=== PATIENT | female | born 1985 | race Caucasian/White ===

== ENCOUNTER 2016-06-21 18:02 | Inpatient (IN) | payer OTHER ==
[2016-06-21] MEDS ORDERED: ONDANSETRON 4 MG/2 ML VIAL IVP STA (20:09)
[2016-06-21] MEDS ORDERED: SODIUM CHLORIDE 0.9% 1,000 ML IV ONE ×2 (20:09→21:02)
[2016-06-21] MEDS ORDERED: ONDANSETRON 4 MG/2 ML VIAL ONE (20:33)
[2016-06-21] MEDS ORDERED: CIPROFLOXACIN 400 MG/200 ML 200 ML IV ONE ×2 (21:01→21:04)
[2016-06-21] MEDS ORDERED: metroNIDAZOLE 500 MG/100 ML 100 ML IV ONE (21:01)
[2016-06-21] MEDS ORDERED: ACETAMINOPHEN 1,000 MG/100 ML 100 ML IV STA (21:01)
[2016-06-21] MEDS ORDERED: HYDROmorphone 1 MG/ML SYRINGE IVP STA (21:01)
[2016-06-21] MEDS ORDERED: ACETAMINOPHEN 1,000 MG/100 ML 100 ML IV ONE (21:04)
[2016-06-21] MEDS ORDERED: HYDROmorphone 1 MG/ML SYRINGE ONE (21:04)
[2016-06-21] MEDS ORDERED: SODIUM CHLORIDE FLUSH 0.9% 10 ML SYRINGE IVP PRN (21:32)
[2016-06-21] MEDS ORDERED: HYDROcod/ACETAM 10 MG/325 MG TABLET PO PRN (21:32)
[2016-06-21] MEDS ORDERED: ZOLPIDEM 5 MG TABLET PO PRN (21:32)
[2016-06-21] MEDS ORDERED: ACETAMINOPHEN 325 MG TABLET PO PRN (21:32)
[2016-06-21] MEDS ORDERED: IOPAMIDOL-300 100 ML VIAL IVP ONE (22:15)
[2016-06-21] MEDS: SODIUM CHLORIDE 0.9% 1,000 ML IV SCH (23:00)
[2016-06-21] MEDS: SODIUM CHLORIDE FLUSH 0.9% 10 ML SYRINGE IVP SCH (23:01)
[2016-06-21] MEDS: sulfaSALAzine 500 MG TABLET PO SCH (23:01)
[2016-06-21] MEDS: methylPREDNISolone SUCCINATE 125 MG/2 ML VIAL IVP SCH (23:51)
[2016-06-21] MEDS: ONDANSETRON 4 MG/2 ML VIAL IVP PRN (23:51)
[2016-06-21] MEDS: HYDROmorphone 1 MG/ML SYRINGE IVP PRN (23:52)
[2016-06-22] MEDS: HYDROcod/ACETAM 5/325 MG TABLET PO PRN ×6 (00:11→22:48)
[2016-06-22] MEDS: HYDROmorphone 1 MG/ML SYRINGE IVP PRN ×8 (02:02→22:47)
[2016-06-22] MEDS: metroNIDAZOLE 500 MG/100 ML 100 ML IV SCH ×4 (03:52→22:36)
[2016-06-22] MEDS: PROCHLORPERAZINE 10 MG/2 ML VIAL IVP PRN ×4 (03:58→23:06)
[2016-06-22] MEDS: SODIUM CHLORIDE 0.9% 1,000 ML IV SCH ×2 (06:15→15:53)
[2016-06-22] MEDS: sulfaSALAzine 500 MG TABLET PO SCH ×3 (06:16→22:36)
[2016-06-22] MEDS: methylPREDNISolone SUCCINATE 125 MG/2 ML VIAL IVP SCH ×2 (06:16→14:38)
[2016-06-22] MEDS: PANTOPRAZOLE 40 MG VIAL IVP SCH (06:16)
[2016-06-22] MEDS: SODIUM CHLORIDE FLUSH 0.9% 10 ML SYRINGE IVP SCH ×3 (06:17→21:32)
[2016-06-22] MEDS: ONDANSETRON 4 MG/2 ML VIAL IVP PRN (08:28)
[2016-06-22] MEDS: CIPROFLOXACIN 400 MG/200 ML 200 ML IV SCH ×2 (08:33→21:31)
[2016-06-22] MEDS: POLYETHYLENE GLYCOL 3350 17 GM PACKET PO SCH (09:07)
[2016-06-22] MEDS: HYDROCORTISONE SUCCINATE 100 MG/2 ML VIAL IVP SCH (22:36)
[2016-06-23] MEDS: HYDROmorphone 1 MG/ML SYRINGE IVP PRN (01:22)
[2016-06-23] MEDS: HYDROcod/ACETAM 5/325 MG TABLET PO PRN ×2 (01:23→17:00)
[2016-06-23] MEDS: metroNIDAZOLE 500 MG/100 ML 100 ML IV SCH (04:40)
[2016-06-23] MEDS: sulfaSALAzine 500 MG TABLET PO SCH ×3 (06:09→21:01)
[2016-06-23] MEDS: PANTOPRAZOLE 40 MG VIAL IVP SCH (06:09)
[2016-06-23] MEDS: HYDROCORTISONE SUCCINATE 100 MG/2 ML VIAL IVP SCH ×3 (06:09→21:02)
[2016-06-23] MEDS: SODIUM CHLORIDE FLUSH 0.9% 10 ML SYRINGE IVP SCH ×3 (06:10→21:02)
[2016-06-23] MEDS: ONDANSETRON 4 MG/2 ML VIAL IVP PRN (06:14)
[2016-06-23] MEDS: POLYETHYLENE GLYCOL 3350 17 GM PACKET PO SCH (08:39)
[2016-06-23] MEDS: CIPROFLOXACIN 400 MG/200 ML 200 ML IV SCH (10:46)
[2016-06-23] MEDS ORDERED: HYDROmorphone 2 MG TABLET PO PRN (13:51)
[2016-06-23] MEDS: ONDANSETRON ODT 4 MG TABLET TL PRN ×2 (14:21→21:01)
[2016-06-23] MEDS: predniSONE 20 MG TABLET PO SCH (15:08)
[2016-06-23] MEDS: metroNIDAZOLE 250 MG TABLET PO SCH ×2 (17:03→23:45)
[2016-06-23] MEDS: CIPROFLOXACIN 250 MG TABLET PO SCH (21:01)
[2016-06-24] MEDS: HYDROcod/ACETAM 5/325 MG TABLET PO PRN ×3 (01:47→09:52)
[2016-06-24] MEDS: ONDANSETRON ODT 4 MG TABLET TL PRN (05:34)
[2016-06-24] MEDS: SODIUM CHLORIDE FLUSH 0.9% 10 ML SYRINGE IVP SCH (06:09)
[2016-06-24] MEDS: sulfaSALAzine 500 MG TABLET PO SCH (06:13)
[2016-06-24] MEDS: metroNIDAZOLE 250 MG TABLET PO SCH (06:14)
[2016-06-24] MEDS ORDERED: PANTOPRAZOLE 40 MG TABLET PO SCH (07:00)
[2016-06-24] MEDS: CIPROFLOXACIN 250 MG TABLET PO SCH (08:32)
[2016-06-24] MEDS: predniSONE 20 MG TABLET PO SCH (08:32)
[2016-06-24] MEDS: POLYETHYLENE GLYCOL 3350 17 GM PACKET PO SCH (08:33)
== END 2016-06-24 10:06 | disposition home or self-care (01) | DRG 387 ==
DX: K50.10 Crohn's disease of large intestine without complications (principal); Z91.040 Latex allergy status; Z80.41 Family history of malignant neoplasm of ovary

== ENCOUNTER 2016-09-01 17:08 | Emergency (ER) | payer OTHER ==
[2016-09-01] MEDS ORDERED: predniSONE 20 MG TABLET PO STA (20:22)
[2016-09-01] MEDS ORDERED: LIDOCAINE 2%-EPI 1:100000 20 ML MDV ONE (20:22)
[2016-09-01] MEDS ORDERED: predniSONE 20 MG TABLET ONE (20:23)
== END 2016-09-01 20:44 | disposition home or self-care (01) ==
DX: L27.1 Localized skin eruption due to drugs and medicaments taken internally (principal); L72.3 Sebaceous cyst; L53.9 Erythematous condition, unspecified; K50.90 Crohn's disease, unspecified, without complications
CPT/HCPCS: 10160; 11400; 99283; J7512

== ENCOUNTER 2016-10-24 11:31 | Emergency (ER) | payer OTHER ==
--- NOTE | 2016-10-24 11:47 | ED Physician Documentation ---
PD HPI SKIN - Stated complaint Stated Complaint: LUMP RT SIDE FACE - Chief complaint Chief Complaint: Wound - History obtained from History obtained from: Patient - History of Present Illness Timing - onset: How many days ago (has had lump right side of face for couple of days, without drainage. Also has had ongoing mild stomach pains and some soft stool. Had not noted blood but is dark from iron supplement. She checked her blood count this morning on home machine and it read Hgb 5.5 so here for evaluation. Prior had been 8.2 or so.) Timing - duration: Days (2) Timing - details: Gradual onset Location: Face (right side) Quality / character: Painful, Discolored (red), Swelling. No: Draining Similar symptoms before: Diagnosis (staph abscesses) Review of Systems Constitutional: denies: Fever, Chills GI: reports: Diarrhea, Bloody / black stool (dark from iron, has not changed noticably.). denies: Vomiting, Constipation, Hematemesis : denies: Dysuria, Frequency Neurologic: denies: Near syncope, Headache PD PAST MEDICAL HISTORY - Past Medical History Cardiovascular: None Respiratory: None Neuro: None Endocrine/Autoimmune: None GI: Cholelithiasis, Ulcerative colitis, Crohn's disease : None HEENT: None Psych: None Musculoskeletal: None Derm: None - Past Surgical History Past Surgical History: No - Present Medications Home Medications: Ambulatory Orders Medication Instructions Recorded Confirmed Mesalamine [Canasa] 1 gm ID QPM 06/21/16 06/22/16 sulfaSALAzine [Azulfidine] 1,000 mg PO BIDWM 06/21/16 06/22/16 Hyoscyamine Sulfate [Levsin-Sl] 0.125 mg SL .Q4H PRN 06/22/16 06/22/16 Ciprofloxacin [Cipro] 250 mg PO BID #8 tablet 06/24/16 HYDROcod/ACETAM 5/325 [[place] 5/325] 1 tab PO Q4HR PRN #60 tablet 06/24/16 Ondansetron Odt [Zofran] 4 mg TL Q6H PRN #30 tablet 06/24/16 Prednisone 10 mg PO UD #108 tablet 06/24/16 metroNIDAZOLE [Flagyl] 500 mg PO Q6HR #16 tablet 06/24/16 predniSONE [Deltasone] 20 mg PO [id number] #21 tab 04/20/17 Cyanocobalamin (Vitamin B-12) 500 mcg SL DAILY #30 tab.subl 10/24/16 [Vitamin B-12 (500 mcg sublingual)] Doxycycline Hyclate 100 mg PO BID #14 tablet 10/24/16 Ferrous Sulfate 310 mg PO DAILY #200 ml 10/24/16 - Allergies Allergies/Adverse Reactions: Allergies Allergy/AdvReac Type Severity Reaction Status Date / Time latex Allergy Intermediate Itching Verified 10/24/16 12:05 Sulfa (Sulfonamide Allergy Unknown Verified 10/24/16 12:05 Antibiotics) - Social History Does the pt smoke?: No Smoking Status: Never smoker Does the pt drink ETOH?: No Does the pt have substance abuse?: No - Immunizations Immunizations are current?: Yes - POLST Patient has POLST: No PD ED PE NORMAL - Vitals Vital signs reviewed: Yes - General General: Alert and oriented X 3, No acute distress, Well developed/nourished - HEENT HEENT: Ears normal, Pharynx benign, Other (right side of face preauricular with 1 cm rounded tender, red lesion without drainage. No surrounding redness. ) - Neck Neck: Supple, no meningeal sign, No adenopathy - Cardiac Cardiac: RRR, No murmur - Respiratory Respiratory: Clear bilaterally - Abdomen Abdomen: Normal bowel sounds, Soft, Non tender, Non distended, No organomegaly - Rectal Rectal: Deferred - Back Back: No CVA TTP - Derm Derm: Normal color, Warm and dry - Extremities Extremities: Normal ROM s pain, No edema, No calf tenderness / cord - Neuro Neuro: Alert and oriented X 3, No motor deficit, Normal speech Results - Vitals Vitals: Oxygen O2 Source Room air - Labs Labs: Laboratory Tests 10/24/16 10/24/16 10/24/16 12:24 12:24 12:24 WBC 6.4 RBC 3.76 L Hgb 8.5 L Hct 27.1 L MCV 72.1 L MCH 22.5 L MCHC 31.2 L RDW 18.5 H Plt Count 405 MPV 6.8 L Reticulocyte % (Auto) 2.87 H Neut # 3.0 Lymph # 2.6 Slope # 0.6 Eos # 0.1 Baso # 0.0 Absolute Nucleated RBC 0.00 Nucleated RBCs 0.0 ESR Absolute Retic 0.108 Sodium 137 Potassium 3.6 Chloride 102 Carbon Dioxide 27 Anion Gap 8.0 BUN 11 Creatinine 0.5 Estimated GFR (MDRD) 146 Glucose 93 Calcium 9.2 Iron 8 L TIBC 322 % Saturation 2 L Transferrin 230 Total Bilirubin 0.3 AST 17 ALT 14 Alkaline Phosphatase 49 Total Protein 6.6 L Albumin 3.2 Globulin 3.4 Albumin/Globulin Ratio 0.9 L Lipase 19 L Vitamin B12 800 Folate 33.00 Blood Type Antibody Screen 10/24/16 10/24/16 12:24 12:24 WBC RBC Hgb Hct MCV MCH MCHC RDW Plt Count MPV Reticulocyte % (Auto) Neut # Lymph # Slope # Eos # Baso # Absolute Nucleated RBC Nucleated RBCs ESR 53 H Absolute Retic Sodium Potassium Chloride Carbon Dioxide Anion Gap BUN Creatinine Estimated GFR (MDRD) Glucose Calcium Iron TIBC % Saturation Transferrin Total Bilirubin AST ALT Alkaline Phosphatase Total Protein Albumin Globulin Albumin/Globulin Ratio Lipase Vitamin B12 Folate Blood Type A NEGATIVE Antibody Screen NEGATIVE Procedures - Abscess I&D (location) right side of face Preparation: Lidocaine 1% Incision: Incised with scalpel, Purulent drainage (just 2 drops), Irrigated Other: Pt tolerated well, Dressing applied (bandaid) PD MEDICAL DECISION MAKING - ED course Complexity details: reviewed results (blood count here is adequate. Still iron deficiet despite pill supplements. Can change to liquid orally to see if better. If not PMD would need to set up iron infusions. Her home Hgb test was inaccurate, which is good. Facial small abscess was lanced with drops of pus out. Will see how it does without abx at this point, pt preference. ), considered differential, d/w patient Departure - Departure Disposition: 01 Home, Self Care Clinical Impression: Facial abscess Crohn disease Qualifiers: Gastrointestinal tract location: unspecified location Digestive disease complication type: without complication Qualified Code(s): K50.90 - Crohn's disease, unspecified, without complications Anemia Qualifiers: Anemia type: iron deficiency Iron deficiency anemia type: chronic blood loss Qualified Code(s): D50.0 - Iron deficiency anemia secondary to blood loss ( chronic) Condition: Stable Record reviewed to determine appropriate education?: Yes Instructions: ED Abscess IandD, Disease Crohn Dc Follow-Up: [facility] [Provider Group] Prescriptions: Doxycycline Hyclate 100 mg PO BID #14 tablet Ferrous Sulfate 310 mg PO DAILY #200 ml Cyanocobalamin (Vitamin B-12) [Vitamin B-12 (500 mcg sublingual)] 500 mcg SL DAILY #30 tab.subl Comments: Change oral Iron tablet to liquid version to see if absorbs better. Other meds as usual. Warm compresses to the face abscess a few times daily. Recheck if not gone away over a few days; start Doxycycline oral antibiotic if it worsens. Discharge Date/Time: 10/24/16 14:16
[2016-10-24] MEDS ORDERED: SODIUM CHLORIDE 0.9% 1,000 ML IV ONE (12:18)
[2016-10-24 12:46] LABS: BASOPHILS % (AUTO) 0.7 %; EOSINOPHILS # (AUTO) 0.1 10^3/uL (0.0-0.7); EOSINOPHILS % (AUTO) 2.2 %; HCT - HEMATOCRIT 27.1 % (37.0-47.0); HGB - HEMOGLOBIN 8.5 g/dL (12.0-16.0); IMMATURE RETIC FRACTION 0.46; LYMPHOCYTES # (AUTO) 2.6 10^3/uL (1.5-3.5); LYMPHOCYTES % (AUTO) 40.3 %; MEAN CORPUSCULAR HEMOGLOBIN 22.5 pg (27.0-31.0); MEAN CORPUSCULAR HGB CONC 31.2 g/dL (32.0-36.0); MEAN CORPUSCULAR VOLUME 72.1 fL (81.0-99.0); MEAN PLATELET VOLUME 6.8 fL (7.9-10.8); MONOCYTES # (AUTO) 0.6 10^3/uL (0.0-1.0); MONOCYTES % (AUTO) 9.9 %; NEUTROPHILS % (AUTO) 46.9 %; RED BLOOD COUNT 3.76 10^6/uL (4.20-5.40); RED CELL DISTRIBUTION WIDTH 18.5 % (12.0-15.0); UNCORRECTED WHITE BLOOD COUNT 6.4 x10^3/uL; WHITE BLOOD COUNT 6.4 x10^3/uL (4.8-10.8)
[2016-10-24 13:22] LABS: ALBUMIN/GLOBULIN RATIO 0.9 (1.0-2.2); BILIRUBIN,TOTAL 0.3 mg/dL (0.2-1.0); CALCIUM 9.2 mg/dL (8.5-10.3); CREATININE 0.5 mg/dL (0.4-1.0); POTASSIUM 3.6 mmol/L (3.5-5.0); TOTAL PROTEIN 6.6 g/dL (6.7-8.2)
[2016-10-24 14:10] VITALS: BP 100/61
== END 2016-10-24 14:16 | disposition home or self-care (01) ==
LOC: ED 11:31
DX: L02.01 Cutaneous abscess of face (principal); K50.90 Crohn's disease, unspecified, without complications; D50.0 Iron deficiency anemia secondary to blood loss (chronic)
CPT/HCPCS: 10060; 36415; 80053; 82607; 82746; 82747; 83540; 83690; 84466; 85025; 85044; 85651; 86850; 86900; 86901; 99283; 99284

== ENCOUNTER 2016-11-02 07:06 | Outpatient (CLI) | payer OTHER ==
[2016-11-02] MEDS ORDERED: GADOBUTROL 7.5 MMOL/7.5 ML VIAL IVP ONE (09:06)
--- NOTE | 2016-11-02 13:06 | MRI Report ---
EXAM: MR ABDOMEN WITH AND WITHOUT CONTRAST MR PELVIS WITH AND WITHOUT CONTRAST EXAM DATE: 11/02/2016 09:08 AM. CLINICAL HISTORY: Indeterminate colitis. COMPARISON: 06/21/2016. 11/25/2013. TECHNIQUE: Multiplanar breath-hold T1, T2, and DWI sequences obtained through the abdomen and pelvis on an MR scanner. Images obtained before and after administration of 7 mL Gadav[address] intravenous contra st. FINDINGS: Abdomen: Lung Bases: Lung bases are clear. Included portions of the heart are unremarkable. Liver: Homogeneous signal intensity. No solid hepatic lesions. No intrahepatic ductal dilatation. 4 mm cyst in the dome of the liver. Gallbladder: The gallbladder is partially distended. There are intraluminal calculi. No gallbladder w all thickening or pericholecystic fluid. Pancreas: Pancreas enhances homogeneously. No pancreatic ductal dilatation. No peripancreatic edema. Spleen: The spleen appears normal. Kidneys and Adrenals: The kidneys appear normal with no mass or hydronephrosis. There are no cysts in the kidneys. The adrenals appear normal. Bowel: Adequate distention of the small bowel. Normal small jejunal and ileal fold pattern. The duode num and duodenal sweep are unremarkable. The terminal ileum appears unremarkable. No evidence for int ra-abdominal fluid collection. No evidence for fistula. No enlarged mesenteric lymph nodes are identi fied. No mass effect. Moderate volume of stool in the colon. No evidence of diverticulitis. Descendin g colon and distal transverse colon are mildly distended. There appears to be mucosal enhancement inv olving the distal transverse and descending colon extending to the proximal into the sigmoid colon. T he remainder of the sigmoid colon and rectum are filled with moderate volume of stool without clear e vidence for enhancement or thickening. Portions of the descending colon are not significantly distend ed. No other areas of abnormal wall enhancement are seen in the remainder of the small bowel or colon . The appendix is not well-visualized. No pericecal or right lower quadrant inflammatory changes are identified. Retroperitoneum: Abdominal aorta and IVC are normal in caliber nonenlarged retroperitoneal lymph node s. Pelvis: Bladder: Urinary bladder is adequately distended and unremarkable. Reproductive Organs: The uterus is unremarkable. Bilateral subcentimeter ovarian follicles are presen t, the largest in the right ovary measuring 8 mm. Small volume of pelvic free fluid. No pelvic adenop athy. No osseous abnormalities are identified. IMPRESSION: 1. Mucosal enhancement of the distal transverse and descending colon to the sigmoid colon with some p ortion of the descending colon not significantly distended. Findings may represent low-grade inflamm atory/infectious colitis and/or impart related to lack of significant distention. Moderate volume of stool is present in the remainder of the colon. No pericolonic fluid collections. 2. No area of abnormal enhancement or thickening of the small bowel, in particular the terminal ileum . Interval resolution of mild thickening of the transverse duodenum noted compared to 06/21/2016. No intra-abdominal or pelvic fluid collections. No evidence for fistula. 3. No enlarged abdominal or pelvic lymph nodes. 4. Cholelithiasis. No biliary ductal dilatation. [facility] Referring Provider Line: [phone] SITE ID: [id number]
== END 2016-11-02 07:07 | disposition home or self-care (01) ==
LOC: DI 07:06
DX: K52.9 Noninfective gastroenteritis and colitis, unspecified (principal)
CPT/HCPCS: 72197; 74183; A9585

== ENCOUNTER 2016-11-28 17:07 | Emergency (ER) | payer OTHER ==
[2016-11-28 17:19] VITALS: BP 110/74
[2016-11-28] MEDS ORDERED: PROPARACAINE 0.5% OPHTH DROPS 15 ML ONE (19:21)
[2016-11-28] MEDS ORDERED: TOBRAM/DEXAMETH OPHTH DROPS 2.5 ML RIGHTEYE STA (19:37)
--- NOTE | 2016-11-28 19:39 | ED Physician Documentation ---
PD HPI OPHTHO - Stated complaint Stated Complaint: R EYE IRRITATION - Chief complaint Chief Complaint: Heent - History obtained from History obtained from: Patient - History of Present Illness Timing - onset: Other (Accidentally used contact cleaning solution in her right eye instead of rinsing solution about 13 days ago and has persistent pain. She has not used her contacts since then. Vision is mildly blurry.) Review of Systems Constitutional: denies: Fever, Chills Eyes: reports: Discharge, Irritation. denies: Loss of vision, Decreased vision Ears: denies: Loss of hearing, Ear pain PD PAST MEDICAL HISTORY - Past Medical History Past Medical History: Yes Cardiovascular: None Respiratory: None Neuro: None Endocrine/Autoimmune: None GI: Cholelithiasis, Ulcerative colitis : None HEENT: None Psych: None Musculoskeletal: None Derm: None - Past Surgical History Past Surgical History: No - Present Medications Home Medications: Ambulatory Orders Medication Instructions Recorded Confirmed Cyanocobalamin (Vitamin B-12) 500 mcg SL DAILY #30 tab.subl 10/24/16 11/28/16 [Vitamin B-12 (500 mcg sublingual)] Ascorbic Acid [Vitamin C with [place] 0 mg DAILY 11/28/16 11/28/16 Hips] Biotin 0 mg DAILY 11/28/16 11/28/16 Cholecalciferol (Vitamin D3) 9,000 units DAILY 11/28/16 11/28/16 [Vitamin D3] Ferrous Sulfate 10 ml PO DAILY 11/28/16 11/28/16 Folic Acid 0 mg DAILY 11/28/16 11/28/16 Lactob/S.thermophl/Bifido [Vsl#3] 2 tab DAILY 11/28/16 11/28/16 Multivitamin [Multivitamins] 1 tab DAILY 11/28/16 11/28/16 Psyllium Husk [Fiber] 4 tab DAILY 11/28/16 11/28/16 Zinc 0 mg DAILY 11/28/16 11/28/16 - Allergies Allergies/Adverse Reactions: Allergies Allergy/AdvReac Type Severity Reaction Status Date / Time latex Allergy Intermediate Itching Verified 11/28/16 17:19 Sulfa (Sulfonamide Allergy Unknown Verified 11/28/16 17:19 Antibiotics) - Social History Does the pt smoke?: No Smoking Status: Never smoker Does the pt drink ETOH?: No Does the pt have substance abuse?: No - Immunizations Immunizations are current?: Yes - POLST Patient has POLST: No PD ED PE NORMAL - Vitals Vital signs reviewed: Yes - General General: Alert and oriented X 3, No acute distress - HEENT HEENT: PERRL, EOMI, Other (Right eye has focal medial perilimbal inflammation with Chemosis no fluorescein uptake) - Neuro Neuro: Alert and oriented X 3, Normal speech - Psych Psych: Normal mood, Normal affect Results - Vitals Vitals: Vital Signs - 24 hr 11/28/16 17:16 Temperature 36.6 C Heart Rate 100 Respiratory 18 Rate Blood Pressure 110/74 O2 Saturation 100 Oxygen O2 Source Room air PD MEDICAL DECISION MAKING - ED course ED course: Because of 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 Departure - Departure Disposition: 01 Home, Self Care Clinical Impression: Episcleritis of right eye Condition: Good Record reviewed to determine appropriate education?: Yes Comments: 1 eye drop twice a day for 1 week, then stop. [place] No contacts until they clear you.
[2016-11-28] MEDS ORDERED: TOBRAM/DEXAMETH OPHTH DROPS 2.5 ML ONE (20:05)
== END 2016-11-28 20:10 | disposition home or self-care (01) ==
LOC: ED 17:07
DX: H15.101 Unspecified episcleritis, right eye (principal)
CPT/HCPCS: 99283; A9270; J3490

== ENCOUNTER 2018-01-08 02:46 | Emergency (ER) | payer OTHER ==
[2018-01-08] MEDS ORDERED: SODIUM CHLORIDE 0.9% 1,000 ML IV ONE (02:51)
[2018-01-08] MEDS ORDERED: fentaNYL 100 MCG/2 ML VIAL IVP STA ×2 (03:00→05:00)
[2018-01-08] MEDS ORDERED: METOCLOPRAMIDE 10 MG/2 ML VIAL IVP STA (03:00)
--- NOTE | 2018-01-08 03:01 | ED Physician Documentation ---
History of Present Illness - Stated complaint Stated Complaint: ULCERATIVE COLITIS FLARE - Chief complaint Chief Complaint: Abd Pain - Additonal information Additional information: 32-year-old female presents the emergency department with increasing generalized abdominal pain with increasing episodes of diarrhea and blood in her stools. The patient has a history of ulcerative colitis and her symptoms started 2 weeks ago but in the past 3 days her symptoms have significantly progressed. The patient reports increased pain, cramping, mucousy bloody stools. This evening the patient had trouble sleeping and presented to the emergency department. No focal area of pain. No relieving factors. Symptoms are described as moderate. No other associated symptoms. Review of Systems Constitutional: reports: Fatigue. denies: Fever, Chills Eyes: denies: Discharge Ears: denies: Ear pain Nose: denies: Congestion Throat: denies: Sore throat Cardiac: denies: Chest pain / pressure Respiratory: denies: Dyspnea GI: reports: Abdominal Pain, Other (Bloody mucousy stools) : denies: Dysuria Skin: denies: Rash Musculoskeletal: denies: Neck pain Neurologic: denies: Generalized weakness Immunocompromised: denies: Chemotherapy PD PAST MEDICAL HISTORY - Past Medical History Cardiovascular: None Respiratory: None Endocrine/Autoimmune: None GI: Cholelithiasis, Ulcerative colitis : None HEENT: None Psych: None Musculoskeletal: None Derm: None - Past Surgical History Past Surgical History: No - Present Medications Home Medications: Ambulatory Orders Medication Instructions Recorded Confirmed Cyanocobalamin (Vitamin B-12) 500 mcg SL DAILY #30 tab.subl 10/24/16 11/28/16 [Vitamin B-12 (500 mcg sublingual)] Ascorbic Acid [Vitamin C with [place]aina 0 mg DAILY 11/28/16 11/28/16 Hips] Biotin 0 mg DAILY 11/28/16 11/28/16 Cholecalciferol (Vitamin D3) 9,000 units DAILY 11/28/16 11/28/16 [Vitamin D3] Ferrous Sulfate 10 ml PO DAILY 11/28/16 11/28/16 Folic Acid 0 mg DAILY 11/28/16 11/28/16 Lactob/S.thermophl/Bifido [Vsl#3] 2 tab DAILY 11/28/16 11/28/16 Multivitamin [Multivitamins] 1 tab DAILY 11/28/16 11/28/16 Psyllium Husk [Fiber] 4 tab DAILY 11/28/16 11/28/16 Zinc 0 mg DAILY 11/28/16 11/28/16 - Allergies Allergies/Adverse Reactions: Allergies Allergy/AdvReac Type Severity Reaction Status Date / Time latex Allergy Intermediate Itching Verified 01/08/18 02:53 Sulfa (Sulfonamide Allergy Unknown Verified 01/08/18 02:53 Antibiotics) - Social History Does the pt smoke?: No Smoking Status: Never smoker Does the pt drink ETOH?: No Does the pt have substance abuse?: No - Immunizations Immunizations are current?: Yes - POLST Patient has POLST: No PD ED PE NORMAL - General General: Alert and oriented X 3, No acute distress - HEENT HEENT: Atraumatic, PERRL, EOMI, Ears normal - Neck Neck: Supple, no meningeal sign - Cardiac Cardiac: RRR, Strong equal pulses - Respiratory Respiratory: No respiratory distress - Abdomen Abdomen: Soft. No: Non tender (Generalized lower abdominal tenderness, no rebound or peritoneal signs), Non distended - Back Back: No CVA TTP - Derm Derm: Normal color, No rash - Extremities Extremities: No deformity - Neuro Neuro: Alert and oriented X 3 Results - Vitals Vitals: Vital Signs - 24 hr 01/08/18 01/08/18 02:50 04:54 Temperature 37.5 C 36.8 C Heart Rate 80 74 Respiratory 18 15 Rate Blood Pressure 118/76 100/67 O2 Saturation 99 98 Oxygen O2 Source Room air - Labs Labs: Laboratory Tests 01/08/18 01/08/18 01/08/18 03:20 03:20 03:20 WBC 9.4 RBC 4.50 Hgb 13.7 Hct 39.2 MCV 87.0 MCH 30.5 MCHC 35.1 RDW 12.4 Plt Count 269 MPV 7.9 Neut # (Auto) 7.0 H Lymph # (Auto) 1.6 Simpson # (Auto) 0.6 Eos # (Auto) 0.2 Baso # (Auto) 0.0 Absolute Nucleated RBC 0.00 Nucleated RBC % 0.0 Sodium 136 Potassium 3.7 Chloride 101 Carbon Dioxide 26 Anion Gap 9.0 BUN 11 Creatinine 0.7 Estimated GFR (MDRD) 98 Glucose 103 H Calcium 9.4 Total Bilirubin 0.4 AST 22 ALT 18 Alkaline Phosphatase 61 Total Protein 7.4 Albumin 3.8 Globulin 3.6 Albumin/Globulin Ratio 1.1 Lipase 38 Serum HCG, Qual NEGATIVE Urine Color Urine Clarity Urine pH Ur Specific [place] Urine Protein Urine Glucose (UA) Urine Ketones Urine Occult Blood Urine Nitrite Urine Bilirubin Urine Urobilinogen Ur Leukocyte Esterase Urine RBC Urine WBC Ur Squamous Epith Cells Urine Bacteria Ur Microscopic Review Urine Culture Comments 01/08/18 03:50 WBC RBC Hgb Hct MCV MCH MCHC RDW Plt Count MPV Neut # (Auto) Lymph # (Auto) Simpson # (Auto) Eos # (Auto) Baso # (Auto) Absolute Nucleated RBC Nucleated RBC % Sodium Potassium Chloride Carbon Dioxide Anion Gap BUN Creatinine Estimated GFR (MDRD) Glucose Calcium Total Bilirubin AST ALT Alkaline Phosphatase Total Protein Albumin Globulin Albumin/Globulin Ratio Lipase Serum HCG, Qual Urine Color YELLOW Urine Clarity CLEAR Urine pH 6.0 Ur Specific [place] <=1.005 Urine Protein NEGATIVE Urine Glucose (UA) NEGATIVE Urine Ketones TRACE Urine Occult Blood TRACE-INTA Urine Nitrite NEGATIVE Urine Bilirubin NEGATIVE Urine Urobilinogen 0.2 (NORMAL) Ur Leukocyte Esterase TRACE H Urine RBC None Seen Urine WBC 4-5 Ur Squamous Epith Cells MOD Squamous H Urine Bacteria None Seen Ur Microscopic Review INDICATED Urine Culture Comments NOT INDICATED - Rads (name of study) CT abd/pelvis Radiology: Final report received (IMPRESSION: Wall thickening in the descending colon, compatible with colitis. No evidence of bowel obstruction or perforation. ) PD MEDICAL DECISION MAKING - ED course ED course: On reevaluation the patient is resting comfortably and she appears to be much improved. The patient appears well-hydrated, nontoxic and her workup shows colitis. This appears uncomplicated and currently the patient appears appropriate for discharge home and ongoing outpatient management. I discussed the findings and plan with the patient. She understands and agrees to the plan. I discussed warning signs and recommended returning to the emergency department immediately for worsening or any concerns - Sepsis Event Vital Signs: Vital Signs - 24 hr 01/08/18 01/08/18 02:50 04:54 Temperature 37.5 C 36.8 C Heart Rate 80 74 Respiratory 18 15 Rate Blood Pressure 118/76 100/67 O2 Saturation 99 98 Oxygen O2 Source Room air Departure - Departure Disposition: 01 Home, Self Care Clinical Impression: Acute abdominal pain Ulcerative colitis Qualifiers: Ulcerative colitis location: unspecified ulcerative colitis location Digestive disease complication type: with rectal bleeding Qualified Code(s): K51.911 - Ulcerative colitis, unspecified with rectal bleeding Condition: Good Instructions: Colitis Ulcerative Dc, Abdominal Pain, ED Diet [place] Follow-Up: Don Jones DO [Primary Care Provider] - Within 3 Days Comments: Please follow-up with your manager market this week for Reevaluation. Please return to the emergency department immediately for worsening symptoms or any concerns
[2018-01-08 03:45] LABS: ALBUMIN 3.8 g/dL (3.2-5.5); ALBUMIN/GLOBULIN RATIO 1.1 (1.0-2.2); BILIRUBIN,TOTAL 0.4 mg/dL (0.2-1.0); CALCIUM 9.4 mg/dL (8.5-10.3); CREATININE 0.7 mg/dL (0.4-1.0); TOTAL PROTEIN 7.4 g/dL (6.7-8.2)
[2018-01-08 03:48] LABS: BASOPHILS % (AUTO) 0.3 %; EOSINOPHILS # (AUTO) 0.2 10^3/uL (0.0-0.7); EOSINOPHILS % (AUTO) 2.1 %; HGB - HEMOGLOBIN 13.7 g/dL (12.0-16.0); LYMPHOCYTES # (AUTO) 1.6 10^3/uL (1.5-3.5); LYMPHOCYTES % (AUTO) 16.7 %; MEAN CORPUSCULAR HEMOGLOBIN 30.5 pg (27.0-31.0); MEAN CORPUSCULAR HGB CONC 35.1 g/dL (32.0-36.0); MEAN PLATELET VOLUME 7.9 fL (7.9-10.8); MONOCYTES # (AUTO) 0.6 10^3/uL (0.0-1.0); MONOCYTES % (AUTO) 6.7 %; NEUTROPHILS % (AUTO) 74.2 %; PLT - PLATELET COUNT 269 10^3/uL (130-450); RED CELL DISTRIBUTION WIDTH 12.4 % (12.0-15.0); WHITE BLOOD COUNT 9.4 x10^3/uL (4.8-10.8)
[2018-01-08 04:11] LABS: BILIRUBIN,URINE NEGATIVE (NEGATIVE); GLUCOSE, URINE (UA) NEGATIVE (NEGATIVE); KETONES,URINE (UA) TRACE mg/dL (NEGATIVE); LEUKOCYTE ESTERASE, URINE TRACE (NEGATIVE); NITRITE,URINE NEGATIVE (NEGATIVE); OCCULT BLOOD,URINE TRACE-INTA (NEGATIVE); PROTEIN,URINE NEGATIVE (NEGATIVE); UROBILINOGEN,URINE 0.2 (NORMAL) E.U./dL (NORMAL)
[2018-01-08 04:15] LABS: BACTERIA,URINE None Seen /HPF (None Seen); CLARITY,URINE CLEAR (CLEAR); RBC,URINE None Seen /HPF (0-5); SQUAMOUS EPITHELIAL CELL,UR MOD Squamous (<= Few)
[2018-01-08 04:15] LABS: HCG,QUALITATIVE BLOOD NEGATIVE
[2018-01-08] MEDS ORDERED: IOPAMIDOL-300 100 ML VIAL ONE (04:18)
[2018-01-08] MEDS ORDERED: IOPAMIDOL-300 100 ML VIAL IVP ONE (04:49)
[2018-01-08] MEDS ORDERED: PROMETHAZINE INJ 25 MG in SODIUM CHLORIDE 0.9% 50 ML IV STA (05:00)
--- NOTE | 2018-01-08 05:05 | CT Report ---
Reason: Increasing abdominal pain, h/o UC Procedure Date: 01/08/2018 Accession Number: [id number] / [id number] Procedure: CT - Abdomen/Pelvis W/ CPT Code: FULL RESULT: EXAM: CT ABDOMEN AND PELVIS EXAM DATE: 01/08/2018 04:52 AM. CLINICAL HISTORY: Increasing abdominal pain, history of ulcerative colitis COMPARISONS: ABDOMEN/PELVIS W/ 06/21/2016. TECHNIQUE: Routine helical CT imaging was performed through the abdomen and pelvis. IV contrast: ISOVUE 300 100mL. Enteric contrast: No. Reconstructions: Coronal and sagittal. In accordance with CT protocol optimization, one or more of the following dose reduction techniques were utilized for this exam: automated exposure control, adjustment of mA and/or KV based on patient size, or use of iterative reconstructive technique. FINDINGS: Lung Bases: Unremarkable. Liver: Normal. No masses. Gallbladder/Bile Ducts: Unremarkable. Spleen: Normal. Pancreas: Normal. Adrenal Glands: Normal. Kidneys: Normal. No masses or hydronephrosis. Peritoneal Cavity/Bowel: There is wall thickening of the descending colon. No small bowel dilatation, free gas, or free fluid. No abdominal adenopathy. The appendix is well visualized and normal. Pelvic Organs: IUD is noted in the uterus. No pelvic adenopathy or free fluid. Vasculature: No aneurysms or other significant abnormality. Bones: No significant abnormality. Other: None. IMPRESSION: Wall thickening in the descending colon, compatible with colitis. No evidence of bowel obstruction or perforation. [facility]
[2018-01-08] MEDS: diphenhydrAMINE INJ 50 MG/ML VIAL IVP STA ×2 (05:06→05:16)
[2018-01-08] MEDS ORDERED: DEXAMETHASONE 10 MG/ML VIAL IV STA (05:36)
[2018-01-08 06:48] VITALS: BP 101/60
== END 2018-01-08 06:20 | disposition home or self-care (01) ==
LOC: ED 02:46
DX: K51.911 Ulcerative colitis, unspecified with rectal bleeding (principal)
CPT/HCPCS: 36415; 74177; 80053; 81001; 83690; 84703; 85025; 96365; 96375; 96376; 99283; 99284; J1200; J2765; J7040; Q9967; 81003; 87086

== ENCOUNTER 2018-01-23 21:25 | Inpatient (IN) | payer OTHER ==
[2018-01-23] MEDS ORDERED: SODIUM CHLORIDE 0.9% 1,000 ML IV ONE (21:54)
[2018-01-23] MEDS ORDERED: ONDANSETRON 4 MG/2 ML VIAL IVP STA (22:10)
[2018-01-23] MEDS ORDERED: ACETAMINOPHEN 1,000 MG/100 ML 100 ML IV ONE (22:10)
[2018-01-23] MEDS ORDERED: methylPREDNISolone SUCCINATE 125 MG/2 ML VIAL IVP STA (22:19)
[2018-01-23 22:28] LABS: BASOPHILS # (AUTO) 0.1 10^3/uL (0.0-0.1); BASOPHILS % (AUTO) 0.5 %; EOSINOPHILS % (AUTO) 0.3 %; HGB - HEMOGLOBIN 12.6 g/dL (12.0-16.0); LYMPHOCYTES # (AUTO) 2.4 10^3/uL (1.5-3.5); LYMPHOCYTES % (AUTO) 21.1 %; MEAN CORPUSCULAR HGB CONC 34.3 g/dL (32.0-36.0); MEAN CORPUSCULAR VOLUME 87.5 fL (81.0-99.0); MEAN PLATELET VOLUME 6.7 fL (7.9-10.8); MONOCYTES # (AUTO) 1.2 10^3/uL (0.0-1.0); MONOCYTES % (AUTO) 10.1 %; NEUTROPHILS # (AUTO) 7.8 10^3/uL (1.5-6.6); PLT - PLATELET COUNT 377 10^3/uL (130-450); RED BLOOD COUNT 4.18 10^6/uL (4.20-5.40); RED CELL DISTRIBUTION WIDTH 12.4 % (12.0-15.0); WHITE BLOOD COUNT 11.5 x10^3/uL (4.8-10.8)
[2018-01-23] MEDS ORDERED: MORPHINE 2 MG/ML CARPUJECT IVP STA (22:43)
[2018-01-23 22:44] LABS: ALBUMIN 3.6 g/dL (3.2-5.5); BILIRUBIN,TOTAL 0.4 mg/dL (0.2-1.0); CALCIUM 9.1 mg/dL (8.5-10.3); CREATININE 0.8 mg/dL (0.4-1.0); TOTAL PROTEIN 7.1 g/dL (6.7-8.2)
[2018-01-23] MEDS ORDERED: CIPROFLOXACIN 400 MG/200 ML 200 ML IV ONE (23:56)
[2018-01-23] MEDS ORDERED: metroNIDAZOLE 500 MG/100 ML 500 MG/100 ML BAG IV ONE (23:56)
--- NOTE | 2018-01-23 23:59 | ED Physician Documentation ---
PD HPI ABD PAIN - Stated complaint Stated Complaint: RECTAL BLEEDING/VOMITING - Chief complaint Chief Complaint: Abd Pain - History obtained from History obtained from: Patient - History of Present Illness Timing - onset: How many weeks ago (1) Timing - details: Gradual onset, Still present Quality: Cramping, Aching Location: All over / everywhere Worsened by: Eating Associated symptoms: Fever, Nausea, Vomiting, Diarrhea Similar symptoms before: Work up / diagnostics, Treatment Recently seen: Emergency Dept - Additional information Additional information: Patient is a 32 year old female with a history of crohns who is presenting to the emergency department for fevers, chills and worsening blood in her stools. Patient came in about [address] at that time showed some enteritis. patient had been on some oral steroids but her symptoms persist.ed. Patient has had multiple episodes of bloody stools. Review of Systems Constitutional: reports: Fever, Chills Eyes: reports: Reviewed and negative Ears: reports: Reviewed and negative Nose: reports: Reviewed and negative Cardiac: denies: Chest pain / pressure Respiratory: denies: Dyspnea, Cough GI: reports: Abdominal Pain, Nausea, Diarrhea, Bloody / black stool : denies: Dysuria, Frequency, Hesitancy Musculoskeletal: denies: Neck pain, Back pain Neurologic: denies: Focal weakness Immunocompromised: denies: Immunocompromised PD PAST MEDICAL HISTORY - Past Medical History Past Medical History: Yes Cardiovascular: None Respiratory: None Endocrine/Autoimmune: None GI: Cholelithiasis, Ulcerative colitis : None HEENT: None Psych: None Musculoskeletal: None Derm: None - Past Surgical History Past Surgical History: No - Present Medications Home Medications: Ambulatory Orders Medication Instructions Recorded Confirmed Cyanocobalamin (Vitamin B-12) 500 mcg SL DAILY #30 tab.subl 10/24/16 11/28/16 [Vitamin B-12 (500 mcg sublingual)] Ascorbic Acid [Vitamin C with Alaina 0 mg DAILY 11/28/16 11/28/16 Hips] Biotin 0 mg DAILY 11/28/16 11/28/16 Cholecalciferol (Vitamin D3) 9,000 units DAILY 11/28/16 11/28/16 [Vitamin D3] Ferrous Sulfate 10 ml PO DAILY 11/28/16 11/28/16 Folic Acid 0 mg DAILY 11/28/16 11/28/16 Lactob/S.thermophl/Bifido [Vsl#3] 2 tab DAILY 11/28/16 11/28/16 Multivitamin [Multivitamins] 1 tab DAILY 11/28/16 11/28/16 Psyllium Husk [Fiber] 4 tab DAILY 11/28/16 11/28/16 Zinc 0 mg DAILY 11/28/16 11/28/16 HYDROcod/ACETAM 5/325 [Leroy 5/325] 1 each PO Q6H PRN #15 tablet 01/08/18 Ondansetron Odt [Zofran] 4 mg TL Q6H PRN #10 tablet 01/08/18 - Allergies Allergies/Adverse Reactions: Allergies Allergy/AdvReac Type Severity Reaction Status Date / Time latex Allergy Intermediate Itching Verified 01/08/18 02:53 Sulfa (Sulfonamide Allergy Unknown Verified 01/08/18 02:53 Antibiotics) - Social History Does the pt smoke?: No Smoking Status: Never smoker Does the pt drink ETOH?: No Does the pt have substance abuse?: No - Immunizations Immunizations are current?: Yes - POLST Patient has POLST: No PD ED PE NORMAL - Vitals Vital signs reviewed: Yes - General General: Alert and oriented X 3 - Neck Neck: Supple, no meningeal sign - Respiratory Respiratory: No respiratory distress - Derm Derm: Normal color, Warm and dry - Extremities Extremities: No deformity - Neuro Neuro: Alert and oriented X 3 Eye Opening: Spontaneous Motor: Obeys Commands Verbal: Confused GCS Score: 14 PD ED PE EXPANDED - General General: Alert, Other (moderate distress) - HEENT HEENT: Dry mucous membranes - Cardiac Cardiac: Tachy - Abdomen Abdomen: Tender to palpation, Generalized/diffuse. No: Rebound, Guarding Results - Vitals Vitals: Vital Signs - 24 hr 01/23/18 01/23/18 01/23/18 21:30 22:55 22:57 Temperature 38.9 C H 39.2 C H 39.2 C H Heart Rate 111 H 95 Respiratory 18 16 Rate Blood Pressure 102/65 113/62 O2 Saturation 100 100 01/23/18 01/23/18 01/24/18 23:20 23:59 00:19 Temperature 38.6 C H Heart Rate 99 98 Respiratory 16 17 Rate Blood Pressure 106/60 104/65 O2 Saturation 99 97 Oxygen O2 Source Room air - Labs Labs: Laboratory Tests 01/23/18 01/23/18 01/23/18 22:20 22:20 22:20 WBC 11.5 H RBC 4.18 L Hgb 12.6 Hct 36.6 L MCV 87.5 MCH 30.0 MCHC 34.3 RDW 12.4 Plt Count 377 MPV 6.7 L Neut # (Auto) 7.8 H Lymph # (Auto) 2.4 Tyrrell # (Auto) 1.2 H Eos # (Auto) 0.0 Baso # (Auto) 0.1 Absolute Nucleated RBC 0.01 Nucleated RBC % 0.1 Sodium 138 Potassium 3.3 L Chloride 99 L Carbon Dioxide 27 Anion Gap 12.0 BUN 13 Creatinine 0.8 Estimated GFR (MDRD) 84 L Glucose 106 H Lactic Acid 1.6 Calcium 9.1 Total Bilirubin 0.4 AST 22 ALT 24 Alkaline Phosphatase 60 Total Protein 7.1 Albumin 3.6 Globulin 3.5 Albumin/Globulin Ratio 1.0 Lipase 43 PD MEDICAL DECISION MAKING - ED course Complexity details: reviewed old records, reviewed results, re-evaluated patient, considered differential, d/w patient, d/w sap ppm consultant ED course: Patient was seen and examined at bedside. IV access was gained and labs were drawn. patient was started on a fluid bolus, zofran solumedrol and IV acetaminophen. Patient's symptoms did improve. patient did have a bowel movement with significant blood. Patient's previous notes were reviewed and patient recently had CT that showed colitis. Patient was started on cipro and flagly. Case was discussed with the hospitaist and patient was was admitted for further evaluation and care. - Sepsis Event Vital Signs: Vital Signs - 24 hr 01/23/18 01/23/18 01/23/18 21:30 22:55 22:57 Temperature 38.9 C H 39.2 C H 39.2 C H Heart Rate 111 H 95 Respiratory 18 16 Rate Blood Pressure 102/65 113/62 O2 Saturation 100 100 01/23/18 01/23/18 01/24/18 23:20 23:59 00:19 Temperature 38.6 C H Heart Rate 99 98 Respiratory 16 17 Rate Blood Pressure 106/60 104/65 O2 Saturation 99 97 Oxygen O2 Source Room air Departure - Departure Disposition: [facility] DC/Xfer Clinical Impression: GI bleed, Crohn disease
--- NOTE | 2018-01-24 01:11 | HISTORY & PHYSICAL EXAMINATION ---
Chief Complaint - Chief Complaint Chief Complaint: left-sided abdominal pain and bloody stools History of Present Illness - History of Present Illness HPI Comment/Other: Patient is a 32 y/o female with history of crohn's disease who presented to the ED with complain of left sided abdominal pain and multiple bloody stools. He symptoms have been going on for a month but came in today because of the persistence and frequency of her symptoms. She was last admitted to the hospital in June 2017 for similar symptoms. She is currently on lialda and prednisone 30mg po. She is being worked up by her gastro-enterologist (Dr Arian Jose), in anticipation of starting Humira. She had flex sig done on 01/19/18. She reports nausea, vomiting, increased body pain and a fever. She denies chest pain or CHARANJIT. Her last CT of abdomen/pelvis was on 01/08/18 and showed colitis only. History - Past Medical History Cardiovascular: reports: None Respiratory: reports: None Endocrine/Autoimmune: reports: None GI: reports: Cholelithiasis, Crohn's disease : reports: None HEENT: reports: None Psych: reports: None Musculoskeletal: reports: None Derm: reports: None MRSA Hx?: No - Family & Social History Living arrangement: At home Living Situation: With spouse/s.o. - Substance History Use: Uses substance without health or social issues: NONE - POLST Patient has POLST: No POLST Status: Full Code Meds/Allgy - Home Medications Home Medications: Ambulatory Orders Medication Instructions Recorded Confirmed Cyanocobalamin (Vitamin B-12) 500 mcg SL DAILY #30 tab.subl 10/24/16 11/28/16 [Vitamin B-12 (500 mcg sublingual)] Ascorbic Acid [Vitamin C with Alaina 0 mg DAILY 11/28/16 11/28/16 Hips] Biotin 0 mg DAILY 11/28/16 11/28/16 Cholecalciferol (Vitamin D3) 9,000 units DAILY 11/28/16 11/28/16 [Vitamin D3] Ferrous Sulfate 10 ml PO DAILY 11/28/16 11/28/16 Folic Acid 0 mg DAILY 11/28/16 11/28/16 Lactob/S.thermophl/Bifido [Vsl#3] 2 tab DAILY 11/28/16 11/28/16 Multivitamin [Multivitamins] 1 tab DAILY 11/28/16 11/28/16 Psyllium Husk [Fiber] 4 tab DAILY 11/28/16 11/28/16 Zinc 0 mg DAILY 11/28/16 11/28/16 HYDROcod/ACETAM 5/325 [[place]berry 5/325] 1 each PO Q6H PRN #15 tablet 01/08/18 Ondansetron Odt [Zofran] 4 mg TL Q6H PRN #10 tablet 01/08/18 - Allergies Allergies/Adverse Reactions: Allergies Allergy/AdvReac Type Severity Reaction Status Date / Time latex Allergy Intermediate Itching Verified 01/08/18 02:53 Sulfa (Sulfonamide Allergy Unknown Verified 01/08/18 02:53 Antibiotics) Review of Systems - Constitutional Constitutional: reports: Fatigue - Eyes Eyes: denies: Pain, Irritation, Vision loss - Ears, Nose & Throat Ears, Nose & Throat: denies: Tinnitus, Vertigo, Nosebleeds, Sore throat - Cardiovascular Cariovascular: denies: Irregular heart rate, Palpitations, Chest pain - Respiratory Respiratory: denies: Cough, Sputum production, Wheezing, Hemoptysis - Gastrointestinal Gastrointestinal: reports: Abdominal pain, Diarrhea, Bloody stools, Nausea, Vomiting. denies: Abdominal distention - Genitourinary Genitourinary: denies: Dysuria, Frequency, Urgency, Hematuria - Musculoskeletal Musculoskeletal: denies: Muscle aches, Stiffness, Joint pain, Joint swelling - Integumentary Integumentary: denies: Rash, Pruritis, Dryness - Neurological Neurological: denies: General weakness, Focal weakness, Headache, Dizziness, Numbness - Psychiatric Psychiatric: denies: Depression, Anxiety - Hematologic/Lymphatic Hematologic/Lymphatic: denies: Anemia, Bruising, Petechiae, Blood clots, Lymphadenopathy Exam - Vital Signs Vital Signs: Vital Signs x48h Temp Pulse Resp BP Pulse Ox 01/24/18 00:19 98 17 104/65 97 01/23/18 23:59 38.6 C H 01/23/18 23:20 99 16 106/60 99 01/23/18 22:57 39.2 C H 01/23/18 22:55 39.2 C H 95 16 113/62 100 01/23/18 21:30 38.9 C H 111 H 18 102/65 100 - Physical Exam General Appearance: positive: Moderate distress Eyes Bilateral: positive: Normal inspection, PERRL, EOMI ENT: positive: ENT inspection nml, Pharynx nml Neck: positive: Nml inspection, Thyroid nml, No JVD Respiratory: positive: Chest non-tender, No respiratory distress, Breath sounds nml Cardiovascular: positive: Regular rate & rhythm, No murmur Abdomen: positive: No organomegaly, Nml bowel sounds, No distention, Tenderness Rectal: positive: Bloody stool Back: positive: Nml inspection Skin: positive: Color nml, No rash, Warm, Dry Extremities: positive: Non-tender, Full ROM, Nml appearance, No pedal edema Neurologic/Psychiatric: positive: Oriented x3, CN's nml (2-12), Motor nml, Sensation nml Conclusion/Plan - Problem List (1) Crohn disease Conclusion/Plan: Bowel rest except for meds and sips of water Patient given solumedrol in the ED Hydrocortisone 100mg IV tid ordered per GI recs from previous admission Cipro 400mg IV bid Flagyl 500mg IV tid IV hydration with normal saline at 100ml/hr Pain management with morphine Qualifiers: Gastrointestinal tract location: large intestine Digestive disease complication type: with rectal bleeding Qualified Code(s): K50.111 - Crohn's disease of large intestine with rectal bleeding - Lab Results Fish Bones: 01/23/18 22:20 01/23/18 22:20 Core Measures - Anticipated LOS I expect patient to be DC'd or transferred within 96 hours.: Yes - DVT/VTE - Prophylaxis VTE/DVT Device ordered at admit?: Yes VTE/DVT Prophylaxis med ordered at admit?: No Not Ordered - Medical Reason: Contraindicated
[2018-01-24] MEDS: MORPHINE 2 MG/ML CARPUJECT IVP PRN ×5 (02:16→16:58)
[2018-01-24] MEDS: SODIUM CHLORIDE FLUSH 0.9% 10 ML SYRINGE IVP SCH ×3 (02:16→16:03)
[2018-01-24] MEDS: SODIUM CHLORIDE 0.9% 1,000 ML IV SCH ×2 (02:30→13:34)
[2018-01-24 05:16] LABS: CALCIUM 8.3 mg/dL (8.5-10.3); CREATININE 0.5 mg/dL (0.4-1.0)
[2018-01-24 05:26] LABS: BASOPHILS % (AUTO) 0.1 %; HGB - HEMOGLOBIN 10.2 g/dL (12.0-16.0); LYMPHOCYTES # (AUTO) 1.5 10^3/uL (1.5-3.5); LYMPHOCYTES % (AUTO) 16.5 %; MEAN CORPUSCULAR HEMOGLOBIN 30.7 pg (27.0-31.0); MEAN CORPUSCULAR HGB CONC 34.7 g/dL (32.0-36.0); MEAN CORPUSCULAR VOLUME 88.4 fL (81.0-99.0); MONOCYTES # (AUTO) 0.2 10^3/uL (0.0-1.0); MONOCYTES % (AUTO) 2.2 %; NEUTROPHILS # (AUTO) 7.2 10^3/uL (1.5-6.6); NEUTROPHILS % (AUTO) 81.2 %; PLT - PLATELET COUNT 297 10^3/uL (130-450); RED BLOOD COUNT 3.33 10^6/uL (4.20-5.40); RED CELL DISTRIBUTION WIDTH 12.3 % (12.0-15.0); WHITE BLOOD COUNT 8.8 x10^3/uL (4.8-10.8)
[2018-01-24] MEDS: SODIUM CHLORIDE FLUSH 0.9% 10 ML SYRINGE IVP PRN (06:30)
[2018-01-24] MEDS: PANTOPRAZOLE 40 MG VIAL IVP SCH (06:30)
[2018-01-24 07:07] LABS: BILIRUBIN,URINE NEGATIVE (NEGATIVE); GLUCOSE, URINE (UA) NEGATIVE (NEGATIVE); KETONES,URINE (UA) NEGATIVE (NEGATIVE); LEUKOCYTE ESTERASE, URINE NEGATIVE (NEGATIVE); NITRITE,URINE NEGATIVE (NEGATIVE); OCCULT BLOOD,URINE NEGATIVE (NEGATIVE); PROTEIN,URINE NEGATIVE (NEGATIVE); UROBILINOGEN,URINE 0.2 (NORMAL) E.U./dL (NORMAL)
[2018-01-24 07:09] LABS: CLARITY,URINE CLEAR (CLEAR)
[2018-01-24] MEDS: POLYETHYLENE GLYCOL 3350 17 GM PACKET PO SCH (08:11)
[2018-01-24] MEDS: HYDROCORTISONE SUCCINATE 100 MG/2 ML VIAL IVP SCH ×2 (08:11→13:32)
[2018-01-24] MEDS: CIPROFLOXACIN 400 MG/200 ML 200 ML IV SCH ×2 (08:17→19:15)
[2018-01-24] MEDS: metroNIDAZOLE 500 MG/100 ML 500 MG/100 ML BAG IV SCH ×2 (09:18→16:03)
[2018-01-24] MEDS: LACTOB/S.THERMOPHL/BIFIDO CAPSULE PO SCH (16:03)
[2018-01-24] MEDS: OMEGA-3 ACID ETHYL ESTERS 1 GM CAPSULE PO SCH (16:03)
[2018-01-24] MEDS: FOLIC ACID 1 MG TABLET PO SCH (16:03)
[2018-01-24] MEDS: HYDROmorphone 2 MG/ML VIAL IVP PRN (17:26)
--- NOTE | 2018-01-24 19:34 | PROVIDER PROGRESS NOTE ---
Assessment/Plan - Problem List (1) Exacerbation of Crohn's disease Qualifiers: Digestive disease complication type: with rectal bleeding Qualified Code(s): K50.911 - Crohn's disease, unspecified, with rectal bleeding Assessment/Plan: Pt knows her recurrent presentation and she thinks she is slightly better. She spoke to her new Image Assembler, who advised that we recheck a Hepatitis panel. Continue current plan for Crohn's treatment with iv antibiotics, pain meds, bowel rest. (2) Abdominal pain Qualifiers: Abdominal location: lower abdomen, unspecified Qualified Code(s): R10.30 - Lower abdominal pain, unspecified Assessment/Plan: Will add Hyosciamine (which he mother a nurse suggested) and I will try it. (3) Anemia Qualifiers: Qualified Code(s): D50.0 - Iron deficiency anemia secondary to blood loss (chronic) Assessment/Plan: This is presumably from her bloody diarrhea. Follow CBC daily. - Current Meds Current Meds: Current Medications Generic Name Dose Route Start Last Admin Trade Name Anu PRN Reason Stop Dose Admin Folic Acid 1 mg 01/24/18 15:36 01/24/18 16:03 PO 1 mg DAILY SUSANNE Administration Hydrocortisone Sodium Succinate 100 mg 01/24/18 09:00 01/24/18 13:32 Solu-Cortef IVP 100 mg TID SUSANNE Administration Hydromorphone HCl 2 mg 01/24/18 17:07 01/24/18 17:26 Dilaudid (Vial) IVP 2 mg Q2H PRN Administration PAIN Ciprofloxacin 200 mls @ 200 mls/hr 01/24/18 08:00 01/24/18 19:15 Cipro 400 Mg/200 Ml IV 200 mls/hr Q12H SUSANNE Administration Sodium Chloride 1,000 mls @ 100 mls/hr 01/24/18 01:00 01/24/18 13:34 Normal Saline 0.9% IV 100 mls/hr .Q10H SUSANNE Administration Metronidazole 500 mg in 100 mls @ 100 mls/hr 01/24/18 09:00 01/24/18 18:17 Flagyl 500 Mg/100 Ml IV Infused Q8H SUSANNE Infusion Lactobacil/Bifidobact/Streptococcus 1 cap 01/24/18 17:00 01/24/18 16:03 Vsl#3 PO 1 cap BIDWM SUSANNE Administration [id number] Ethyl Esters 1 gm 01/24/18 17:00 01/24/18 16:03 Lovaza PO 1 gm DAILY SUSANNE Administration Pantoprazole Sodium 40 mg 01/24/18 07:00 01/24/18 06:30 Protonix IVP 40 mg QDAC SUSANNE Administration Polyethylene Glycol 17 gm 01/24/18 09:00 01/24/18 08:11 Miralax PO 17 gm DAILY SUSANNE Administration Sodium Chloride 10 ml 01/24/18 00:36 01/24/18 06:30 Normal Saline Flush 0.9% IVP 10 ml PRN PRN Administration NEEDED PER PROVIDER ORDERS Sodium Chloride 10 ml 01/24/18 01:00 01/24/18 16:03 Normal Saline Flush 0.9% IVP Not Given 0100,0900,1700 SUSANNE - Lab Result Fish Bone Diagrams: 01/25/18 04:35 01/25/18 04:35 - Additional Planning My Orders: My Active Orders 01/24/18 13:03 HEPATITIS B CORE AB TOTAL [REFLAB] Routine HEPATITIS B SURFACE AB QN IMM [REFLAB] Routine HEPATITIS B SURFACE AG W CONF [REFLAB] Routine HEPATITIS BE ANTIBODY [REFLAB] Routine HEPATITIS BE ANTIGEN [REFLAB] Routine HEPATITIS C AB RFLX RNA QN [REFLAB] Routine HEPATITIS C RNA QUANT RT PCR [REFLAB] Routine HEPATITIS C VIRAL RNA GENOTYPE [REFLAB] Routine 01/24/18 15:36 Folic Acid 1 mg PO DAILY 01/24/18 17:00 Lactob/S.thermophl/Bifido [Vsl#3] 1 cap PO BIDWM [place]-3 Acid Ethyl Esters [Lovaza] 1 gm PO DAILY 01/24/18 17:07 HYDROmorphone (VIAL) [Dilaudid (Vial)] 2 mg IVP Q2H PRN 01/24/18 Dinner Clear Liquid Diet [DIET] 01/25/18 07:00 Hyoscyamine [Levsin] 0.125 mg SL AC Subjective - Subjective Patient Reports: Feeling Better, Other (Still having loose stools and minimal abdominal pain now,) Objective Vital Signs: Vital Signs - 24 hr 01/23/18 01/23/18 01/23/18 21:30 22:55 22:57 Temperature 38.9 C H 39.2 C H 39.2 C H Heart Rate 111 H 95 Heart Rate [ Brachial] Respiratory 18 16 Rate Blood Pressure 102/65 113/62 Blood Pressure [Right Brachial artery] O2 Saturation 100 100 01/23/18 01/23/18 01/24/18 23:20 23:59 00:19 Temperature 38.6 C H Heart Rate 99 98 Heart Rate [ Brachial] Respiratory 16 17 Rate Blood Pressure 106/60 104/65 Blood Pressure [Right Brachial artery] O2 Saturation 99 97 01/24/18 01/24/18 01/24/18 01:10 01:44 02:00 Temperature 37 C 37.1 C Heart Rate 88 69 Heart Rate [ 62 Brachial] Respiratory 16 16 18 Rate Blood Pressure 99/59 L 103/60 Blood Pressure 101/53 L [Right Brachial artery] O2 Saturation 97 97 99 01/24/18 01/24/18 01/24/18 07:46 10:41 16:00 Temperature 36.6 C 36.6 C 36.9 C Heart Rate 55 L Heart Rate [ 54 L 62 Brachial] Respiratory 19 18 14 Rate Blood Pressure Blood Pressure 91/47 L 95/59 L [Right Brachial artery] O2 Saturation 90 L 99 98 Oxygen O2 Source Room air I&O (Last 24 Hrs): Intake and Output Totals x24h 01/22/18 01/23/18 01/24/18 23:59 23:59 23:59 Intake Total 1100 1700 Output Total 550 Balance 1100 1150 General: Alert, Oriented x3 HEENT: Mucous membr. moist/pink Neck: Supple, No JVD Neuro: Non Focal Cardiovascular: No murmurs Respiratory: No respiratory distress, Breath sounds nml Abdomen: Soft, No tenderness Extremities: No edema - Results Results: Laboratory Results WBC 8.8 x10^3/uL (4.8-10.8) 01/24/18 04:50 RBC 3.33 10^6/uL (4.20-5.40) L 01/24/18 04:50 Hgb 10.2 g/dL (12.0-16.0) L 01/24/18 04:50 Hct 29.5 % (37.0-47.0) L 01/24/18 04:50 MCV 88.4 fL (81.0-99.0) 01/24/18 04:50 MCH 30.7 pg (27.0-31.0) 01/24/18 04:50 MCHC 34.7 g/dL (32.0-36.0) 01/24/18 04:50 RDW 12.3 % (12.0-15.0) 01/24/18 04:50 Plt Count 297 10^3/uL (130-450) 01/24/18 04:50 MPV 7.0 fL (7.9-10.8) L 01/24/18 04:50 Neut # (Auto) 7.2 10^3/uL (1.5-6.6) H 01/24/18 04:50 Lymph # (Auto) 1.5 10^3/uL (1.5-3.5) 01/24/18 04:50 Hendry # (Auto) 0.2 10^3/uL (0.0-1.0) 01/24/18 04:50 Eos # (Auto) 0.0 10^3/uL (0.0-0.7) 01/24/18 04:50 Baso # (Auto) 0.0 10^3/uL (0.0-0.1) 01/24/18 04:50 Absolute Nucleated RBC 0.00 x10^3/uL 01/24/18 04:50 Nucleated RBC % 0.0 /100WBC 01/24/18 04:50 Sodium 138 mmol/L (135-145) 01/24/18 04:50 Potassium 4.1 mmol/L (3.5-5.0) 01/24/18 04:50 Chloride 105 mmol/L (101-111) 01/24/18 04:50 Carbon Dioxide 25 mmol/L (21-32) 01/24/18 04:50 Anion Gap 8.0 (6-13) 01/24/18 04:50 BUN 10 mg/dL (6-20) 01/24/18 04:50 Creatinine 0.5 mg/dL (0.4-1.0) 01/24/18 04:50 Estimated GFR (MDRD) 145 (>89) 01/24/18 04:50 Glucose 157 mg/dL (70-100) H 01/24/18 04:50 Lactic Acid 1.6 mmol/L (0.5-2.2) 01/23/18 22:20 Calcium 8.3 mg/dL (8.5-10.3) L 01/24/18 04:50 Total Bilirubin 0.4 mg/dL (0.2-1.0) 01/23/18 22:20 AST 22 IU/L (10-42) 01/23/18 22:20 ALT 24 IU/L (10-60) 01/23/18 22:20 Alkaline Phosphatase 60 IU/L (42-121) 01/23/18 22:20 Total Protein 7.1 g/dL (6.7-8.2) 01/23/18 22:20 Albumin 3.6 g/dL (3.2-5.5) 01/23/18 22:20 Globulin 3.5 g/dL (2.1-4.2) 01/23/18 22:20 Albumin/Globulin Ratio 1.0 (1.0-2.2) 01/23/18 22:20 Lipase 43 U/L (22-51) 01/23/18 22:20 Urine Color YELLOW 01/24/18 06:45 Urine Clarity CLEAR (CLEAR) 01/24/18 06:45 Urine pH 7.0 PH (5.0-7.5) 01/24/18 06:45 Ur Specific Serena 1.020 (1.002-1.030) 01/24/18 06:45 Urine Protein NEGATIVE mg/dL (NEGATIVE) 01/24/18 06:45 Urine Glucose (UA) NEGATIVE mg/dL (NEGATIVE) 01/24/18 06:45 Urine Ketones NEGATIVE mg/dL (NEGATIVE) 01/24/18 06:45 Urine Occult Blood NEGATIVE (NEGATIVE) 01/24/18 06:45 Urine Nitrite NEGATIVE (NEGATIVE) 01/24/18 06:45 Urine Bilirubin NEGATIVE (NEGATIVE) 01/24/18 06:45 Urine Urobilinogen 0.2 (NORMAL) E.U./dL (NORMAL) 01/24/18 06:45 Ur Leukocyte Esterase NEGATIVE (NEGATIVE) 01/24/18 06:45 Ur Microscopic Review NOT INDICATED 01/24/18 06:45 Urine Culture Comments NOT INDICATED 01/24/18 06:45 - Procedures Procedures: Procedures CLOSED ENDOSCOPIC BIOPSY OF LARGE INTESTINE (11/26/13) ABX Reporting Has patient been on IV antibiotics over the past 48 hours?: Yes
[2018-01-25] MEDS: HYDROmorphone 2 MG/ML VIAL IVP PRN ×5 (00:22→18:31)
[2018-01-25] MEDS: SODIUM CHLORIDE FLUSH 0.9% 10 ML SYRINGE IVP SCH ×3 (00:23→14:28)
[2018-01-25] MEDS: SODIUM CHLORIDE FLUSH 0.9% 10 ML SYRINGE IVP PRN ×5 (00:23→21:47)
[2018-01-25] MEDS: ONDANSETRON 4 MG/2 ML VIAL IVP PRN (00:40)
[2018-01-25] MEDS: HYDROCORTISONE SUCCINATE 100 MG/2 ML VIAL IVP SCH ×4 (00:41→21:47)
[2018-01-25] MEDS: SODIUM CHLORIDE 0.9% 1,000 ML IV SCH ×2 (02:09→07:24)
[2018-01-25] MEDS: metroNIDAZOLE 500 MG/100 ML 500 MG/100 ML BAG IV SCH ×3 (03:42→16:17)
[2018-01-25 05:11] LABS: EOSINOPHILS % (AUTO) 0.1 %; HGB - HEMOGLOBIN 9.8 g/dL (12.0-16.0); LYMPHOCYTES % (AUTO) 14.9 %; MEAN CORPUSCULAR HEMOGLOBIN 30.8 pg (27.0-31.0); MEAN CORPUSCULAR HGB CONC 35.2 g/dL (32.0-36.0); MEAN CORPUSCULAR VOLUME 87.5 fL (81.0-99.0); MONOCYTES # (AUTO) 0.6 10^3/uL (0.0-1.0); MONOCYTES % (AUTO) 8.3 %; NEUTROPHILS # (AUTO) 5.3 10^3/uL (1.5-6.6); NEUTROPHILS % (AUTO) 76.7 %; PLT - PLATELET COUNT 291 10^3/uL (130-450); RED BLOOD COUNT 3.19 10^6/uL (4.20-5.40); RED CELL DISTRIBUTION WIDTH 12.2 % (12.0-15.0)
[2018-01-25 05:19] LABS: CALCIUM 8.1 mg/dL (8.5-10.3); CREATININE 0.6 mg/dL (0.4-1.0)
[2018-01-25] MEDS: PANTOPRAZOLE 40 MG VIAL IVP SCH (07:13)
[2018-01-25] MEDS: HYOSCYAMINE SL 0.125 MG TABLET SL SCH ×3 (07:15→16:17)
[2018-01-25] MEDS: CIPROFLOXACIN 400 MG/200 ML 200 ML IV SCH ×2 (07:45→20:16)
[2018-01-25] MEDS: FOLIC ACID 1 MG TABLET PO SCH (07:45)
[2018-01-25] MEDS: LACTOB/S.THERMOPHL/BIFIDO CAPSULE PO SCH ×2 (07:45→16:17)
[2018-01-25] MEDS: OMEGA-3 ACID ETHYL ESTERS 1 GM CAPSULE PO SCH (09:30)
[2018-01-25] MEDS: POLYETHYLENE GLYCOL 3350 17 GM PACKET PO SCH (09:30)
[2018-01-25] MEDS ORDERED: SODIUM CHLORIDE 0.9% 1,000 ML IV SCH (15:50)
--- NOTE | 2018-01-25 15:56 | PROVIDER PROGRESS NOTE ---
Assessment/Plan - Problem List (1) Exacerbation of Crohn's disease Qualifiers: Digestive disease complication type: with rectal bleeding Qualified Code(s): K50.911 - Crohn's disease, unspecified, with rectal bleeding Assessment/Plan: Diarrhea has turned into slightly formed with liquid stool, no blood. Pt tolerated parts of her solid food diet. Pharmacy has obtained reconciled home med list and she was on Bentyl (which wasnt working), Prednisone and Liada. Will restart Prednisone and Liada (or our substitute compound). Hyosciamine has improved the crampy pain. Will decrease iv fluids to assess if she can sustain fluid needs. Will continue food to assess if she can take in nutritional needs. Possible DCh tomorrow. (2) Abdominal pain Qualifiers: Abdominal location: lower abdomen, unspecified Qualified Code(s): R10.30 - Lower abdominal pain, unspecified Assessment/Plan: Pain resolved with 1 day of bowel rest and new Hyosciamine. Continue present plan. (3) Anemia Qualifiers: Qualified Code(s): D50.0 - Iron deficiency anemia secondary to blood loss (chronic) Assessment/Plan: Will assess B12, Folate, Iron studies and replace. Follow CBC. - Current Meds Current Meds: Current Medications Generic Name Dose Route Start Last Admin Trade Name Freq PRN Reason Stop Dose Admin Folic Acid 1 mg 01/24/18 15:36 01/25/18 07:45 PO 1 mg DAILY SUSANNE Administration Hydrocortisone Sodium Succinate 100 mg 01/24/18 09:00 01/25/18 13:35 Solu-Cortef IVP 100 mg TID SUSANNE Administration Hydromorphone HCl 2 mg 01/24/18 17:07 01/25/18 14:28 Dilaudid (Vial) IVP 2 mg Q2H PRN Administration PAIN Hyoscyamine 0.125 mg 01/25/18 07:00 01/25/18 10:32 Levsin SL 0.125 mg AC SUSANNE Administration Ciprofloxacin 200 mls @ 200 mls/hr 01/24/18 08:00 01/25/18 09:00 Cipro 400 Mg/200 Ml IV Infused Q12H SUSANNE Infusion Metronidazole 500 mg in 100 mls @ 100 mls/hr 01/24/18 09:00 01/25/18 10:30 Flagyl 500 Mg/100 Ml IV Infused Q8H SUSANNE Infusion Lactobacil/Bifidobact/Streptococcus 1 cap 01/24/18 17:00 01/25/18 07:45 Vsl#3 PO 1 cap BIDWM SUSANNE Administration [id number] Ethyl Esters 1 gm 01/24/18 17:00 01/25/18 09:30 Lovaza PO 1 gm DAILY SUSANNE Administration Ondansetron HCl 4 mg 01/24/18 00:36 01/25/18 00:40 Zofran Inj IVP 4 mg Q6HR PRN Administration Nausea / Vomiting Pantoprazole Sodium 40 mg 01/24/18 07:00 01/25/18 07:13 Protonix IVP 40 mg QDAC SUSANNE Administration Polyethylene Glycol 17 gm 01/24/18 09:00 01/25/18 09:30 Miralax PO 17 gm DAILY SUSANNE Administration Sodium Chloride 10 ml 01/24/18 00:36 01/25/18 04:10 Normal Saline Flush 0.9% IVP 10 ml PRN PRN Administration NEEDED PER PROVIDER ORDERS Sodium Chloride 10 ml 01/24/18 01:00 01/25/18 14:28 Normal Saline Flush 0.9% IVP 10 ml 0100,0900,1700 SUSANNE Administration - Lab Result Fish Bone Diagrams: 01/25/18 04:35 01/25/18 04:35 - Additional Planning My Orders: My Active Orders 01/24/18 15:36 Folic Acid 1 mg PO DAILY 01/24/18 17:00 Lactob/S.thermophl/Bifido [Vsl#3] 1 cap PO BIDWM [place]-3 Acid Ethyl Esters [Lovaza] 1 gm PO DAILY 01/24/18 17:07 HYDROmorphone (VIAL) [Dilaudid (Vial)] 2 mg IVP Q2H PRN 01/25/18 07:00 Hyoscyamine [Levsin] 0.125 mg SL AC 01/25/18 15:49 predniSONE [Deltasone] 30 mg PO DAILY 01/25/18 15:50 Sodium Chloride 0.9% [Normal Saline 0.9%] 1,000 ml IV 30 mls/hr 01/25/18 21:00 Mesalamine [Lialda] 2.4 mg PO BID 01/25/18 Dinner Regular Diet [DIET] Subjective - Subjective Patient Reports: Feeling Better Objective Vital Signs: Vital Signs - 24 hr 01/24/18 01/25/18 01/25/18 16:00 00:00 04:52 Temperature 36.9 C 36.9 C 37.0 C Heart Rate [ 62 68 54 L Brachial] Respiratory 14 16 16 Rate Blood Pressure 95/59 L 96/54 L 120/65 [Right Brachial artery] O2 Saturation 98 96 98 01/25/18 08:47 Temperature 36.8 C Heart Rate [ 55 L Brachial] Respiratory 18 Rate Blood Pressure 111/62 [Right Brachial artery] O2 Saturation 100 Oxygen O2 Source Room air I&O (Last 24 Hrs): Intake and Output Totals x24h 01/23/18 01/24/18 01/25/18 23:59 23:59 23:59 Intake Total 1100 2880 2140 Output Total 550 3 Balance 1100 2330 2137 General: Alert, Oriented x3 HEENT: Mucous membr. moist/pink, Other (Appears tired) Neck: Supple, No JVD Neuro: Non Focal Cardiovascular: Normal S1, Normal S2, No murmurs Respiratory: No respiratory distress, Breath sounds nml Abdomen: Soft, No tenderness Extremities: No edema - Results Results: Laboratory Results WBC 7.0 x10^3/uL (4.8-10.8) 01/25/18 04:35 RBC 3.19 10^6/uL (4.20-5.40) L 01/25/18 04:35 Hgb 9.8 g/dL (12.0-16.0) L 01/25/18 04:35 Hct 27.9 % (37.0-47.0) L 01/25/18 04:35 MCV 87.5 fL (81.0-99.0) 01/25/18 04:35 MCH 30.8 pg (27.0-31.0) 01/25/18 04:35 MCHC 35.2 g/dL (32.0-36.0) 01/25/18 04:35 RDW 12.2 % (12.0-15.0) 01/25/18 04:35 Plt Count 291 10^3/uL (130-450) 01/25/18 04:35 MPV 7.0 fL (7.9-10.8) L 01/25/18 04:35 Neut # (Auto) 5.3 10^3/uL (1.5-6.6) 01/25/18 04:35 Lymph # (Auto) 1.0 10^3/uL (1.5-3.5) L 01/25/18 04:35 [place] # (Auto) 0.6 10^3/uL (0.0-1.0) 01/25/18 04:35 Eos # (Auto) 0.0 10^3/uL (0.0-0.7) 01/25/18 04:35 Baso # (Auto) 0.0 10^3/uL (0.0-0.1) 01/25/18 04:35 Absolute Nucleated RBC 0.00 x10^3/uL 01/25/18 04:35 Nucleated RBC % 0.0 /100WBC 01/25/18 04:35 Sodium 137 mmol/L (135-145) 01/25/18 04:35 Potassium 3.7 mmol/L (3.5-5.0) 01/25/18 04:35 Chloride 103 mmol/L (101-111) 01/25/18 04:35 Carbon Dioxide 27 mmol/L (21-32) 01/25/18 04:35 Anion Gap 7.0 (6-13) 01/25/18 04:35 BUN 9 mg/dL (6-20) 01/25/18 04:35 Creatinine 0.6 mg/dL (0.4-1.0) 01/25/18 04:35 Estimated GFR (MDRD) 117 (>89) 01/25/18 04:35 Glucose 135 mg/dL (70-100) H 01/25/18 04:35 Lactic Acid 1.6 mmol/L (0.5-2.2) 01/23/18 22:20 Calcium 8.1 mg/dL (8.5-10.3) L 01/25/18 04:35 Total Bilirubin 0.4 mg/dL (0.2-1.0) 01/23/18 22:20 AST 22 IU/L (10-42) 01/23/18 22:20 ALT 24 IU/L (10-60) 01/23/18 22:20 Alkaline Phosphatase 60 IU/L (42-121) 01/23/18 22:20 Total Protein 7.1 g/dL (6.7-8.2) 01/23/18 22:20 Albumin 3.6 g/dL (3.2-5.5) 01/23/18 22:20 Globulin 3.5 g/dL (2.1-4.2) 01/23/18 22:20 Albumin/Globulin Ratio 1.0 (1.0-2.2) 01/23/18 22:20 Lipase 43 U/L (22-51) 01/23/18 22:20 Urine Color YELLOW 01/24/18 06:45 Urine Clarity CLEAR (CLEAR) 01/24/18 06:45 Urine pH 7.0 PH (5.0-7.5) 01/24/18 06:45 Ur Specific [place] 1.020 (1.002-1.030) 01/24/18 06:45 Urine Protein NEGATIVE mg/dL (NEGATIVE) 01/24/18 06:45 Urine Glucose (UA) NEGATIVE mg/dL (NEGATIVE) 01/24/18 06:45 Urine Ketones NEGATIVE mg/dL (NEGATIVE) 01/24/18 06:45 Urine Occult Blood NEGATIVE (NEGATIVE) 01/24/18 06:45 Urine Nitrite NEGATIVE (NEGATIVE) 01/24/18 06:45 Urine Bilirubin NEGATIVE (NEGATIVE) 01/24/18 06:45 Urine Urobilinogen 0.2 (NORMAL) E.U./dL (NORMAL) 01/24/18 06:45 Ur Leukocyte Esterase NEGATIVE (NEGATIVE) 01/24/18 06:45 Ur Microscopic Review NOT INDICATED 01/24/18 06:45 Urine Culture Comments NOT INDICATED 01/24/18 06:45 - Procedures Procedures: Procedures CLOSED ENDOSCOPIC BIOPSY OF LARGE INTESTINE (11/26/13) ABX Reporting Has patient been on IV antibiotics over the past 48 hours?: Yes
[2018-01-25] MEDS: predniSONE 10 MG TABLET PO SCH (16:17)
[2018-01-26] MEDS: metroNIDAZOLE 500 MG/100 ML 500 MG/100 ML BAG IV SCH (00:40)
[2018-01-26] MEDS: SODIUM CHLORIDE FLUSH 0.9% 10 ML SYRINGE IVP SCH ×2 (00:43→10:06)
[2018-01-26] MEDS: HYDROmorphone 2 MG/ML VIAL IVP PRN ×3 (00:43→10:12)
[2018-01-26 05:20] LABS: HGB - HEMOGLOBIN 9.7 g/dL (12.0-16.0); LYMPHOCYTES # (AUTO) 1.1 10^3/uL (1.5-3.5); LYMPHOCYTES % (AUTO) 13.4 %; MEAN CORPUSCULAR HEMOGLOBIN 30.1 pg (27.0-31.0); MEAN CORPUSCULAR HGB CONC 34.7 g/dL (32.0-36.0); MEAN CORPUSCULAR VOLUME 86.9 fL (81.0-99.0); MEAN PLATELET VOLUME 6.8 fL (7.9-10.8); MONOCYTES # (AUTO) 0.7 10^3/uL (0.0-1.0); MONOCYTES % (AUTO) 8.2 %; NEUTROPHILS # (AUTO) 6.3 10^3/uL (1.5-6.6); NEUTROPHILS % (AUTO) 78.4 %; PLT - PLATELET COUNT 331 10^3/uL (130-450); RED BLOOD COUNT 3.22 10^6/uL (4.20-5.40); RED CELL DISTRIBUTION WIDTH 12.4 % (12.0-15.0)
[2018-01-26 05:24] LABS: CALCIUM 8.1 mg/dL (8.5-10.3); CREATININE 0.7 mg/dL (0.4-1.0)
[2018-01-26] MEDS: SODIUM CHLORIDE FLUSH 0.9% 10 ML SYRINGE IVP PRN ×2 (06:10→10:13)
[2018-01-26] MEDS: ONDANSETRON 4 MG/2 ML VIAL IVP PRN (06:10)
[2018-01-26] MEDS: HYOSCYAMINE SL 0.125 MG TABLET SL SCH ×2 (06:21→11:25)
[2018-01-26] MEDS: HYDROCORTISONE SUCCINATE 100 MG/2 ML VIAL IVP SCH (06:21)
[2018-01-26] MEDS: PANTOPRAZOLE 40 MG VIAL IVP SCH (06:22)
[2018-01-26] MEDS: CIPROFLOXACIN 400 MG/200 ML 200 ML IV SCH (09:53)
[2018-01-26] MEDS: LACTOB/S.THERMOPHL/BIFIDO CAPSULE PO SCH (10:01)
[2018-01-26] MEDS: FOLIC ACID 1 MG TABLET PO SCH (10:01)
[2018-01-26] MEDS: OMEGA-3 ACID ETHYL ESTERS 1 GM CAPSULE PO SCH (10:02)
[2018-01-26] MEDS: predniSONE 10 MG TABLET PO SCH (10:02)
[2018-01-26] MEDS: POLYETHYLENE GLYCOL 3350 17 GM PACKET PO SCH (10:02)
--- NOTE | 2018-01-26 10:50 | Discharge Plan ---
Discharge Plan Disposition: Home, Self Care Condition: Fair Prescriptions: Ciprofloxacin [Cipro] 500 mg PO Q12H #28 tablet Hydrocodone/Acetaminophen [Vicodin 5-300 mg Tablet] 1 each PO Q4H PRN #28 tablet PRN Reason: Severe Pain Hyoscyamine [Levsin] 0.125 mg SL AC #30 tablet Metronidazole [Flagyl] 500 mg PO TID #21 tablet Saccharomyces Boulardii [Florastor] 250 mg PO BID #14 capsule Diet: Regular Activity Restrictions: Activity as Tolerated Shower Restrictions: No Driving Restrictions: No Additional Instructions or Follow Up instructions: Resume all your pre-hospital medications. Stay on a easily-digestible diet til the symptoms of your Crohn's flare-up have resolved. Get further recommendations from your GI specialist. Take the new pain medications ordered as needed. Refills should come from your PCP or GI specialist. Take the 2 antibiotics until they are finished. Also there is a prescription for restoring bowel health with Florastor to take until done. Stay off work until 01/29/18 and then OK to work half days for 1 week. Return to the ER for new or worsening symptoms. No Smoking: If you smoke, Please STOP! Call for help.
[2018-01-26 11:26] VITALS: BP 113/70
[2018-01-26 16:32] LABS: HEPATITIS B SURFACE ANTIGEN NON-REACTIVE (NON-REACTIVE); HEPATITIS C ANTIBODY NON-REACTIVE (NON-REACTIVE)
[2018-01-26 16:56] LABS: HEPATITIS B CORE AB TOTAL NON-REACTIVE (NON-REACTIVE)
[2018-01-27 14:51] LABS: HCV RNA QNT <1.18 NOT DETECTED Log IU/mL (NOT DETECTED); HCV RNA QUANT RT PCR <15 NOT DETECTED IU/mL (NOT DETECTED)
[2018-01-28 14:31] LABS: HEPATITIS BE ANTIGEN NONREACTIVE
[2018-01-30 08:27] LABS: HEPATITIS C VIRAL RNA GENOTYPE NOT DETECTED
--- NOTE | 2018-02-04 17:27 | DISCHARGE SUMMARY ---
Physician: Carmen Angel MD DATE OF ADMISSION: 01/24/2018 DATE OF DISCHARGE: 01/26/2018 HISTORY OF PRESENT ILLNESS: This is a 32-year-old white female with history of Crohn disease, has been on Lialda and oral prednisone and recently underwent a flexible sigmoidoscopy [address] of the abdomen and pelvis approximately 2 weeks ago. These showed colitis. The patient presented with a 1-month history of worsening abdominal pain and chronic bloody diarrhea. She was admitted for management of exacerbation of Crohn's disease. HOSPITAL COURSE AND DISCHARGE DIAGNOSES 1. Exacerbation of Crohn disease. The patient was placed on IV steroids, IV Flagyl, and IV Cipro and had bowel rest, was kept npo and had iv hydration. Eventually, her diet was advanced as tolerated. She was in contact with her Manager Books on her own. The GI doctor requested that a hepatitis screen be sent in order to evaluate her for starting Humira after discharge. The results of the hepatitis screen are still pending. The patient was discharged with several more days of antibiotics and able to tolerate a soft diet. 2. Abdominal pain. Her abdominal pain resolved with management of the Crohn disease and bowel rest. She did not have any repeat imaging or scoping because they had just recently been done. 3. Anemia - iron deficiency secondary to chronic blood loss. The patient's admission hemoglobin was 12.6, this was down to 9.7 at the time of discharge. Further work up and management as an outpatient are advised. LABORATORY AND IMAGING: Reviewed and summarized above. ALLERGIES 1. LATEX. 2. SULFA. MEDICATIONS AT TIME OF DISCHARGE 1. Lialda 2.5 mg p.o. b.i.d. 2. Prednisone 30 mg daily. 3. Cipro 500 mg b.i.d. for 6 more days. 4. Vicodin p.r.n. pain. 5. Hyoscyamine 0.125 mg before meals. 6. Flagyl 500 mg t.i.d. for 7 more days. 7. Florastor 250 b.i.d. for 7 more days. CONDITION AT DISCHARGE: Stable. PHYSICAL EXAMINATION VITAL SIGNS: Blood pressure 113/70, pulse of 62, sinus rhythm, afebrile, room air saturation 98%. HEENT: Unremarkable. NECK: Without JVD or carotid bruits. CHEST: Clear. HEART: Sounds normal. ABDOMEN: Soft, nontender. No guarding or rebound. No masses. Normal bowel sounds. EXTREMITIES: No edema. NEUROLOGIC: Intact. FOLLOWUP: With her PCP and clinical research administrator in the next 1-2 weeks. Further management of Crohn disease by her Manager Books with Jitendra as planned, according to the patient. CODE STATUS: FULL CODE. Time required to complete this entire discharge, dictation, chart review, prescription orders: 30 minutes. cc: MANINDER [facility] TD: 02/04/2018 13:39 MTDD
== END 2018-01-26 11:30 | disposition home or self-care (01) | DRG 387 ==
LOC: ED 21:25 → MS3 01-24 00:36
PROVIDERS: ADMIT Internal Medicine; ATTEND Internal Medicine
DX: K50.111 Crohn's disease of large intestine with rectal bleeding (principal); D50.0 Iron deficiency anemia secondary to blood loss (chronic); Z79.1 Long term (current) use of non-steroidal anti-inflammatories (NSAID); Z79.52 Long term (current) use of systemic steroids
CPT/HCPCS: 36415; 80048; 80053; 81001; 81003; 83605; 83690; 85025; 86317; 86704; 86707; 86803; 87040; 87086; 87340; 87350; 87522; 87902; 96365; 96375; 99283; 99284

== ENCOUNTER 2018-02-21 16:35 | Emergency (ER) | payer OTHER ==
[2018-02-21] MEDS ORDERED: IOPAMIDOL-300 100 ML VIAL IVP ONE ×2 (16:36→20:00)
[2018-02-21] MEDS ORDERED: ACETAMINOPHEN 325 MG TABLET PO STA (18:01)
--- NOTE | 2018-02-21 18:03 | ED Physician Documentation ---
PD HPI CHEST PAIN - Stated complaint Stated Complaint: CP - Chief complaint Chief Complaint: Cardiac - History obtained from History obtained from: Patient - History of Present Illness Timing - onset: Today (33-year-old woman with history of ulcerative colitis on Humira with recent admission for flare presents with sharp non-radiating left upper chest pain that started around 10 AM today and is worse with motion. She is not short of breath. She does have some chronic pedal edema which is unchanged.) Review of Systems Constitutional: denies: Fever, Chills Cardiac: reports: Chest pain / pressure. denies: Palpitations Respiratory: denies: Dyspnea, Cough GI: reports: Abdominal Pain (chornic), Diarrhea (chronic, bloody) PD PAST MEDICAL HISTORY - Past Medical History Cardiovascular: None Respiratory: None Neuro: None Endocrine/Autoimmune: None GI: Cholelithiasis, Crohn's disease : None HEENT: None Psych: None Musculoskeletal: None Derm: None - Past Surgical History Past Surgical History: No - Present Medications Home Medications: Ambulatory Orders Medication Instructions Recorded Confirmed Adalimumab [Humira] 10 mg SQ 02/21/18 Ferrous Sulfate 5 ml PO BID #300 ml 02/21/18 - Allergies Allergies/Adverse Reactions: Allergies Allergy/AdvReac Type Severity Reaction Status Date / Time latex Allergy Intermediate Itching Verified 01/08/18 02:53 Sulfa (Sulfonamide Allergy Unknown Verified 02/21/18 16:42 Antibiotics) - Social History Does the pt smoke?: No Smoking Status: Never smoker Does the pt drink ETOH?: No Does the pt have substance abuse?: No - Immunizations Immunizations are current?: Yes - POLST Patient has POLST: No POLST Status: Full Code PD ED PE NORMAL - Vitals Vital signs reviewed: Yes - General General: Alert and oriented X 3, No acute distress - Neck Neck: Supple, no meningeal sign, No bony TTP - Cardiac Cardiac: RRR, No murmur, Other (NTTP Chest) - Respiratory Respiratory: No respiratory distress, Clear bilaterally - Abdomen Abdomen: Non tender - Extremities Extremities: No edema, No calf tenderness / cord - Neuro Neuro: Alert and oriented X 3, Normal speech Results - Vitals Vitals: Vital Signs - 24 hr 02/21/18 02/21/18 16:40 17:46 Temperature 37.2 C Heart Rate 92 81 Respiratory 20 16 Rate Blood Pressure 110/80 110/77 O2 Saturation 100 100 Oxygen O2 Source Room air - EKG (time done) 1644 Rate: Rate (enter#) (90) Rhythm: NSR [place]: Normal Intervals: Normal OR QRS: Normal Ischemia: Normal ST segments Computer interpretation: Agree with computer - Rads (name of study) CT Angio chestr Radiology: EMP read contemporaneously (Incidental cholelithiasis, no PE) PD MEDICAL DECISION MAKING - ED course ED course: 33-year-old woman with chest pain today, fairly atypical but concerning as she had a recent hospitalization And chronic disease which increase her risks for PE. This was worked up and there is no evidence of this. - Sepsis Event Vital Signs: Vital Signs - 24 hr 02/21/18 02/21/18 16:40 17:46 Temperature 37.2 C Heart Rate 92 81 Respiratory 20 16 Rate Blood Pressure 110/80 110/77 O2 Saturation 100 100 Oxygen O2 Source Room air Departure - Departure Disposition: 01 Home, Self Care Clinical Impression: Chest pain Qualifiers: Chest pain type: chest pain on breathing Qualified Code(s): R07.1 - Chest pain on breathing Anemia Qualifiers: Anemia type: iron deficiency Iron deficiency anemia type: chronic blood loss Qu alified Code(s): D50.0 - Iron deficiency anemia secondary to blood loss (chronic) Condition: Good Record reviewed to determine appropriate education?: Yes Instructions: ED Chest Pain Atypical Unkn Cause Prescriptions: Ferrous Sulfate 5 ml PO BID #300 ml Comments: Call your doctor to arrange a follow-up appointment, make the next available appointment. In the interim, return anytime if worse or if new symptoms develop.
[2018-02-21] MEDS ORDERED: IOPAMIDOL-300 100 ML VIAL ONE (18:09)
[2018-02-21 18:42] LABS: BASOPHILS % (AUTO) 0.4 %; EOSINOPHILS # (AUTO) 0.2 10^3/uL (0.0-0.7); EOSINOPHILS % (AUTO) 2.3 %; HGB - HEMOGLOBIN 8.4 g/dL (12.0-16.0); LYMPHOCYTES # (AUTO) 3.1 10^3/uL (1.5-3.5); LYMPHOCYTES % (AUTO) 39.6 %; MEAN CORPUSCULAR HEMOGLOBIN 27.4 pg (27.0-31.0); MEAN CORPUSCULAR HGB CONC 33.8 g/dL (32.0-36.0); MEAN CORPUSCULAR VOLUME 81.1 fL (81.0-99.0); MEAN PLATELET VOLUME 6.4 fL (7.9-10.8); MONOCYTES # (AUTO) 0.6 10^3/uL (0.0-1.0); MONOCYTES % (AUTO) 8.1 %; NEUTROPHILS # (AUTO) 3.9 10^3/uL (1.5-6.6); NEUTROPHILS % (AUTO) 49.6 %; PLT - PLATELET COUNT 435 10^3/uL (130-450); RED BLOOD COUNT 3.07 10^6/uL (4.20-5.40); RED CELL DISTRIBUTION WIDTH 14.4 % (12.0-15.0); WHITE BLOOD COUNT 7.9 x10^3/uL (4.8-10.8)
[2018-02-21 19:14] LABS: ALBUMIN 3.1 g/dL (3.2-5.5); ALBUMIN/GLOBULIN RATIO 0.8 (1.0-2.2); BILIRUBIN,TOTAL 0.4 mg/dL (0.2-1.0); CREATININE 0.7 mg/dL (0.4-1.0); TOTAL PROTEIN 6.9 g/dL (6.7-8.2)
--- NOTE | 2018-02-21 20:15 | CT Report ---
Reason: Chest Pain with recent hospitalization Procedure Date: 02/21/2018 Accession Number: [id number] / [id number] Procedure: CT - Chest Angio (PE) CPT Code: FULL RESULT: EXAM: CT ANGIOGRAM CHEST EXAM DATE: 02/21/2018 08:02 PM. CLINICAL HISTORY: Chest Pain with recent hospitalization. COMPARISON: None. TECHNIQUE: Routine helical imaging was performed through the chest in the pulmonary arterial phase. IV Contrast: 80 mL Isovue-300. Reconstructions: Coronal 3-D MIP reconstructions.Sagittal and coronal. In accordance with CT protocol optimization, one or more of the following dose reduction techniques were utilized for this exam: automated exposure control, adjustment of mA and/or KV based on patient size, or use of iterative reconstructive technique. FINDINGS: Pulmonary Arteries: Diagnostic quality: Adequate through the segmental arteries. No evidence for acute or chronic pulmonary emboli. RV/LV is within normal limits. There is no interventricular septal bowing. There is no reflux of contrast material in the IVC. Lungs/Pleura: No consolidation, nodules, or edema. No effusions or pneumothorax. Mediastinum: Normal. No cardiac enlargement or adenopathy. Thoracic Aorta: Unremarkable. Upper Abdomen: There were 2 small stones within the gallbladder. The visualized upper abdomen is otherwise unremarkable. Other: None. IMPRESSION: 1. No pulmonary embolism or acute airspace disease. 2. Cholelithiasis. RADIA
[2018-02-21 20:45] VITALS: BP 110/79
== END 2018-02-21 20:45 | disposition home or self-care (01) ==
LOC: ED 16:35
DX: R07.1 Chest pain on breathing (principal); D50.0 Iron deficiency anemia secondary to blood loss (chronic)
CPT/HCPCS: 36415; 71275; 80053; 83690; 84484; 85025; 85379; 93005; 99283; 99284; A9270; Q9967

== ENCOUNTER 2018-03-05 05:19 | Inpatient (IN) | payer OTHER ==
--- NOTE | 2018-03-05 05:40 | ED Physician Documentation ---
PD HPI GI BLEED - Stated complaint Stated Complaint: ANAL BLEED - History obtained from History obtained from: Patient - History of Present Illness Timing - onset: Enter time (01:45), Today Timing - details: Abrupt onset Pain level now: 8 Associated symptoms: BRBPR, Abdominal pain, Fever. No: Vomiting, Coffee ground emesis, Hematemesis Improved by: Other (nothing) Worsened by: Palpation Similar symptoms before: Diagnosis (crohn's disease) Recently seen: Emergency Dept (earlier this month, T+R from this ED for CP) - Additional information Additional information: "I'm a Crohn's and colitis patient", "in the middle of a flare-up". Patient's chief concern is sudden worsening of BRBPR since 1:45 AM this morning. She says she's had mild BRBPR for 2 months but this morning at 1:45 am, there was a sudden, significant increase in the amount of bleeding, associated with lightheadedness. She has pain across lower abdomen, although this is also waxing and waning for nearly 2 months. Review of Systems Constitutional: reports: Fever (101 yesterday (although she says she has been running fevers around 101 for several weeks)), Chills, Sweats Eyes: reports: Reviewed and negative Ears: reports: Reviewed and negative Nose: reports: Reviewed and negative Throat: reports: Reviewed and negative Cardiac: reports: Reviewed and negative Respiratory: reports: Reviewed and negative GI: reports: Abdominal Pain, Bloody / black stool. denies: Vomiting, Constipation, Diarrhea : denies: Dysuria, Frequency Skin: reports: Reviewed and negative Musculoskeletal: reports: Reviewed and negative Neurologic: reports: Reviewed and negative PD PAST MEDICAL HISTORY - Past Medical History Past Medical History: Yes Cardiovascular: None Respiratory: None Neuro: None Endocrine/Autoimmune: None GI: Cholelithiasis, Crohn's disease : None HEENT: None Psych: None Musculoskeletal: None Derm: None - Past Surgical History Past Surgical History: No - Present Medications Home Medications: Ambulatory Orders Medication Instructions Recorded Confirmed Adalimumab [Humira] 40 mg SQ Q14D 03/05/18 03/05/18 Mesalamine [Lialda] 1.2 gm PO QID 03/05/18 03/05/18 - Allergies Allergies/Adverse Reactions: Allergies Allergy/AdvReac Type Severity Reaction Status Date / Time latex Allergy Intermediate Itching Verified 03/05/18 05:26 Sulfa (Sulfonamide Allergy Unknown Verified 03/05/18 05:26 Antibiotics) - Social History Does the pt smoke?: No Smoking Status: Never smoker Does the pt drink ETOH?: No Does the pt have substance abuse?: No - Immunizations Immunizations are current?: Yes - POLST Patient has POLST: No POLST Status: Full Code PD ED PE NORMAL - Vitals Vital signs reviewed: Yes - General General: Alert and oriented X 3, Well developed/nourished, Other (appears uncomfortable) - HEENT HEENT: Moist mucous membranes - Neck Neck: Supple, no meningeal sign - Cardiac Cardiac: No murmur - Respiratory Respiratory: No respiratory distress, Clear bilaterally - Abdomen Abdomen: Soft, Non distended, Other (mild TTP across lower abdomen and periumbilicus without rebound) - Back Back: No CVA TTP - Derm Derm: Normal color, Warm and dry PD ED PE EXPANDED - Cardiac Cardiac: Tachy, Regular Rhythm - Rectal Rectal: Heme Occult Pos - QC +, Clerical Support Specialist present. No: Mass, Hemorrhoid, Fissure Results - Vitals Vitals: Vital Signs - 24 hr 03/05/18 03/05/18 03/05/18 05:22 06:34 07:33 Temperature 36.9 C Heart Rate 118 H 93 70 Respiratory 18 20 18 Rate Blood Pressure 99/72 97/65 95/63 O2 Saturation 100 100 99 03/05/18 03/05/18 03/05/18 07:35 08:00 08:05 Temperature 37.2 C 37.2 C Heart Rate 88 75 Respiratory 16 15 Rate Blood Pressure 109/72 105/72 O2 Saturation Oxygen O2 Source Room air - Labs Labs: Laboratory Tests 03/05/18 03/05/18 03/05/18 05:35 05:35 05:35 WBC 8.4 RBC 3.00 L Hgb 8.1 L Hct 23.1 L MCV 77.0 L MCH 27.0 MCHC 35.0 RDW 16.1 H Plt Count 519 H MPV 6.2 L Neut # (Auto) 4.8 Lymph # (Auto) 2.3 [place] # (Auto) 1.0 Eos # (Auto) 0.2 Baso # (Auto) 0.0 Absolute Nucleated RBC 0.01 Nucleated RBC % 0.1 ESR 92 H Sodium 136 Potassium 3.8 Chloride 99 L Carbon Dioxide 28 Anion Gap 9.0 BUN 6 Creatinine 0.8 Estimated GFR (MDRD) 84 L Glucose 125 H Calcium 8.6 Phosphorus Magnesium Total Bilirubin < 0.2 L AST 18 ALT 12 Alkaline Phosphatase 61 Total Protein 6.4 L Albumin 2.4 L Globulin 4.0 Albumin/Globulin Ratio 0.6 L Lipase 21 L Blood Type Antibody Screen Crossmatch IS Only 03/05/18 03/05/18 03/05/18 05:35 05:35 05:35 WBC RBC Hgb Hct MCV MCH MCHC RDW Plt Count MPV Neut # (Auto) Lymph # (Auto) [place] # (Auto) Eos # (Auto) Baso # (Auto) Absolute Nucleated RBC Nucleated RBC % ESR Sodium Potassium Chloride Carbon Dioxide Anion Gap BUN Creatinine Estimated GFR (MDRD) Glucose Calcium Phosphorus 3.0 Magnesium 2.2 Total Bilirubin AST ALT Alkaline Phosphatase Total Protein Albumin Globulin Albumin/Globulin Ratio Lipase Blood Type A NEGATIVE Cancelled Antibody Screen NEGATIVE Cancelled Crossmatch IS Only See Detail - Rads (name of study) CT A/P Radiology: Prelim report reviewed, See rad report PD MEDICAL DECISION MAKING - ED course Complexity details: reviewed old records, reviewed results, re-evaluated patient, considered differential, d/w patient Departure - Departure Disposition: 66 [facility] DC/Xfer Clinical Impression: Exacerbation of Crohn's disease Condition: Stable Discharge Date/Time: 03/05/18 09:42
[2018-03-05 05:49] LABS: BASOPHILS % (AUTO) 0.5 %; EOSINOPHILS # (AUTO) 0.2 10^3/uL (0.0-0.7); EOSINOPHILS % (AUTO) 2.3 %; HGB - HEMOGLOBIN 8.1 g/dL (12.0-16.0); LYMPHOCYTES # (AUTO) 2.3 10^3/uL (1.5-3.5); MEAN PLATELET VOLUME 6.2 fL (7.9-10.8); MONOCYTES % (AUTO) 11.5 %; NEUTROPHILS # (AUTO) 4.8 10^3/uL (1.5-6.6); NEUTROPHILS % (AUTO) 57.7 %; PLT - PLATELET COUNT 519 10^3/uL (130-450); RED CELL DISTRIBUTION WIDTH 16.1 % (12.0-15.0); WHITE BLOOD COUNT 8.4 x10^3/uL (4.8-10.8)
[2018-03-05] MEDS ORDERED: ACETAMINOPHEN 1,000 MG/100 ML 100 ML IV STA (05:50)
[2018-03-05 05:57] LABS: ALBUMIN 2.4 g/dL (3.2-5.5); ALBUMIN/GLOBULIN RATIO 0.6 (1.0-2.2); ALKALINE PHOSPHATASE 61 IU/L (42-121); ALT ALANINE AMINOTRANSFERASE 12 IU/L (10-60); AST ASPARTATE AMINOTRANSFERASE 18 IU/L (10-42); BILIRUBIN,TOTAL < 0.2 mg/dL (0.2-1.0); BUN - BLOOD UREA NITROGEN 6 mg/dL (6-20); CALCIUM 8.6 mg/dL (8.5-10.3); CARBON DIOXIDE - CO2 28 mmol/L (21-32); CHLORIDE 99 mmol/L (101-111); CREATININE 0.8 mg/dL (0.4-1.0); GFR - MDRD 84 (>89); GLUCOSE 125 mg/dL (70-100); LIPASE 21 U/L (22-51); SODIUM 136 mmol/L (135-145); TOTAL PROTEIN 6.4 g/dL (6.7-8.2)
[2018-03-05] MEDS ORDERED: IOPAMIDOL-300 100 ML VIAL ONE (06:11)
[2018-03-05] MEDS ORDERED: ONDANSETRON 4 MG/2 ML VIAL IVP STA (06:47)
[2018-03-05] MEDS ORDERED: IOPAMIDOL-300 100 ML VIAL IVP ONE (07:00)
--- NOTE | 2018-03-05 07:34 | CT Report ---
Reason: abd. pain, rectal bleeding Procedure Date: 03/05/2018 Accession Number: [id number] / [id number] Procedure: CT - Abdomen/Pelvis W/ CPT Code: FULL RESULT: EXAM: CT ABDOMEN AND PELVIS EXAM DATE: 03/05/2018 07:04 AM. CLINICAL HISTORY: Abd. pain, rectal bleeding. COMPARISONS: 01/08/2018. TECHNIQUE: Routine helical CT imaging was performed through the abdomen and pelvis. IV contrast: ISOVUE 300 100mL. Enteric contrast: No. Reconstructions: Coronal and sagittal. In accordance with CT protocol optimization, one or more of the following dose reduction techniques were utilized for this exam: automated exposure control, adjustment of mA and/or KV based on patient size, or use of iterative reconstructive technique. FINDINGS: Lung Bases: Unremarkable. Liver: Small cysts Gallbladder/Bile Ducts: Cholelithiasis Spleen: Normal. Pancreas: Normal. Adrenal Glands: Normal. Kidneys: Both kidneys are mildly heterogeneous bilateral upper poles and in the right lower pole. Peritoneal Cavity/Bowel: Wall thickening in the transverse colon, descending colon and sigmoid colon with pericolonic prominent vessels. Small less than 1 cm retroperitoneal lymph nodes. Trace free fluid in the pelvis. Right lower quadrant calcification appears to be with in small bowel Pelvic Organs: IUD in uterus The bladder and visualized pelvic organs are within normal limits. Vasculature: No aneurysms or other significant abnormality. Bones: No significant abnormality. Other: None. IMPRESSION: 1. Wall thickening in the transverse, descending and sigmoid colon. This could be infectious, inflammatory, inflammatory bowel disease. 2. Cholelithiasis. 3. Kidneys are mildly heterogeneous especially upper poles without definite mass. Is there any evidence for infection? 2. Cholelithiasis. RADIA
[2018-03-05] MEDS ORDERED: methylPREDNISolone SUCCINATE 125 MG/2 ML VIAL IVP STA (07:58)
[2018-03-05] MEDS ORDERED: metroNIDAZOLE 500 MG/100 ML 500 MG/100 ML BAG IV ONE (07:58)
[2018-03-05] MEDS ORDERED: CIPROFLOXACIN 400 MG/200 ML 200 ML IV STA (07:58)
[2018-03-05] MEDS ORDERED: PROCHLORPERAZINE 10 MG/2 ML VIAL IVP PRN (08:47)
[2018-03-05] MEDS ORDERED: TEMAZEPAM 15 MG CAPSULE PO PRN (08:47)
[2018-03-05] MEDS ORDERED: CIPROFLOXACIN 400 MG/200 ML 200 ML IV SCH ×2 (09:00→20:00)
[2018-03-05] MEDS: HYDROmorphone 1 MG/ML CARPUJECT IVP PRN ×3 (09:01→19:59)
[2018-03-05 09:24] LABS: MAGNESIUM 2.2 mg/dL (1.7-2.8)
[2018-03-05] MEDS ORDERED: SODIUM CHLORIDE FLUSH 0.9% 10 ML SYRINGE ONE (09:52)
[2018-03-05] MEDS ORDERED: diphenhydrAMINE INJ 50 MG/ML VIAL IVP PRN (10:56)
[2018-03-05] MEDS: POLYETHYLENE GLYCOL 3350 17 GM PACKET PO SCH (11:05)
[2018-03-05] MEDS: SODIUM CHLORIDE FLUSH 0.9% 10 ML SYRINGE IVP SCH ×2 (11:05→16:18)
[2018-03-05] MEDS: D5NS W/20 MEQ KCL 1,000 ML IV SCH (11:05)
[2018-03-05] MEDS: FAMOTIDINE 20 MG/50 ML 50 ML IV SCH ×2 (13:22→22:19)
[2018-03-05] MEDS ORDERED: ACETAMINOPHEN 1,000 MG/100 ML 100 ML IV PRN (14:00)
[2018-03-05] MEDS: methylPREDNISolone SUCCINATE 125 MG/2 ML VIAL IVP SCH ×2 (14:25→22:20)
[2018-03-05] MEDS ORDERED: SODIUM CHLORIDE 0.9% 1,000 ML IV ONE (14:38)
[2018-03-05 16:43] LABS: BILIRUBIN,URINE NEGATIVE (NEGATIVE); GLUCOSE, URINE (UA) NEGATIVE (NEGATIVE); KETONES,URINE (UA) NEGATIVE (NEGATIVE); LEUKOCYTE ESTERASE, URINE NEGATIVE (NEGATIVE); NITRITE,URINE NEGATIVE (NEGATIVE); OCCULT BLOOD,URINE NEGATIVE (NEGATIVE); PH,URINE 7.5 PH (5.0-7.5); PROTEIN,URINE NEGATIVE (NEGATIVE); UROBILINOGEN,URINE 0.2 (NORMAL) E.U./dL (NORMAL)
[2018-03-05 16:47] LABS: CLARITY,URINE CLEAR (CLEAR); HCG UR QUAL NEGATIVE
[2018-03-05] MEDS: metroNIDAZOLE 500 MG/100 ML 500 MG/100 ML BAG IV SCH (17:15)
[2018-03-05] MEDS: LACTOB/S.THERMOPHL/BIFIDO CAPSULE PO SCH (17:15)
[2018-03-05] MEDS: SODIUM CHLORIDE FLUSH 0.9% 10 ML SYRINGE IVP PRN ×2 (19:59→22:20)
[2018-03-05] MEDS ORDERED: diphenhydrAMINE INJ 50 MG/ML VIAL IVP STA (20:30)
[2018-03-05] MEDS ORDERED: FERROUS SULFATE 300 MG/5 ML UDC PO SCH (21:00)
[2018-03-05] MEDS: cefTRIAXone 2 GM in SODIUM CHLORIDE 0.9% MINIBAG 100 ML IV SCH (21:04)
[2018-03-06] MEDS: metroNIDAZOLE 500 MG/100 ML 500 MG/100 ML BAG IV SCH ×2 (01:09→08:24)
[2018-03-06] MEDS: SODIUM CHLORIDE FLUSH 0.9% 10 ML SYRINGE IVP SCH ×4 (01:11→16:51)
[2018-03-06] MEDS: D5NS W/20 MEQ KCL 1,000 ML IV SCH ×2 (02:34→16:51)
[2018-03-06] MEDS: HYDROmorphone 1 MG/ML CARPUJECT IVP PRN ×3 (02:43→19:22)
[2018-03-06 05:48] LABS: BASOPHILS % (AUTO) 0.2 %; HGB - HEMOGLOBIN 8.7 g/dL (12.0-16.0); LYMPHOCYTES # (AUTO) 1.3 10^3/uL (1.5-3.5); LYMPHOCYTES % (AUTO) 9.9 %; MEAN CORPUSCULAR HEMOGLOBIN 26.5 pg (27.0-31.0); MEAN CORPUSCULAR HGB CONC 33.5 g/dL (32.0-36.0); MEAN PLATELET VOLUME 6.4 fL (7.9-10.8); MONOCYTES # (AUTO) 0.4 10^3/uL (0.0-1.0); MONOCYTES % (AUTO) 3.3 %; NEUTROPHILS % (AUTO) 86.6 %; PLT - PLATELET COUNT 506 10^3/uL (130-450); RED CELL DISTRIBUTION WIDTH 16.1 % (12.0-15.0); WHITE BLOOD COUNT 12.7 x10^3/uL (4.8-10.8)
[2018-03-06 05:58] LABS: CALCIUM 8.3 mg/dL (8.5-10.3); CREATININE 0.5 mg/dL (0.4-1.0); MAGNESIUM 2.1 mg/dL (1.7-2.8); PHOSPHORUS 2.6 mg/dL (2.5-4.6)
[2018-03-06] MEDS: SODIUM CHLORIDE FLUSH 0.9% 10 ML SYRINGE IVP PRN (05:58)
[2018-03-06] MEDS: methylPREDNISolone SUCCINATE 125 MG/2 ML VIAL IVP SCH ×2 (06:06→13:44)
[2018-03-06] MEDS: LACTOB/S.THERMOPHL/BIFIDO CAPSULE PO SCH ×2 (08:22→16:51)
[2018-03-06] MEDS: POLYETHYLENE GLYCOL 3350 17 GM PACKET PO SCH (08:25)
--- NOTE | 2018-03-06 09:16 | HISTORY & PHYSICAL EXAMINATION ---
DATE OF SERVICE: 03/05/2018 Physician: Carmen Angel MD HISTORY OF PRESENT ILLNESS: This is a 33-year-old white female with recently diagnosed Crohn's disease this year. She has had chronic abdominal symptoms since she was diagnosed which includes blood in her stool frequently, cramping abdominal pain. She was admitted here for Crohn's flare-up in January. There were lab tests done for hepatitis. Following that admission, she was started on Humira and is followed by a kiln door repairer at [facility]. She also has iron deficiency anemia and was started on pill form and liquid form of iron, but states she does not tolerate these and has gotten IV iron in the past. The patient presents with a large bright red blood bowel movement per rectum and became lightheaded. She came to the emergency room and was found to have anemia, elevated sed rate and findings consistent with a Crohn's flare-up and being admitted for this. She denies any nausea or vomiting. She has been on a bland diet, but takes in solid foods despite the intermittent bloody and mucousy diarrhea. The patient requests that we contact her Site Planner and that she also be transferred either under his care or to a hospital with Gastroenterologists for a higher level of care. ALLERGIES 1. LATEX. 2. SULFA. MEDICATIONS: Humira and possibly liquid iron, but she states she does not take this. PAST MEDICAL HISTORY: Crohn's disease. FAMILY HISTORY: No inherited diseases. SOCIAL HISTORY: She is a nonsmoker, drinks rare alcohol, uses no illicit drugs. 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 REVIEW OF SYSTEMS: A comprehensive review of systems was performed and the pertinent positives are in the HPI, the rest are negative. PHYSICAL EXAMINATION GENERAL: This is a white female who appears fatigued. VITAL SIGNS: Blood pressure 99/72, pulse 118 in sinus tachycardia, afebrile, room air saturation 100%. HEENT: Reveals dry oral mucosa, sunken eyes. NECK: Without JVD. LUNGS: Clear. HEART: Normal heart sounds. ABDOMEN: Nontender. Hyperactive bowel sounds. No organomegaly. No guarding or rebound. EXTREMITIES: No clubbing, cyanosis, or edema. NEUROLOGIC: Intact. LABORATORY DATA: Sodium 136, potassium 3.8, BUN 6, creatinine 0.8, magnesium 2.2, bilirubin not detectable. Normal liver tests. Albumin 2.4, lipase normal. White blood count 8.4, hemoglobin 8.1 with an MCV of 77, RDW of 16, and platelet count of 519. Urinalysis could not be obtained, even after an iv saline fluid bolus was given. IMAGING: She had an abdomen and pelvis CT that showed evidence of colitis of the transverse, descending, and sigmoid colon, gallstones are seen. There is trace of free fluid in the pelvis. She has a very small retroperitoneal lymph node and right lower quadrant calcifications in the small bowel. Her kidneys are mildly heterogenous especially the upper poles bilaterally and infection should be considered according to the radiology reading. IMPRESSION/DIAGNOSES 1. Crohn's disease with flare up. 2. Colitis. 3. Gastrointestinal blood loss anemia. 4. Lightheadedness. 5. Pyelonephritis. PLAN: Admit the patient to telemetry. Begin crystalloid fluid replacement and finish a blood transfusion which was started in the emergency room for alma symptomatic anemia. Begin the patient on IV Cipro and Flagyl for the colitis as well as IV steroids: 125 mg IV t.i.d. of Solu-Medrol. Change her diet to a full liquid diet for bowel rest, advance as tolerated. Follow her I's and O's and daily weights, daily BMP and q.12 h. CBC. Reach out to her Site Planner to discuss her management and possible transfer under his care. Obtain a urinalysis and urine culture. The Cipro would be effective for usual urinary tract infection bacteria. DEEP VENOUS THROMBOSIS PROPHYLAXIS: SCDs. CODE STATUS: FULL CODE. ATTESTATION: The patient is expected to be discharged or transferred to another facility within 96 hours: Yes. TD: 03/06/2018 09:02 ROLANDO
[2018-03-06] MEDS: FAMOTIDINE 20 MG/50 ML 50 ML IV SCH ×2 (09:41→21:14)
[2018-03-06] MEDS: cefTRIAXone 2 GM in SODIUM CHLORIDE 0.9% MINIBAG 100 ML IV SCH (11:01)
[2018-03-06] MEDS: VANCOMYCIN 125 MG CAPSULE PO SCH ×3 (16:51→21:14)
--- NOTE | 2018-03-06 18:07 | PROVIDER PROGRESS NOTE ---
Subjective - Prog Note Date Prog Note Date: 03/06/18 Prog Note Time: 18:06 - Subjective Pt reports feeling: Improved (Patient with small amounts of dark maroon colored stools, less voluminous then before) Current Medications - Current Medications Current Medications: Active Medications Diphenhydramine HCl (Benadryl Inj) 25 mg IVP Q6H PRN PRN Reason: Allergy Symptoms Last Admin: 03/05/18 11:05 Dose: 25 mg Hydromorphone HCl (Dilaudid Inj Carp) 1 mg IVP Q2HR PRN PRN Reason: Pain 8 to 10 Last Admin: 03/06/18 14:54 Dose: 1 mg Potassium Chloride/Dextrose/Sod Cl () 1,000 mls @ 80 mls/hr IV .[id number] [facility] Last Admin: 03/06/18 16:51 Dose: 80 mls/hr Famotidine (Pepcid 20 Mg/50 Ml) 50 mls @ 100 mls/hr IV BID [facility] Last Infusion: 03/06/18 11:04 Dose: Infused Acetaminophen (Ofirmev) 100 mls @ 400 mls/hr IV Q6HR PRN PRN Reason: PAIN Ceftriaxone Sodium 2 gm/ (Sodium Chloride) 100 mls @ 200 mls/hr IV DAILY [facility] Last Infusion: 03/06/18 11:37 Dose: Infused Lactobacil/Bifidobact/Streptococcus (Vsl#3) 1 cap PO BIDWM [facility] Last Admin: 03/06/18 16:51 Dose: 1 cap Polyethylene Glycol (Miralax) 17 gm PO DAILY [facility] Last Admin: 03/06/18 08:25 Dose: Not Given Prochlorperazine Edisylate (Compazine Inj) 10 mg IVP Q6HR PRN PRN Reason: Nausea / Vomiting Sodium Chloride (Normal Saline Flush 0.9%) 10 ml IVP PRN PRN PRN Reason: NEEDED PER PROVIDER ORDERS Last Admin: 03/06/18 05:58 Dose: 10 ml Sodium Chloride (Normal Saline Flush 0.9%) 10 ml IVP 0100,0900,1700 [facility] Last Admin: 03/06/18 16:51 Dose: Not Given Temazepam (Restoril) 15 mg PO QPM PRN PRN Reason: Insomnia Vancomycin HCl (Vancocin) 125 mg PO QID [facility] Last Admin: 03/06/18 16:51 Dose: 125 mg Adalimumab [Humira] 40 mg SQ Q14D 03/05/18 Mesalamine [Lialda] 1.2 gm PO QID 03/05/18 Objective - Vital Signs/Intake & Output Vital Signs: Vital Signs x48h Temp Pulse Pulse Resp BP Pulse Ox 03/06/18 16:51 37.1 C 74 12 98/59 L 98 03/06/18 11:15 36.8 C 64 14 100 Intake & Output: Intake & Output 03/03/18 03/04/18 03/05/18 03/06/18 23:59 23:59 23:59 23:59 Intake Total 3748 2682 Output Total 80 Balance 3743 2602 - Objective General Appearance: positive: No acute distress Eyes Bilateral: positive: Normal inspection Neck: positive: Nml inspection Respiratory: positive: Chest non-tender, No respiratory distress, Breath sounds nml Cardiovascular: positive: Regular rate & rhythm, No murmur, No gallop Peripheral Pulses: 2+ Dorsalis pedis (R), 2+ Dorsalis pedis (L) Abdomen: positive: Non-tender, No organomegaly, Nml bowel sounds, No distention, Tenderness (mild LUQ/Epigastric) Skin: positive: Warm, Pallor. negative: Skin rash Extremities: positive: Non-tender, Nml appearance. negative: No pedal edema - Lab Results Fish Bones: 03/06/18 05:35 03/06/18 05:35 Other Labs: Lab Results x24hrs 03/06/18 03/06/18 Range/Units 05:35 05:35 WBC 12.7 H (4.8-10.8) x10^3/uL RBC 3.30 L (4.20-5.40) 10^6/uL Hgb 8.7 L (12.0-16.0) g/dL Hct 26.1 L (37.0-47.0) % MCV 79.0 L (81.0-99.0) fL MCH 26.5 L (27.0-31.0) pg MCHC 33.5 (32.0-36.0) g/dL RDW 16.1 H (12.0-15.0) % Plt Count 506 H (130-450) 10^3/uL MPV 6.4 L (7.9-10.8) fL Neut # (Auto) 11.0 H (1.5-6.6) 10^3/uL Lymph # (Auto) 1.3 L (1.5-3.5) 10^3/uL Cooper # (Auto) 0.4 (0.0-1.0) 10^3/uL Eos # (Auto) 0.0 (0.0-0.7) 10^3/uL Baso # (Auto) 0.0 (0.0-0.1) 10^3/uL Absolute Nucleated RBC 0.01 x10^3/uL Nucleated RBC % 0.0 /100WBC Sodium 133 L (135-145) mmol/L Potassium 4.2 (3.5-5.0) mmol/L Chloride 104 (101-111) mmol/L Carbon Dioxide 24 (21-32) mmol/L Anion Gap 5.0 L (6-13) BUN 8 (6-20) mg/dL Creatinine 0.5 (0.4-1.0) mg/dL Estimated GFR (MDRD) 144 (>89) Glucose 228 H (70-100) mg/dL Calcium 8.3 L (8.5-10.3) mg/dL Phosphorus 2.6 (2.5-4.6) mg/dL Magnesium 2.1 (1.7-2.8) mg/dL - Diagnostic Imaging Diagnostic Imaging Results: positive: Final report reviewed ABX Reporting Has patient been on IV antibiotics over the past 48 hours?: Yes Assessment/Plan - Problem List (1) C. difficile colitis Impression: Patient with high risk factors for opportunistic infections, as she has been through induction tx with Humira, then maintenance dose tx q 2 weeks with last dose on 02/28/[address] Morse who I spoke with on phone. C. diff positive in stools, first occurrence will place on PO vanco 125 mg po QID x 14 days. D/c IV solumedrol as this would likely spread infection, has evidence of abd pain and colitis seen on CT showing diffuse transverse, descending and sigmoid involvement. One would query as this primary cause of her hematochezia with symptoms prompting her hospitalization. (2) Acute blood loss anemia Impression: s/p 1 unit of PRBC, would monitor H/H status. CBC in am. No need to transfer to [facility] as she would perhaps need another transfusion under restrictive transfusion protocol for a non-cardiac patient <7g/dl. Has hx iron def anemia on her previous labs, would anticipate the same as she has lost considerable amount of iron on this admission. IV iron for 3 days and then switched over to PO. (3) Immunosuppressed status Impression: Hx humira induction and maint tx per Dr. Morse who is her primary GI treating physician. Currently not leukopenic in fact leukocytotic sec to steroids, D/c steroids for now. (4) Leukocytosis Impression: secondary to steroids. D/c IV solumedrol Qualifiers: Leukocytosis type: leukemoid reaction Qualified Code(s): D72.823 - Leukemoid reaction (5) Cholelithiases Impression: No evidence of GB thickening or edema. Would follow as outpatient. Qualifiers: Cholelithiasis location: gallbladder Cholecystitis presence: without cholecystitis Biliary obstruction: without biliary obstruction Qualified Code(s): K80.20 - Calculus of gallbladder without cholecystitis without obstruction (6) Exacerbation of Crohn's disease Impression: Still unclear if this is Crohns or UC. IBD per history. Will hold mesalamine, Humira and IV steroids per GI dr Morse who I spoke to over the phone and agreed with paln to treat current c. diff infection with PO vanco for at least 14 days, patient may receive a colonoscopy after 14 day course or resolution of c diff colitis that may be entirely infectious on CT with transverse, descending and sigmoid involvement. Dr Morse is available for further assistance at [phone]. Qualifiers: Digestive disease complication type: with rectal bleeding Qualified Code(s): K50.911 - Crohn's disease, unspecified, with rectal bleeding
[2018-03-07] MEDS: SODIUM CHLORIDE FLUSH 0.9% 10 ML SYRINGE IVP SCH ×2 (01:05→08:26)
[2018-03-07] MEDS: HYDROmorphone 1 MG/ML CARPUJECT IVP PRN ×2 (01:34→08:26)
[2018-03-07] MEDS: D5NS W/20 MEQ KCL 1,000 ML IV SCH (04:55)
[2018-03-07 05:21] LABS: BASOPHILS % (AUTO) 0.2 %; HGB - HEMOGLOBIN 8.7 g/dL (12.0-16.0); LYMPHOCYTES % (AUTO) 12.8 %; MEAN CORPUSCULAR HEMOGLOBIN 25.5 pg (27.0-31.0); MEAN CORPUSCULAR HGB CONC 32.1 g/dL (32.0-36.0); MEAN CORPUSCULAR VOLUME 79.7 fL (81.0-99.0); MEAN PLATELET VOLUME 6.2 fL (7.9-10.8); MONOCYTES % (AUTO) 8.8 %; NEUTROPHILS % (AUTO) 78.2 %; PLT - PLATELET COUNT 571 10^3/uL (130-450); RED BLOOD COUNT 3.42 10^6/uL (4.20-5.40); RED CELL DISTRIBUTION WIDTH 16.5 % (12.0-15.0); WHITE BLOOD COUNT 14.8 x10^3/uL (4.8-10.8)
[2018-03-07 05:26] LABS: ABNORMAL LYMPHS % (MANUAL) 0 %
[2018-03-07 05:40] LABS: CALCIUM 8.4 mg/dL (8.5-10.3); CREATININE 0.6 mg/dL (0.4-1.0); PHOSPHORUS 2.8 mg/dL (2.5-4.6)
[2018-03-07 06:13] LABS: BAND NEUTROPHILS % (MANUAL) 18 %; LYMPHOCYTES # (MANUAL) 2.1 10^3/uL (1.5-3.5); LYMPHOCYTES % (MANUAL) 14 %; MONOCYTES # (MANUAL) 1.2 10^3/uL (0.0-1.0); NEUTROPHILS # (MANUAL) 11.5 10^3/uL (1.5-6.6); NEUTROPHILS % (MANUAL) 60 %; RBC MORPHOLOGY (MULTIPLE) NORMAL APPEARANCE (NORMAL)
[2018-03-07 06:14] LABS: DIFFERENTIAL COMMENT MANUAL DIFFERENTIAL; PLATELET ESTIMATE, MANUAL INCREASED (>450,000) (NORMAL)
[2018-03-07 08:18] VITALS: BP 104/68
[2018-03-07] MEDS ORDERED: oxyCODONE 10 MG/0.5 ML SYRINGE PO PRN (08:36)
[2018-03-07] MEDS ORDERED: IRON SUCROSE 200 MG in SODIUM CHLORIDE 0.9% 100ML 100 ML IV ONE (09:00)
[2018-03-07] MEDS ORDERED: FERROUS SULFATE 300 MG/5 ML UDC PO SCH (09:00)
[2018-03-07] MEDS ORDERED: IRON SUCROSE 100 MG in SODIUM CHLORIDE 0.9% 100ML 100 ML IV SCH (09:00)
[2018-03-07] MEDS: VANCOMYCIN 125 MG CAPSULE PO SCH (09:36)
[2018-03-07] MEDS: LACTOB/S.THERMOPHL/BIFIDO CAPSULE PO SCH (09:37)
[2018-03-07] MEDS: POLYETHYLENE GLYCOL 3350 17 GM PACKET PO SCH (09:38)
--- NOTE | 2018-03-07 11:29 | Discharge Plan ---
Discharge Plan Disposition: Home, Self Care Condition: Stable Prescriptions: Bifidobacterium Infantis [Align] 10.5 mg PO DAILY #30 tab.chew Famotidine [Pepcid AC] 20 mg PO BID 10 Days #40 tablet Ferrous Sulfate 220 mg PO TID #450 ml Oxycodone HCl 20 mg PO Q4H PRN #60 ml PRN Reason: Pain Vancomycin [Vancocin] 125 mg PO QID 14 Days #56 capsule Diet: Regular Activity Restrictions: No Restrictions Weight Bearing: Full Weight Additional Instructions or Follow Up instructions: Patient to f/u with Primary No Smoking: If you smoke, Please STOP! Call for help. Follow-up with: Don Jones DO [Primary Care Provider] -
--- NOTE | 2018-03-07 11:38 | DISCHARGE SUMMARY ---
Discharge Summary Admit Date: 03/05/18 Discharge Date: 03/07/18 Discharging Provider: Dr. Chaney Primary Care Provider: Dr. Jones Code Status: Attempt Resuscitation Condition at Discharge: Stable Discharge Disposition: 01 Home, Self Care - DIAGNOSES Admission Diagnoses: Crohns disease flare with acute GI blood loss anemia, abdominal pain, severe protein and calorie def malnutrition (POA) Discharge Diagnoses with Status of Each Condition: (1) C. difficile colitis; stable Impression: Patient with high risk factors for opportunistic infections, as she has been through induction tx with Humira, then maintenance dose tx q 2 weeks with last dose on 02/28/[address] Morse who I spoke with on phone. C. diff positive in stools, first occurrence will place on PO vanco 125 mg po QID x 14 days. D/c IV solumedrol as this would likely spread infection, has evidence of abd pain and colitis seen on CT showing diffuse transverse, descending and sigmoid involvement. One would query as this primary cause of her hematochezia with symptoms prompting her hospitalization. (2) Acute blood loss anemia Impression: s/p 1 unit of PRBC, would monitor H/H status. Hgb 8.7 on discharge and very minimal hematochezia. Has hx iron def anemia on her previous labs, would anticipate the same as she has lost considerable amount of iron on this admission. IV iron 200 mg IV x 1, then switch to ferrous elixir. (3) Immunosuppressed status Impression: Will holld off humira and mesalamine for now. Hx humira induction and maint tx per Dr. Morse who is her primary GI treating physician. Currently not leukopenic in fact leukocytotic sec to steroids, D/c steroids for now. (4) Leukocytosis Impression: secondary to steroids. IV solumedrol discontinued, wbc downtrended Qualifiers: Leukocytosis type: leukemoid reaction Qualified Code(s): D72.823 - Leukemoid reaction (5) Cholelithiases Impression: No evidence of GB thickening or edema on CT abd/pelvis. Would follow as outpatient. Qualifiers: Cholelithiasis location: gallbladder Cholecystitis presence: without cholecystitis Biliary obstruction: without biliary obstruction Qualified Code(s): K80.20 - Calculus of gallbladder without cholecystitis without obstruction (6) Exacerbation of Crohn's disease Impression: Still unclear if this is Crohns or UC. IBD per history. Will hold mesalamine, Humira and IV steroids per GI dr Morse who I spoke to over the phone and agreed with paln to treat current c. diff infection with PO vanco for at least 14 days, patient may receive a colonoscopy after 14 day course or resolution of c diff colitis that may be entirely infectious on CT with transverse, descending and sigmoid involvement. Dr Morse is available for further assistance at [phone]. Qualifiers: Digestive disease complication type: with rectal bleeding Qualified Code(s): K50.911 - Crohn's disease, unspecified, with rectal bleeding 7. severe protein and calorie def malnutrition (POA). Patient meets criteria of <50% of nutritional intake. Weight loss of 7% in past month. Would advise on increase calorie in protein supplementation with boost cans TID as outpatient. - HPI History of Present Illness: This is a 33 y/o patinet with confirmed IBD and was being seen as outpatient by Dr. Morse her primary GI doctor for "suspected" Crohn's disease. Patient p/w hematochezia with frequency and increase volume of stools with associated abd cramping, LUQ/LLQ and epigastric pain w/ elevted esr, weakness, chills, and poor po intake. CT abd/pelvis showed diffuse colitis with descending, transverse and sigmoid colon, along with cholelithiasis w/o cholecystitis, hgb found to be low at 8 g/dl. Patient was admitted for acute GIB and suspected crohns flare after h umira induction and receiving last dose of maint humira on 02/28. - CONSULTS | PROCEDURES Consultations: Dr Lito BRUCE at [facility] COURSE Hospital Course: Patient was manged medically with ivf's, pain meds, bowel rest, was placed initially on iv cipro/flagyl, and with hx 10-20 BRBPR, Dr. Morse concerned for c. diff for which was positive and would otherwise explain patients decline in status in terms of her colitis. Patient was started on PO vanco 125 mg po qid to be contained for a total of 14 dasy. Iron def anemia had been documented previously as sever. Protein-calorie def MN seen on admission and was addressed, IV venofer 200 mg x1 dose, hgb was 8 and given 1 unit PRBC, with inc to 9 then back to 8.7 g/dl for 2 days did not require additional units or transfer to [facility]. WBC 14.8 uptrended from 12.7 sec to steroids which were discontinued as well as iv cipro/flagyl. Thrombocytosis seen as inflammatory from c. diff colitis. No fevers documented. Rx to be given on manfred perry and PCP to follow in 1-[address] Mores to perform a colonoscopy post-PO vanco 14 day course tx. - ALLERGIES Allergies/Adverse Reactions: Allergies Allergy/AdvReac Type Severity Reaction Status Date / Time latex Allergy Intermediate Itching Verified 03/05/18 05:26 Sulfa (Sulfonamide Allergy Unknown Verified 03/05/18 05:26 Antibiotics) - MEDICATIONS Home Medications: Ambulatory Orders Medication Instructions Recorded Confirmed Bifidobacterium Infantis [Align] 10.5 mg PO DAILY #30 tab.chew 03/07/18 Ferrous Sulfate 220 mg PO TID #450 ml 03/07/18 Oxycodone HCl 20 mg PO Q4H PRN #60 ml 03/07/18 Vancomycin [Vancocin] 125 mg PO QID 14 Days #56 capsule 03/07/18 - PHYSICAL EXAM AT DISCHARGE General Appearance: positive: No acute distress Neck: positive: Nml inspection, No JVD, Trachea midline Respiratory: positive: Chest non-tender, No respiratory distress, Breath sounds nml Cardiovascular: positive: Regular rate & rhythm, No murmur, No gallop Abdomen: positive: Tenderness (LLQ/LUQ/Epigastric ) Rectal: positive: Bloody stool Back: positive: Nml inspection Skin: positive: Color nml, No rash, Warm, Pallor Extremities: positive: Non-tender, Full ROM, Nml appearance Neurologic/Psychiatric: positive: Oriented x3 - LABS Result Diagrams: 03/07/18 05:09 03/07/18 05:09 - DIAGNOSTIC IMAGING Diagnostic Imaging Results: Final report reviewed - FOLLOW UP Follow Up: PCP follow up in 1-2 weeks. Would need to f/u with Dr. Morse after completion of PO Vanco 125 mg po qid x 14 days, in 2-3 weeks. - TIME SPENT Time Spent in Discharge (Minutes): 35
== END 2018-03-07 14:30 | disposition home or self-care (01) | DRG 371 ==
LOC: ED 05:19 → MS3 08:48
PROVIDERS: ADMIT Internal Medicine; ATTEND Family Medicine
DX: A04.72 Enterocolitis due to Clostridium difficile, not specified as recurrent (principal); E43 Unspecified severe protein-calorie malnutrition; D62 Acute posthemorrhagic anemia; K50.111 Crohn's disease of large intestine with rectal bleeding; D72.823 Leukemoid reaction; T38.0X5A Adverse effect of glucocorticoids and synthetic analogues, initial encounter; Y92.230 Patient room in hospital as the place of occurrence of the external cause; K80.20 Calculus of gallbladder without cholecystitis without obstruction; D50.9 Iron deficiency anemia, unspecified; Z68.21 Body mass index [BMI] 21.0-21.9, adult; Z79.899 Other long term (current) drug therapy
CPT/HCPCS: 36415; 36430; 74177; 80048; 80053; 81001; 81003; 81025; 83690; 83735; 84100; 85014; 85018; 85025; 85651; 86850; 86900; 86901; 86920; 87086; 87493; 96365; 96375; 99283; 99284

== ENCOUNTER 2018-05-02 05:10 | Emergency (ER) | payer OTHER ==
[2018-05-02 05:58] LABS: BASOPHILS % (AUTO) 0.4 %; EOSINOPHILS # (AUTO) 0.2 10^3/uL (0.0-0.7); EOSINOPHILS % (AUTO) 2.9 %; HGB - HEMOGLOBIN 8.3 g/dL (12.0-16.0); LYMPHOCYTES # (AUTO) 1.4 10^3/uL (1.5-3.5); LYMPHOCYTES % (AUTO) 22.8 %; MEAN CORPUSCULAR HEMOGLOBIN 23.3 pg (27.0-31.0); MEAN CORPUSCULAR HGB CONC 31.6 g/dL (32.0-36.0); MEAN CORPUSCULAR VOLUME 73.8 fL (81.0-99.0); MEAN PLATELET VOLUME 6.7 fL (7.9-10.8); MONOCYTES # (AUTO) 0.7 10^3/uL (0.0-1.0); MONOCYTES % (AUTO) 11.5 %; NEUTROPHILS # (AUTO) 3.8 10^3/uL (1.5-6.6); NEUTROPHILS % (AUTO) 62.4 %; PLT - PLATELET COUNT 379 10^3/uL (130-450); RED BLOOD COUNT 3.57 10^6/uL (4.20-5.40); RED CELL DISTRIBUTION WIDTH 18.8 % (12.0-15.0)
[2018-05-02 06:10] LABS: ALBUMIN 2.9 g/dL (3.2-5.5); ALBUMIN/GLOBULIN RATIO 0.9 (1.0-2.2); ALKALINE PHOSPHATASE 57 IU/L (42-121); ALT ALANINE AMINOTRANSFERASE < 10 IU/L (10-60); AST ASPARTATE AMINOTRANSFERASE 12 IU/L (10-42); BILIRUBIN,TOTAL 0.3 mg/dL (0.2-1.0); BUN - BLOOD UREA NITROGEN 9 mg/dL (6-20); CALCIUM 8.6 mg/dL (8.5-10.3); CARBON DIOXIDE - CO2 27 mmol/L (21-32); CHLORIDE 101 mmol/L (101-111); CREATININE 0.7 mg/dL (0.4-1.0); GFR - MDRD 98 (>89); GLUCOSE 112 mg/dL (70-100); LIPASE 23 U/L (22-51); SODIUM 137 mmol/L (135-145); TOTAL PROTEIN 6.1 g/dL (6.7-8.2)
--- NOTE | 2018-05-02 06:12 | XRAY Report ---
Reason: chest pain Procedure Date: 05/02/2018 Accession Number: [id number] / [id number] Procedure: XR - Chest 2 View X-Ray CPT Code: 16882 FULL RESULT: EXAM: CHEST RADIOGRAPHY EXAM DATE: 05/02/2018 06:03 AM. CLINICAL HISTORY: Chest pain COMPARISON: CHEST 1 VIEW 06/21/2016 9:47 PM. TECHNIQUE: 2 views. FINDINGS: Lungs/Pleura: No focal opacities evident. No pleural effusion. No pneumothorax. Normal volumes. Mediastinum: Heart and mediastinal contours are unremarkable. Other: None. IMPRESSION: Stable normal appearance of the chest. RADIA
--- NOTE | 2018-05-02 08:40 | ED Physician Documentation ---
PD HPI CHEST PAIN - Stated complaint Stated Complaint: CHEST PAIN - Chief complaint Chief Complaint: Cardiac - History obtained from History obtained from: Patient - History of Present Illness Timing - onset: How many hours ago (8) Timing - onset during: Sleep Timing - details: Abrupt onset, Now resolved, Intermittant Pain level max: 10 Pain level now: 0 Quality: Pressure, Tightness Location: Other (midsternal) Radiation: Other (no) Improved by: Nothing Worsened by: Inspiration, Movement, Palpation Associated symptoms: Cough (a week ago). No: Shortness of air, Diaphoresis, Nausea, Vomiting, Feeling faint / dizzy, General Weakness, Palpitations Similar symptoms before: Has not had sx before Recently seen: Not recently seen - Additional information Additional information: 33-year-old female with history of ulcerative colitis here with complaint of midsternal chest pressure that started at 11 PM without any associated symptoms. Patient stated it is worse when she breathes, moves patient stated she had a cold a week ago. Patient denies any trauma or travel.While in the ER patient had requested the nurse to check her stool for C. difficile. Patient stated she has been having diarrhea for couple of days and she has history of C. difficile and was treated last February. Review of Systems Ten Systems: 10 systems reviewed and negative Constitutional: denies: Fever, Chills Cardiac: reports: Chest pain / pressure. denies: Palpitations, Pedal edema Respiratory: reports: Cough. denies: Dyspnea, Hemoptysis GI: reports: Diarrhea. denies: Abdominal Pain, Nausea Neurologic: denies: Generalized weakness, Syncope PD PAST MEDICAL HISTORY - Past Medical History Past Medical History: Yes Cardiovascular: None Respiratory: None Neuro: None Endocrine/Autoimmune: None GI: Ulcerative colitis, Crohn's disease : None HEENT: None Psych: None Musculoskeletal: None Derm: None - Past Surgical History Past Surgical History: No - Present Medications Home Medications: Ambulatory Orders Medication Instructions Recorded Confirmed Ferrous Sulfate 220 mg PO TID #450 ml 03/07/18 Adalimumab [Humira] 10 mg SQ 05/02/18 Vancomycin [Vancocin] 250 mg PO QID #224 capsule 05/02/18 - Allergies Allergies/Adverse Reactions: Allergies Allergy/AdvReac Type Severity Reaction Status Date / Time latex Allergy Intermediate Itching Verified 05/02/18 05:53 Sulfa (Sulfonamide Allergy Unknown Verified 05/02/18 05:53 Antibiotics) - Social History Does the pt smoke?: No Smoking Status: Never smoker Does the pt drink ETOH?: No Does the pt have substance abuse?: No - Immunizations Immunizations are current?: Yes - POLST Patient has POLST: No POLST Status: Full Code PD ED PE NORMAL - Vitals Vital signs reviewed: Yes - General General: Alert and oriented X 3, No acute distress, Well developed/nourished - HEENT HEENT: Moist mucous membranes - Neck Neck: Supple, no meningeal sign - Cardiac Cardiac: RRR, No murmur - Respiratory Respiratory: No respiratory distress, Clear bilaterally, Other (Mild tenderness to palpation of midsternal area. Patient complain of discomfort when she sat up in bed.) - Abdomen Abdomen: Normal bowel sounds, Soft, Non tender, Non distended - Derm Derm: Normal color, Warm and dry, No rash - Extremities Extremities: No deformity - Neuro Neuro: Alert and oriented X 3 - Psych Psych: Normal mood, Normal affect Results - Vitals Vitals: Vital Signs - 24 hr 05/02/18 05/02/18 05/02/18 05:10 05:15 06:04 Temperature 36.5 C Heart Rate 87 87 Respiratory 19 14 Rate Blood Pressure 99/67 107/66 Blood Pressure 99/67 [Left] Blood Pressure 101/71 [Right] O2 Saturation 98 100 05/02/18 05/02/18 07:30 08:30 Temperature Heart Rate 86 81 Respiratory 19 20 Rate Blood Pressure 102/69 104/66 Blood Pressure [Left] Blood Pressure [Right] O2 Saturation 99 100 Oxygen O2 Source Room air - EKG (time done) 0529 Rate: Rate (enter#) Rhythm: NSR [place]: Normal Intervals: Normal [place] QRS: Normal Ischemia: Normal ST segments - Labs Labs: Microbiology 05/02/18 07:10 Clostridium difficile (PCR) - Final Stool Laboratory Tests 05/02/18 05/02/18 05/02/18 05:45 05:45 05:45 WBC 6.0 RBC 3.57 L Hgb 8.3 L Hct 26.3 L MCV 73.8 L MCH 23.3 L MCHC 31.6 L RDW 18.8 H Plt Count 379 MPV 6.7 L Neut # (Auto) 3.8 Lymph # (Auto) 1.4 L [place] # (Auto) 0.7 Eos # (Auto) 0.2 Baso # (Auto) 0.0 Absolute Nucleated RBC 0.00 Nucleated RBC % 0.1 D-Dimer Sodium 137 Potassium 3.5 Chloride 101 Carbon Dioxide 27 Anion Gap 9.0 BUN 9 Creatinine 0.7 Estimated GFR (MDRD) 98 Glucose 112 H Calcium 8.6 Total Bilirubin 0.3 AST 12 ALT < 10 L Alkaline Phosphatase 57 Troponin I < 0.04 Total Protein 6.1 L Albumin 2.9 L Globulin 3.2 Albumin/Globulin Ratio 0.9 L Lipase 23 05/02/18 05/02/18 07:54 07:54 WBC RBC Hgb Hct MCV MCH MCHC RDW Plt Count MPV Neut # (Auto) Lymph # (Auto) [place] # (Auto) Eos # (Auto) Baso # (Auto) Absolute Nucleated RBC Nucleated RBC % D-Dimer < 200.0 L Sodium Potassium Chloride Carbon Dioxide Anion Gap BUN Creatinine Estimated GFR (MDRD) Glucose Calcium Total Bilirubin AST ALT Alkaline Phosphatase Troponin I < 0.04 Total Protein Albumin Globulin Albumin/Globulin Ratio Lipase PD MEDICAL DECISION MAKING - ED course Complexity details: reviewed results, re-evaluated patient, considered differential (Costochondritis, pleurisy, ACS, PE, pneumonia, cdiff), d/w patient ED course: 35 patient in no acute distress and nontoxic-appearing. She was informed that her hemoglobin is 8.3. She stated this is her current level related to her ulcerative colitis and she was prescribed iron.Patient was updated on her test results and agreed to a second heart enzyme. Currently waiting for the results of her stool test. 36 patient inform of her negative troponin and d-dimer and positive C. difficile. Patient stated she usually takes Vanco 250 mg tablets 4 times a day for 28 days. She will call her GI doctor and inform her about this. Patient states she is ready to go home and she does not need any work note as her boss is in the bedside. Departure - Departure Disposition: 01 Home, Self Care Clinical Impression: Chest wall pain, C. difficile diarrhea, C. difficile colitis Condition: Stable Instructions: ED Chest Pain Costochondritis, ED Diet Vomiting Diarrhea Prescriptions: Vancomycin [Vancocin] 250 mg PO QID #224 capsule Comments: Follow-up with your primary doctor and your GI doctor this week. Take the vancomycin tablets as prescribed For your C. difficile. If worse return to the emergency room.
[2018-05-02 08:48] VITALS: BP 104/66
== END 2018-05-02 09:44 | disposition home or self-care (01) ==
LOC: ED 05:10
DX: R07.89 Other chest pain (principal); A04.72 Enterocolitis due to Clostridium difficile, not specified as recurrent; K50.90 Crohn's disease, unspecified, without complications
CPT/HCPCS: 36415; 71046; 80053; 83690; 84484; 85025; 85379; 87493; 93005; 99283; 99284

== ENCOUNTER 2018-08-08 07:55 | Emergency (ER) | payer OTHER ==
[2018-08-08 08:15] VITALS: BP 113/70
--- NOTE | 2018-08-08 08:55 | ED Physician Documentation ---
PD HPI ANIMAL BITE - Stated complaint Stated Complaint: DOG BITE ON NOSE - Chief complaint Chief Complaint: Laceration - History obtained from History obtained from: Patient - History of Present Illness Location of injury(ies): Face Details of the event: Dog, Bite, Ill appearing, Immunized, Provoked, Animal can be observed Timing - onset: Today Timing - duration: Minutes Timing - details: Abrupt onset, Still present Improved by: Rest Worsened by: Moving, Palpating Contributing factors: Immunocompromised Similar symptoms before: Has not had sx before Recently seen: Not recently seen - Additional information Additional information: 33-year-old female with history of Crohn's disease was hand feeding her dog this morning when she bent down to pick up man something the dog lunged forward and bit her nose. The patient indicates the dog has been sick recently had surgery yesterday and is about 10 years old. She believes the dog thought she had more food to give her and this is how the injury happened. The patient states she has had problems with antibiotic in the past with Cipro and Flagyl causing C. difficile. 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 : None HEENT: None Psych: None Musculoskeletal: None Derm: None - Past Surgical History Past Surgical History: No - Present Medications Home Medications: Ambulatory Orders Medication Instructions Recorded Confirmed Ferrous Sulfate 220 mg PO TID #450 ml 03/07/18 Adalimumab [Humira] 10 mg SQ 05/02/18 Vancomycin [Vancocin] 250 mg PO QID #224 capsule 05/02/18 Cephalexin [Keflex] 500 mg PO Q6H #28 capsule 08/08/18 - Allergies Allergies/Adverse Reactions: Allergies Allergy/AdvReac Type Severity Reaction Status Date / Time latex Allergy Intermediate Itching Verified 08/08/18 08:15 Sulfa (Sulfonamide Allergy Unknown Verified 08/08/18 08:15 Antibiotics) - Social History Does the pt smoke?: No Smoking Status: Never smoker Does the pt drink ETOH?: No Does the pt have substance abuse?: No - Immunizations Immunizations are current?: Yes - POLST Patient has POLST: No POLST Status: Full Code PD ED PE NORMAL - Vitals Vital signs reviewed: Yes (normal ) - General General: Alert and oriented X 3, No acute distress, Well developed/nourished - HEENT HEENT: PERRL, EOMI, Other (There is a 2cm U shaped lac to the nose on the left side. There is not involvement of deeper structures. 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, No motor deficit, No sensory deficit, Normal speech Eye Opening: Spontaneous Motor: Obeys Commands Verbal: Oriented GCS Score: 15 - Psych Psych: Normal mood, Normal affect Results - Vitals Vitals: Vital Signs - 24 hr 08/08/18 08:13 Temperature 37.0 C Heart Rate 94 Respiratory 18 Rate Blood Pressure 113/70 O2 Saturation 100 Oxygen O2 Source Room air Procedures - Laceration (location) nose Length in cm: 2 Wound type: Curved, Flap, Clean Wound Preparation: Irrigated copiously NS, Wound explored, To the base Skin layer closure: Dermabond Other: Patient tolerated well, No complications, Neurovascular intact, Dressing applied, Tetanus UTD Complexity: Simple PD MEDICAL DECISION MAKING - ED course Complexity details: considered differential, d/w patient ED course: Dog bite to the nose which is superficial. There is some bruising of the tissue. The patient is immunocompromised and we will put her on some Keflex. I have asked the patient to discontinue the Keflex letter at the earliest time possible specifically after the third day if there is no evidence of inflammation. Departure - Departure Disposition: 01 Home, Self Care Clinical Impression: Dog bite of nose Qualifiers: Encounter type: initial encounter Qualified Code(s): S01.25XA - Open bite of nose, initial encounter; W54.0XXA - Bitten by dog, initial encounter Condition: Stable Instructions: ED Bite Dog Follow-Up: Helena Rees MD [Primary Care Provider] - Prescriptions: Cephalexin [Keflex] 500 mg PO Q6H #28 capsule
== END 2018-08-08 09:17 | disposition home or self-care (01) ==
LOC: ED 07:55
DX: S01.25XA Open bite of nose, initial encounter (principal); W54.0XXA Bitten by dog, initial encounter; Y93.K9 Activity, other involving animal care
CPT/HCPCS: 12011; 99283

== ENCOUNTER 2019-04-10 12:58 | Emergency (ER) | payer OTHER ==
[2019-04-10 13:09] VITALS: BP 114/65
--- NOTE | 2019-04-10 15:35 | ED Physician Documentation ---
PD HPI SKIN - Stated complaint Stated Complaint: BUMP ON SHOULDER - Chief complaint Chief Complaint: Wound - History obtained from History obtained from: Patient - History of Present Illness Timing - onset: How many days ago (2) Timing - duration: Days (2) Timing - details: Abrupt onset, Still present Location: Back (left suprascapular area at bra strap line.) Quality / character: Painful, Discolored (some redness), Swelling Associated symptoms: No: Fever, Myalgias Contributing factors: No: Insect bite /sting, Recent illness Similar symptoms before: Diagnosis (prior abscess left thigh last year. 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 : None HEENT: None Psych: None Musculoskeletal: None Derm: None - Past Surgical History Past Surgical History: No - Present Medications Home Medications: Ambulatory Orders Medication Instructions Recorded Confirmed Ferrous Sulfate 220 mg PO TID #450 ml 03/07/18 Adalimumab [Humira] 10 mg SQ 05/02/18 Vancomycin [Vancocin] 250 mg PO QID #224 capsule 05/02/18 Cephalexin [Keflex] 500 mg PO Q6H #28 capsule 08/08/18 Doxycycline Monohydrate 100 mg PO BID #14 tablet 04/10/19 Ibuprofen [Motrin] 600 mg PO TID PRN #25 tab 04/10/19 - Allergies Allergies/Adverse Reactions: Allergies Allergy/AdvReac Type Severity Reaction Status Date / Time latex Allergy Intermediate Itching Verified 04/10/19 13:09 Sulfa (Sulfonamide Allergy Unknown Verified 04/10/19 13:09 Antibiotics) - Social History Does the pt smoke?: No Smoking Status: Never smoker Does the pt drink ETOH?: No Does the pt have substance abuse?: No - Immunizations Immunizations are current?: Yes - POLST Patient has POLST: No POLST Status: Full Code PD ED PE NORMAL - Vitals Vital signs reviewed: Yes - General General: Alert and oriented X 3, No acute distress, Well developed/nourished - Cardiac Cardiac: RRR, No murmur - Derm Derm: Normal color, Warm and dry, Other (left suprascapular area with local area of raised fluctuance and tenderness, mild redness. No surrounding redness. c/w likely secaceous cyst with infection. ) - Neuro Neuro: Alert and oriented X 3, No motor deficit, Normal speech Results - Vitals Vitals: Vital Signs - 24 hr 04/10/19 13:05 Temperature 98.5 C H Heart Rate 82 Respiratory 16 Rate Blood Pressure 114/65 O2 Saturation 98 Oxygen O2 Source Room air Procedures - Abscess I&D (location) left suprascapular area Preparation: Lidocaine 1%, With epi Incision: Incised with scalpel, Purulent drainage (along with thick sebaceum), Irrigated. No: Culture obtained Other: Pt tolerated well, Antibiotic prescribed PD MEDICAL DECISION MAKING - ED course Complexity details: considered differential, d/w patient Departure - Departure Disposition: 01 Home, Self Care Clinical Impression: Infected sebaceous cyst of skin Condition: Stable Record reviewed to determine appropriate education?: Yes Instructions: ED Abscess IandD Follow-Up: Helena Rees MD [Primary Care Provider] - Prescriptions: Doxycycline Monohydrate 100 mg PO BID #14 tablet Ibuprofen [Motrin] 600 mg PO TID PRN #25 tab PRN Reason: Pain Comments: Warm ice towels to the area periodically to promote continued drainage. Ibuprofen 3 times a day as needed for pain and swelling. Add Tylenol if needed. Doxycycline antibiotic twice daily for a week for the infection. Recheck if not fully improved over the next several days to week. Discharge Date/Time: 04/10/19 16:11
[2019-04-10] MEDS ORDERED: DOXYCYCLINE 100 MG TABLET PO STA (15:56)
[2019-04-10] MEDS ORDERED: IBUPROFEN 600 MG TABLET PO STA (15:56)
[2019-04-10] MEDS ORDERED: ACETAMINOPHEN 325 MG TABLET PO STA (15:56)
== END 2019-04-10 16:11 | disposition home or self-care (01) ==
LOC: ED 12:58
DX: L72.3 Sebaceous cyst (principal)
CPT/HCPCS: 10060; 99282; 99283; A9270

== ENCOUNTER 2019-06-17 13:43 | Emergency (ER) | payer OTHER ==
[2019-06-17 13:53] VITALS: BP 104/69
[2019-06-17] MEDS ORDERED: ONDANSETRON ODT 4 MG TABLET TL STA (14:05)
[2019-06-17] MEDS ORDERED: DICYCLOMINE 10 MG CAPSULE PO STA (14:06)
--- NOTE | 2019-06-17 14:08 | ED Physician Documentation ---
PD HPI NVD - Stated complaint Stated Complaint: ABD PX - Chief complaint Chief Complaint: Abd Pain - History obtained from History obtained from: Patient (G1 at 9 weeks gestation complains of 4 hours of generalized abdominal cramping and nausea without vomiting or diarrhea. No known sick contacts or recent travel. 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 : None HEENT: None Psych: None Musculoskeletal: None Derm: None - Past Surgical History Past Surgical History: No - Present Medications Home Medications: Ambulatory Orders Medication Instructions Recorded Confirmed Ferrous Sulfate 220 mg PO TID #450 ml 03/07/18 Adalimumab [Humira] 10 mg SQ 05/02/18 Vancomycin [Vancocin] 250 mg PO QID #224 capsule 05/02/18 Cephalexin [Keflex] 500 mg PO Q6H #28 capsule 08/08/18 Doxycycline Monohydrate 100 mg PO BID #14 tablet 04/10/19 Ibuprofen [Motrin] 600 mg PO TID PRN #25 tab 04/10/19 Dicyclomine [Bentyl] 20 mg PO QID PRN #15 capsule 06/17/19 Ondansetron Odt [Zofran] 4 mg TL Q6H PRN #10 tablet 06/17/19 - Allergies Allergies/Adverse Reactions: Allergies Allergy/AdvReac Type Severity Reaction Status Date / Time latex Allergy Intermediate Itching Verified 06/17/19 13:49 Sulfa (Sulfonamide Allergy Unknown Verified 06/17/19 13:49 Antibiotics) - Social History Does the pt smoke?: No Smoking Status: Never smoker Does the pt drink ETOH?: No Does the pt have substance abuse?: No - Immunizations Immunizations are current?: Yes - POLST Patient has POLST: No POLST Status: Full Code PD ED PE NORMAL - Vitals Vital signs reviewed: Yes - General General: Alert and oriented X 3, No acute distress - Abdomen Abdomen: Soft, Non tender, Other (Hyperactive bowel tones without tenderness. Bedside ultrasound demonstrates single live intrauterine with heart rate of 170. No free fluid.) - Back Back: No CVA TTP, No spinal TTP - Derm Derm: Normal color, Warm and dry - Extremities Extremities: No edema, No calf tenderness / cord - Neuro Neuro: Alert and oriented X 3, Normal speech Results - Vitals Vitals: Vital Signs - 24 hr 06/17/19 13:49 Temperature 36.5 C Heart Rate 70 Respiratory 14 Rate Blood Pressure 104/69 O2 Saturation 100 Oxygen O2 Source Room air - Labs Labs: Laboratory Tests 06/17/19 06/17/19 06/17/19 14:10 14:21 14:21 WBC 9.3 RBC 4.46 Hgb 13.5 Hct 38.7 MCV 86.8 MCH 30.3 MCHC 34.9 RDW 12.2 Plt Count 210 MPV 9.9 Neut # (Auto) 6.8 H Lymph # (Auto) 1.9 [place] # (Auto) 0.5 Eos # (Auto) 0.0 Baso # (Auto) 0.0 Absolute Nucleated RBC 0.00 Nucleated RBC % 0.0 Sodium 133 L Potassium 3.7 Chloride 99 L Carbon Dioxide 23 Anion Gap 11.0 BUN 13 Creatinine 0.6 Estimated GFR (MDRD) 116 Glucose 98 Calcium 9.4 Total Bilirubin 0.6 AST 18 ALT 18 Alkaline Phosphatase 36 L Total Protein 7.1 Albumin 4.0 Globulin 3.1 Albumin/Globulin Ratio 1.3 Lipase 28 Urine Color YELLOW Urine Clarity CLEAR Urine pH 6.0 Ur Specific [place] 1.025 Urine Protein NEGATIVE Urine Glucose (UA) NEGATIVE Urine Ketones NEGATIVE Urine Occult Blood SMALL H Urine Nitrite NEGATIVE Urine Bilirubin NEGATIVE Urine Urobilinogen 0.2 (NORMAL) Ur Leukocyte Esterase TRACE H Urine RBC 0-5 Urine WBC 4-5 Ur Squamous Epith Cells MANY Squamous H Urine Bacteria Few Ur Microscopic Review INDICATED Urine Culture Comments NOT INDICATED PD MEDICAL DECISION MAKING - ED course ED course: 34-year-old woman , complains of general abdominal, not pelvic, cramping and some nausea. This is most consistent with a mild enteritis or viral process. Benign exam and unremarkable labs. Close watchful waiting was advised. Departure - Departure Disposition: 01 Home, Self Care Clinical Impression: Gastroenteritis Condition: Good Record reviewed to determine appropriate education?: Yes Instructions: ED Gastroenteritis Viral Prescriptions: Dicyclomine [Bentyl] 20 mg PO QID PRN #15 capsule PRN Reason: Abdominal Pain Ondansetron Odt [Zofran] 4 mg TL Q6H PRN #10 tablet PRN Reason: Nausea / Vomiting Comments: If you are not better in the next 12 to 24 hours please return for reevaluation, anytime if worse. Forms: Activity restrictions
[2019-06-17 14:28] LABS: BASOPHILS % (AUTO) 0.4 %; EOSINOPHILS % (AUTO) 0.3 %; HGB - HEMOGLOBIN 13.5 g/dL (12.0-16.0); LYMPHOCYTES # (AUTO) 1.9 10^3/uL (1.5-3.5); LYMPHOCYTES % (AUTO) 20.2 %; MEAN CORPUSCULAR HEMOGLOBIN 30.3 pg (27.0-31.0); MEAN CORPUSCULAR HGB CONC 34.9 g/dL (32.0-36.0); MEAN CORPUSCULAR VOLUME 86.8 fL (81.0-99.0); MEAN PLATELET VOLUME 9.9 fL (7.9-10.8); MONOCYTES # (AUTO) 0.5 10^3/uL (0.0-1.0); MONOCYTES % (AUTO) 4.9 %; NEUTROPHILS # (AUTO) 6.8 10^3/uL (1.5-6.6); NEUTROPHILS % (AUTO) 73.8 %; PLT - PLATELET COUNT 210 10^3/uL (130-450); RED BLOOD COUNT 4.46 10^6/uL (4.20-5.40); RED CELL DISTRIBUTION WIDTH 12.2 % (12.0-15.0); WHITE BLOOD COUNT 9.3 x10^3/uL (4.8-10.8)
[2019-06-17 14:31] LABS: BILIRUBIN,URINE NEGATIVE (NEGATIVE); GLUCOSE, URINE (UA) NEGATIVE (NEGATIVE); KETONES,URINE (UA) NEGATIVE (NEGATIVE); LEUKOCYTE ESTERASE, URINE TRACE (NEGATIVE); NITRITE,URINE NEGATIVE (NEGATIVE); OCCULT BLOOD,URINE SMALL (NEGATIVE); PROTEIN,URINE NEGATIVE (NEGATIVE); UROBILINOGEN,URINE 0.2 (NORMAL) E.U./dL (NORMAL)
[2019-06-17 14:35] LABS: CLARITY,URINE CLEAR (CLEAR)
[2019-06-17 14:38] LABS: ALBUMIN/GLOBULIN RATIO 1.3 (1.0-2.2); BILIRUBIN,TOTAL 0.6 mg/dL (0.2-1.0); CALCIUM 9.4 mg/dL (8.5-10.3); CREATININE 0.6 mg/dL (0.4-1.0); TOTAL PROTEIN 7.1 g/dL (6.7-8.2)
[2019-06-17 14:44] LABS: BACTERIA,URINE Few /HPF (None Seen); RBC,URINE 0-5 /HPF (0-5); SQUAMOUS EPITHELIAL CELL,UR MANY Squamous (<= Few)
== END 2019-06-17 15:07 | disposition home or self-care (01) ==
LOC: ED 13:43
DX: O99.611 Diseases of the digestive system complicating pregnancy, first trimester (principal); K52.9 Noninfective gastroenteritis and colitis, unspecified; Z3A.09 9 weeks gestation of pregnancy
CPT/HCPCS: 36415; 80053; 81001; 83690; 85025; 99283; 99284; A9270; Q0162; 81003; 87086

== ENCOUNTER 2019-07-21 15:37 | Emergency (ER) | payer OTHER ==
[2019-07-21 15:49] VITALS: BP 117/69
--- NOTE | 2019-07-21 16:03 | ED Physician Documentation ---
PD HPI FEMALE - Stated complaint Stated Complaint: ABD PX - Chief complaint Chief Complaint: Abd Pain - History obtained from History obtained from: Patient, Family - History of Present Illness Timing - onset: Today Timing - duration: Hours Timing - details: Abrupt onset, Still present Associated symptoms: Abdominal pain. 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 She finds that this pain will go away when she lays back down or sits back down and when she gets up again she will have some pain again. She notices the pain is a sharp pain and it is suprapubic in nature central. She has never had this pain previously it is not anything like what she has had with pain for with her Crohn's disease and she is not currently having any diarrhea or nausea. Review of Systems Constitutional: denies: Fever, Chills, Myalgias Eyes: denies: Decreased vision Ears: denies: Ear pain Nose: denies: Congestion Throat: denies: Sore throat Cardiac: denies: Chest pain / pressure, Palpitations Respiratory: denies: Dyspnea, Cough GI: reports: Abdominal Pain, Nausea. 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 : None HEENT: None Psych: None Musculoskeletal: None Derm: None - Past Surgical History Past Surgical History: No - Present Medications Home Medications: Ambulatory Orders Medication Instructions Recorded Confirmed Ferrous Sulfate 220 mg PO TID #450 ml 03/07/18 Adalimumab [Humira] 10 mg SQ 05/02/18 Vancomycin [Vancocin] 250 mg PO QID #224 capsule 05/02/18 Cephalexin [Keflex] 500 mg PO Q6H #28 capsule 08/08/18 Doxycycline Monohydrate 100 mg PO BID #14 tablet 04/10/19 Ibuprofen [Motrin] 600 mg PO TID PRN #25 tab 04/10/19 Dicyclomine [Bentyl] 20 mg PO QID PRN #15 capsule 06/17/19 Ondansetron Odt [Zofran] 4 mg TL Q6H PRN #10 tablet 06/17/19 - Allergies Allergies/Adverse Reactions: Allergies Allergy/AdvReac Type Severity Reaction Status Date / Time latex Allergy Intermediate Itching Verified 07/21/19 15:46 Sulfa (Sulfonamide Allergy Unknown Verified 07/21/19 15:46 Antibiotics) - Social History Does the pt smoke?: No Smoking Status: Never smoker Does the pt drink ETOH?: No Does the pt have substance abuse?: No - Immunizations Immunizations are current?: Yes - POLST Patient has POLST: No POLST Status: Full Code PD ED PE NORMAL - Vitals Vital signs reviewed: Yes (normal ) - General General: Alert and oriented X 3, No acute distress, Well developed/nourished - HEENT HEENT: Atraumatic, PERRL, EOMI - Neck Neck: Supple, no meningeal sign, No bony TTP - Cardiac Cardiac: RRR, No murmur - Respiratory Respiratory: No respiratory distress, Clear bilaterally - Abdomen Abdomen: Normal bowel sounds, Soft, Non tender, Non distended, No organomegaly - Back Back: No CVA TTP, No spinal TTP - Derm Derm: Normal color, Warm and dry, No rash - Extremities Extremities: No deformity, No edema, No calf tenderness / cord - Neuro Neuro: Alert and oriented X 3, machine crater 2-12 intact, No motor deficit, No sensory deficit, Normal speech Eye Opening: Spontaneous Motor: Obeys Commands Verbal: Oriented GCS Score: 15 - Psych Psych: Normal mood, Normal affect Results - Vitals Vitals: Vital Signs - 24 hr 07/21/19 15:46 Temperature 36.9 C Heart Rate 73 Respiratory 16 Rate Blood Pressure 117/69 O2 Saturation 100 Oxygen O2 Source Room air - Labs Labs: Laboratory Tests 07/21/19 07/21/19 07/21/19 15:42 16:10 16:10 WBC 8.8 RBC 4.33 Hgb 13.4 Hct 38.6 MCV 89.1 MCH 30.9 MCHC 34.7 RDW 12.5 Plt Count 193 MPV 9.8 Neut # (Auto) 6.2 Lymph # (Auto) 1.8 [place] # (Auto) 0.6 Eos # (Auto) 0.2 Baso # (Auto) 0.0 Absolute Nucleated RBC 0.00 Nucleated RBC % 0.0 Sodium 133 L Potassium 3.3 L Chloride 104 Carbon Dioxide 20 L Anion Gap 9.0 BUN 14 Creatinine 0.6 Estimated GFR (MDRD) 116 Glucose 81 Calcium 9.1 Total Bilirubin 0.3 AST 19 ALT 14 Alkaline Phosphatase 37 L Total Protein 6.6 L Albumin 3.5 Globulin 3.1 Albumin/Globulin Ratio 1.1 Lipase 31 Urine Color YELLOW Urine Clarity CLEAR Urine pH 6.0 Ur Specific [place] 1.020 Urine Protein NEGATIVE Urine Glucose (UA) NEGATIVE Urine Ketones NEGATIVE Urine Occult Blood TRACE-INTA Urine Nitrite NEGATIVE Urine Bilirubin NEGATIVE Urine Urobilinogen 0.2 (NORMAL) Ur Leukocyte Esterase NEGATIVE Ur Microscopic Review NOT INDICATED Urine Culture Comments NOT INDICATED Procedures - Bedside sono Bedside sono by EMP: With the use of bedside ultrasound the pelvis is imaged there is a 15-week intrauterine gestation with a heart rate of 156. The baby is active and the uterus is sonographically nontender. PD MEDICAL DECISION MAKING - ED course Complexity details: reviewed results, re-evaluated patient, considered differential, d/w patient, d/w family ED course: 34-year-old female with the onset of suprapubic pain that is worse if she is up and moving around and resolves if she is still. I suspect round ligament pain as does the patient. There are no other findings on examination and the baby looks well on bedside ultrasound. We will check blood counts and urinalysis. Departure - Departure Disposition: 01 Home, Self Care Clinical Impression: Discomfort during Condition: Stable Instructions: ED Preg Established Normal Sxs Follow-Up: Helena Rees MD [Primary Care Provider] -
[2019-07-21 16:12] LABS: BILIRUBIN,URINE NEGATIVE (NEGATIVE); GLUCOSE, URINE (UA) NEGATIVE (NEGATIVE); KETONES,URINE (UA) NEGATIVE (NEGATIVE); LEUKOCYTE ESTERASE, URINE NEGATIVE (NEGATIVE); NITRITE,URINE NEGATIVE (NEGATIVE); OCCULT BLOOD,URINE TRACE-INTA (NEGATIVE); PROTEIN,URINE NEGATIVE (NEGATIVE); UROBILINOGEN,URINE 0.2 (NORMAL) E.U./dL (NORMAL)
[2019-07-21 16:17] LABS: BASOPHILS % (AUTO) 0.3 %; EOSINOPHILS # (AUTO) 0.2 10^3/uL (0.0-0.7); HGB - HEMOGLOBIN 13.4 g/dL (12.0-16.0); LYMPHOCYTES # (AUTO) 1.8 10^3/uL (1.5-3.5); LYMPHOCYTES % (AUTO) 20.7 %; MEAN CORPUSCULAR HEMOGLOBIN 30.9 pg (27.0-31.0); MEAN CORPUSCULAR HGB CONC 34.7 g/dL (32.0-36.0); MEAN CORPUSCULAR VOLUME 89.1 fL (81.0-99.0); MEAN PLATELET VOLUME 9.8 fL (7.9-10.8); MONOCYTES # (AUTO) 0.6 10^3/uL (0.0-1.0); MONOCYTES % (AUTO) 6.4 %; NEUTROPHILS # (AUTO) 6.2 10^3/uL (1.5-6.6); NEUTROPHILS % (AUTO) 70.3 %; PLT - PLATELET COUNT 193 10^3/uL (130-450); RED BLOOD COUNT 4.33 10^6/uL (4.20-5.40); RED CELL DISTRIBUTION WIDTH 12.5 % (12.0-15.0); WHITE BLOOD COUNT 8.8 x10^3/uL (4.8-10.8)
[2019-07-21 16:19] LABS: CLARITY,URINE CLEAR (CLEAR)
[2019-07-21 16:27] LABS: ALBUMIN 3.5 g/dL (3.2-5.5); ALBUMIN/GLOBULIN RATIO 1.1 (1.0-2.2); BILIRUBIN,TOTAL 0.3 mg/dL (0.2-1.0); CALCIUM 9.1 mg/dL (8.5-10.3); CREATININE 0.6 mg/dL (0.4-1.0); TOTAL PROTEIN 6.6 g/dL (6.7-8.2)
[2019-07-21] MEDS ORDERED: POTASSIUM CHLORIDE 20 MEQ TABLET PO STA (16:28)
== END 2019-07-21 16:40 | disposition home or self-care (01) ==
LOC: ED 15:37
DX: O26.892 Other specified pregnancy related conditions, second trimester (principal); R10.9 Unspecified abdominal pain; Z3A.15 15 weeks gestation of pregnancy; Z87.19 Personal history of other diseases of the digestive system
CPT/HCPCS: 36415; 80053; 81003; 83690; 85025; 99283; 99284; A9270; 81001; 87086

== ENCOUNTER 2019-12-23 08:00 | Outpatient (CLI) | payer OTHER ==
[2019-12-23 20:19] LABS: TRICHOMONAS VAGINALIS DNA NEGATIVE (NEGATIVE)
== END 2019-12-23 23:59 | disposition home or self-care (01) ==
LOC: LAB.R 08:00
PROVIDERS: ATTEND Advanced Practice Midwife
DX: O09.90 Supervision of high risk pregnancy, unspecified, unspecified trimester (principal); Z36.85 Encounter for antenatal screening for Streptococcus B; Z11.3 Encounter for screening for infections with a predominantly sexual mode of transmission
CPT/HCPCS: 87491; 87591; 87661; 87797

== ENCOUNTER 2020-01-07 10:53 | Inpatient (IN) | payer OTHER ==
[2020-01-07] MEDS ORDERED: TRANEXAMIC ACID 1,000 MG in SODIUM CHLORIDE 0.9% 100ML 100 ML IV PRN (13:04)
[2020-01-07] MEDS ORDERED: miSOPROStoL 200 MCG TABLET BC PRN (13:04)
[2020-01-07] MEDS ORDERED: SODIUM CHLORIDE FLUSH 0.9% 10 ML SYRINGE IVP PRN (13:04)
[2020-01-07] MEDS ORDERED: ONDANSETRON 4 MG/2 ML VIAL IVP PRN (13:04)
[2020-01-07] MEDS ORDERED: OXYTOCIN 10 UNIT/ML VIAL IM PRN (13:04)
[2020-01-07] MEDS ORDERED: LIDOCAINE-MPF 1% 30 ML VIAL ID PRN (13:04)
[2020-01-07] MEDS ORDERED: OXYTOCIN/SODIUM CHLORIDE 500 ML IV PRN (13:04)
[2020-01-07] MEDS ORDERED: ACETAMINOPHEN 325 MG TABLET PO PRN (13:04)
[2020-01-07] MEDS ORDERED: METHYLERGONOVINE 0.2 MG/ML VIAL IM PRN (13:04)
[2020-01-07] MEDS ORDERED: CARBOPROST TROMETHAMINE 250 MCG/ML AMP IM PRN ×2 (13:04)
[2020-01-07] MEDS ORDERED: miSOPROStoL 200 MCG TABLET PR PRN (13:04)
[2020-01-07 13:18] LABS: BASOPHILS % (AUTO) 0.3 %; EOSINOPHILS % (AUTO) 0.3 %; HGB - HEMOGLOBIN 12.1 g/dL (12.0-16.0); LYMPHOCYTES # (AUTO) 1.5 10^3/uL (1.5-3.5); LYMPHOCYTES % (AUTO) 12.2 %; MEAN CORPUSCULAR HGB CONC 33.6 g/dL (32.0-36.0); MEAN CORPUSCULAR VOLUME 83.3 fL (81.0-99.0); MONOCYTES # (AUTO) 0.6 10^3/uL (0.0-1.0); MONOCYTES % (AUTO) 4.6 %; NEUTROPHILS # (AUTO) 10.2 10^3/uL (1.5-6.6); NEUTROPHILS % (AUTO) 81.9 %; PLT - PLATELET COUNT 228 10^3/uL (130-450); RED BLOOD COUNT 4.32 10^6/uL (4.20-5.40); RED CELL DISTRIBUTION WIDTH 12.8 % (12.0-15.0); WHITE BLOOD COUNT 12.4 x10^3/uL (4.8-10.8)
--- NOTE | 2020-01-07 13:34 | HISTORY & PHYSICAL EXAMINATION ---
Admit History - Visit Reason Visit Reason: Other (cervical ripening and induction of labor Worsening Crohns DZ) - : 1 Parity: 0 Premature: 0 Ectopic: 0 : 0 Care: positive: [facility] Risk/History: positive: None, High risk (Crohns/IBS) Complications This : positive: Other (Crohns/IBS. she is noteing left sided pain compatable with an exorbation. also decreased caliber of her stool. She is currentlu on Stelera 90 mg q 3 months) Smoking Status: Never smoker - Mother's Labs Mother's Blood Type: positive: A Mother's RH: positive: Negative GBS: positive: Group B Step Negative Rubella Status: positive: Immune Meds/Allgy - Home Medications Home Medications: Ambulatory Orders Medication Instructions Recorded Confirmed Ferrous Sulfate 220 mg PO TID #450 ml 03/07/18 Adalimumab [Humira] 10 mg SQ 05/02/18 Vancomycin [Vancocin] 250 mg PO QID #224 capsule 05/02/18 Cephalexin [Keflex] 500 mg PO Q6H #28 capsule 08/08/18 Doxycycline Monohydrate 100 mg PO BID #14 tablet 04/10/19 Ibuprofen [Motrin] 600 mg PO TID PRN #25 tab 04/10/19 Dicyclomine [Bentyl] 20 mg PO QID PRN #15 capsule 06/17/19 Ondansetron Odt [Zofran] 4 mg TL Q6H PRN #10 tablet 06/17/19 - Allergies Allergies/Adverse Reactions: Allergies Allergy/AdvReac Type Severity Reaction Status Date / Time latex Allergy Intermediate Itching Verified 07/21/19 15:46 Sulfa (Sulfonamide Allergy Unknown Verified 07/21/19 15:46 Antibiotics) tomato Allergy Cramps Verified 01/07/20 11:57 Physical - Abdominal Exam Vital Signs: Temp Pulse Resp BP Pulse Ox 36.9 C 71 16 119/81 H 01/07/20 11:19 01/07/20 11:19 01/07/20 11:19 01/07/20 11:19 Contraction Frequency (min/apart): 10 Contraction Intensity: positive: Mild Uterine Resting Tone: positive: Soft - Monitoring Heart Rate Baseline: 137 Strip Review: positive: Category I - Presentation Presentation: positive: Vertex - Vaginal Exam Membranes: positive: Membranes intact Dilation (in cm): 2 Effacement (%): 50 Station: positive: -2 Cervical Position: positive: Midposition - Speculum Exam Speculum Exam Performed: positive: Yes (Cook cathiter placed) Plan for Labor - Plan For Labor I expect patient to be DC'd or transferred within 96 hours.: Yes Plan for Labor: Patient will continue to receive her Stelara. Cook catheter is been placed we anticipate starting Pitocin upon dilatation with artificial rupture of membranes and epidural as needed.
[2020-01-07 13:36] LABS: ALBUMIN 2.9 g/dL (3.2-5.5); ALBUMIN/GLOBULIN RATIO 0.9 (1.0-2.2); BILIRUBIN,TOTAL 0.7 mg/dL (0.2-1.0); CALCIUM 9.3 mg/dL (8.5-10.3); CREATININE 0.5 mg/dL (0.4-1.0); TOTAL PROTEIN 6.3 g/dL (6.7-8.2)
[2020-01-07] MEDS ORDERED: OXYTOCIN/SODIUM CHLORIDE 500 ML IV SCH (14:00)
--- NOTE | 2020-01-07 15:09 | PROVIDER PROGRESS NOTE ---
Labor Progress Note - Uterine Monitoring Uterine Monitoring Mode: positive: External toco Contraction Frequency (min/apart): 5 Contraction Intensity: positive: Moderate Uterine Resting Tone: positive: Soft - Monitoring Monitor Mode: positive: External ultrasound Heart Rate Baseline: 140 Heart Rate Variability: positive: Moderate (6-25 bmp) Accelerations: positive: Present, 15x15 Decelerations: positive: None Strip Review: positive: Category I - Labor Progress Note Labor Progress Note/Additional Text: Pt C/O Pain 09/21. traction on cathiter.
--- NOTE | 2020-01-07 17:17 | PROVIDER PROGRESS NOTE ---
Labor Progress Note - Uterine Monitoring Uterine Monitoring Mode: positive: External toco Contraction Frequency (min/apart): 3-5 Contraction Intensity: positive: Moderate Uterine Resting Tone: positive: Soft - Monitoring Monitor Mode: positive: External ultrasound Heart Rate Baseline: 145 Heart Rate Variability: positive: Moderate (6-25 bmp) Accelerations: positive: Present, 15x15 Decelerations: positive: None Strip Review: positive: Category I - Vaginal Exam Dilation (in cm): Cook cath still in. tryed to give gental traction. - Labor Progress Note Labor Progress Note/Additional Text: continuing cervical ripening.
--- NOTE | 2020-01-07 20:01 | PROVIDER PROGRESS NOTE ---
Labor Progress Note - Uterine Monitoring Contraction Frequency (min/apart): 3-5 Contraction Intensity: positive: Moderate to strong Uterine Resting Tone: positive: Soft - Monitoring Heart Rate Baseline: 140 Heart Rate Variability: positive: Moderate (6-25 bmp) Accelerations: positive: Present, 15x15 Decelerations: positive: None Strip Review: positive: Category I - Vaginal Exam Dilation (in cm): 5 Effacement (%): 80% Cervical Position: Midposition - Labor Progress Note Labor Progress Note/Additional Text: Cook out with traction. good cervical progress however head out of the pelvis secondary to the Cook. Start Pitocin to drive the head into the pelvis.
[2020-01-07] MEDS: LACTATED RINGERS 1,000 ML IV SCH (20:04)
--- NOTE | 2020-01-08 08:10 | PROVIDER PROGRESS NOTE ---
Subjective - Subjective Subjective: Frustrated, not feeling much discomfort. Good FM, no LOF. Some VB but not like menses. AVSS Alert, NAD SVE 4/75/-3/med/mid ballotable Cat 1 NST [place] q2min A/P: great labor pattern but no SVE change on 12 of --baby is ballotable so no AROM. Will switch to miso to see if we can get a better response. discussed with pt that her IOL could take 24-48h longer. Objective - Vital Signs/Intake & Output Intake & Output: Intake & Output 01/05/20 01/06/20 01/07/20 01/08/20 23:59 23:59 23:59 23:59 Intake Total 450 Balance 450 - Lab Results Fish Bones: 01/07/20 12:00 01/07/20 13:20 Other Labs: Lab Results x24hrs 01/07/20 01/07/20 01/07/20 Range/Units 13:20 12:00 12:00 WBC 12.4 H (4.8-10.8) x10^3/uL RBC 4.32 (4.20-5.40) 10^6/uL Hgb 12.1 (12.0-16.0) g/dL Hct 36.0 L (37.0-47.0) % MCV 83.3 (81.0-99.0) fL MCH 28.0 (27.0-31.0) pg MCHC 33.6 (32.0-36.0) g/dL RDW 12.8 (12.0-15.0) % Plt Count 228 (130-450) 10^3/uL MPV 11.0 H (7.9-10.8) fL Neut # (Auto) 10.2 H (1.5-6.6) 10^3/uL Lymph # (Auto) 1.5 (1.5-3.5) 10^3/uL [place] # (Auto) 0.6 (0.0-1.0) 10^3/uL Eos # (Auto) 0.0 (0.0-0.7) 10^3/uL Baso # (Auto) 0.0 (0.0-0.1) 10^3/uL Absolute Nucleated RBC 0.00 x10^3/uL Nucleated RBC % 0.0 /100WBC Sodium 135 (135-145) mmol/L Potassium 3.7 (3.5-5.0) mmol/L Chloride 104 (101-111) mmol/L Carbon Dioxide 20 L (21-32) mmol/L Anion Gap 11.0 (6-13) BUN 9 (6-20) mg/dL Creatinine 0.5 (0.4-1.0) mg/dL Estimated GFR (MDRD) 143 (>89) Glucose 126 H (70-100) mg/dL Calcium 9.3 (8.5-10.3) mg/dL Total Bilirubin 0.7 (0.2-1.0) mg/dL AST 22 (10-42) IU/L ALT 19 (10-60) IU/L Alkaline Phosphatase 139 H (42-121) IU/L Total Protein 6.3 L (6.7-8.2) g/dL Albumin 2.9 L (3.2-5.5) g/dL Globulin 3.4 (2.1-4.2) g/dL Albumin/Globulin Ratio 0.9 L (1.0-2.2) Blood Type A NEGATIVE Antibody Screen NEGATIVE
[2020-01-08] MEDS: LACTATED RINGERS 1,000 ML IV SCH ×2 (08:22→13:16)
[2020-01-08] MEDS: SODIUM CHLORIDE FLUSH 0.9% 10 ML SYRINGE IVP SCH ×2 (08:23→17:15)
[2020-01-08] MEDS: miSOPROStoL 100 MCG TABLET PO SCH ×4 (09:17→21:23)
--- NOTE | 2020-01-08 17:44 | PROVIDER PROGRESS NOTE ---
Subjective - Subjective Subjective: Mild cramping pain. Sensation of more pressure. AVSS Alert, NAD SVE unchanged but baby is not as ballotable A/P: baby is better applied to the cervix, will continue with the misoprostol and then AROM when ready. Objective - Vital Signs/Intake & Output Intake & Output: Intake & Output 01/05/20 01/06/20 01/07/20 01/08/20 23:59 23:59 23:59 23:59 Intake Total 1474 Balance 1474 - Lab Results Fish Bones: 01/07/20 12:00 01/07/20 13:20
[2020-01-09] MEDS: miSOPROStoL 100 MCG TABLET PO SCH ×5 (01:04→18:08)
--- NOTE | 2020-01-09 09:54 | ANESTHESIA ---
Pre-Anesthesia VS, & Labs - Diagnosis Failure to progress, no descent into pelvis - Procedure possible C/S Vital Signs: Temp Pulse Resp BP Pulse Ox 36.8 C 79 16 126/86 H 99 01/09/20 01:36 01/09/20 01:36 01/09/20 01:36 01/09/20 01:36 01/09/20 01:36 Height 5 ft 8 in Weight (kg) 87.09 kg Body Mass Index 24.6 - NPO Last Fluid Intake: clears t/o day - Is Patient ?: Yes - Lab Results Current Lab Results: Laboratory Tests 01/07/20 13:20: Sodium 135, Potassium 3.7, Chloride 104, Carbon Dioxide 20 L, Anion Gap 11.0, BUN 9, Creatinine 0.5, Estimated GFR (MDRD) 143, Glucose 126 H, Calcium 9.3, Total Bilirubin 0.7, AST 22, ALT 19, Alkaline Phosphatase 139 H, Total Protein 6.3 L, Albumin 2.9 L, Globulin 3.4, Albumin/Globulin Ratio 0.9 L 01/07/20 12:00: WBC 12.4 H, RBC 4.32, Hgb 12.1, Hct 36.0 L, MCV 83.3, MCH 28.0, MCHC 33.6, RDW 12.8, Plt Count 228, MPV 11.0 H, Neut # (Auto) 10.2 H, Lymph # (Auto) 1.5, [place] # (Auto) 0.6, Eos # (Auto) 0.0, Baso # (Auto) 0.0, Absolute Nucleated RBC 0.00, Nucleated RBC % 0.0 01/07/20 12:00: Blood Type A NEGATIVE, Antibody Screen NEGATIVE Lab results reviewed: Yes Fish Bones: 01/07/20 12:00 01/07/20 13:20 Home Medications and Allergies Active Medications Acetaminophen (Tylenol) 650 mg PO Q6H PRN PRN Reason: Pain or Fever Carboprost Tromethamine (Hemabate) 250 mcg IM Q15M PRN PRN Reason: Step 4: Hemorrhage protocol Stop: 01/12/20 13:05 Hydrocortisone (Hydrocortisone) 1 applic TOP BID SUSANNE Lactated Ringer's (Lr) 1,000 mls @ 100 mls/hr IV .Q10H SUSANNE Last Admin: 01/08/20 13:16 Dose: Not Given Documented by: Tranexamic Acid 1,000 mg/ (Sodium Chloride) 110 mls @ 660 mls/hr IV .ONCE PRN PRN Reason: EBL >1200mL and within 3hr Stop: 01/12/20 13:05 Oxytocin/Sodium Chloride (Pitocin/Sodium Chloride) 500 mls @ 1 mls/hr IV TITR SUSANNE; Protocol Lidocaine HCl (Xylocaine-Mpf 1% Vial) 30 ml ID .ONCE PRN PRN Reason: PERINEAL REPAIR Stop: 01/12/20 13:05 Methylergonovine Maleate (Methergine Inj) 0.2 mg IM .ONCE PRN PRN Reason: Step 2: Hemorrhage protocol Stop: 01/12/20 13:05 Misoprostol (Cytotec) 800 mcg BC .ONCE PRN PRN Reason: Step 3: Hemorrhage protocol Stop: 01/12/20 13:05 Misoprostol (Cytotec) 50 mcg PO Q4H [facility] Last Admin: 01/09/20 05:21 Dose: 50 mcg Documented by: Ondansetron HCl (Zofran Inj) 4 mg IVP Q4HR PRN PRN Reason: Nausea / Vomiting Oxytocin (Pitocin) 10 unit IM .ONCE PRN PRN Reason: Step one: If no IV access Stop: 01/12/20 13:05 Sodium Chloride (Normal Saline Flush 0.9%) 10 ml IVP 0100,0900,1700 [facility] Last Admin: 01/08/20 17:15 Dose: 10 ml Documented by: Sodium Chloride (Normal Saline Flush 0.9%) 10 ml IVP PRN PRN PRN Reason: NEEDED PER PROVIDER ORDERS Adalimumab [Humira] 10 mg SQ 05/02/18 Allergies/Adverse Reactions: Allergies Allergy/AdvReac Type Severity Reaction Status Date / Time latex Allergy Intermediate Itching Verified 07/21/19 15:46 Sulfa (Sulfonamide Allergy Unknown Verified 07/21/19 15:46 Antibiotics) tomato Allergy Cramps Verified 01/07/20 11:57 Anes History & Medical History - Anesthetic History Anesthesia Complications: reports: No previous complications Family history of Anesthesia Complications: Denies Family history of Malignant Hyperthermia: Denies - Medical History Cardiovascular: reports: None Pulmonary: reports: None Gastrointestinal: reports: Ulcerative colitis, Crohn's disease Urinary: reports: None Neuro: reports: None Musculoskeletal: reports: None Endocrine/Autoimmune: reports: None Blood Disorders: reports: Anemia Skin: reports: None Smoking Status: Never smoker - Obstetrical History : 1 Parity: 0 Events: positive: None, High risk (Crohns/IBS) Complications: positive: Other (Crohns/IBS. she is noteing left sided pain compatable with an exorbation. also decreased caliber of her stool. She is currentlu on Stelera 90 mg q 3 months) Exam General: Alert, Oriented x3, Cooperative Dental: WNL Mouth Openin Fingerbreadth Neck Mobility: Normal Mallampati classification: I Thyromental Distance: greater than 6 cm Respiratory: Lungs clear, Normal breath sounds, No respiratory distress Cardiovascular: Regular rate Neurological: Normal speech Mental/Cognitive Status: Alert/Oriented X3, Normal for patient Cognitive Status: Within normal limits Plan Anesthesia Type: General, Spinal (TBD), Transverse Abdominis Plane (TAP) Block (TBD) Consent for Procedure(s) Verified and Reviewed: Yes Code Status: Attempt Resuscitation ASA classification: 2-Mild systemic disease Is this case an emergency?: No (not at time of pre-op evaluation)
--- NOTE | 2020-01-09 10:32 | PROVIDER PROGRESS NOTE ---
Subjective - Subjective Subjective: Feeling some more LLQ cramping, not associated with contractions. Cramping with UC is a bit more. A bit more pressure in the pelvis. No VB, no LOF. less FM. AVSS Alert, NAD SVE unchanged by RN Category 1 NST Good toco pattern 34yo G0 IOL for crohn's exacerbation. Vtx, EFW 8.7, pelvis is adequate. Pt has had nearly 36h of pitocin and misoprostol, baby still ballotable. Disussed options of going home and attempt IOL in a few days vs. further attempts at delivery now. She prefers the latter as she doesn't want her flare to worsen. We will plan to AROM with fundal pressure this afternoon when OR crew is available. Clears only, will prep for , pt is aware that she would need general anesthesia if there is a cord prolapse. Reveiewed how the procedure is performed, risks include bleeding, infection, trauma to local organs, anesthesiA complications, and problems with future pregnancies due to scar on the uterus. All questions answered. Objective - Vital Signs/Intake & Output Intake & Output: Intake & Output 01/06/20 01/07/20 01/08/20 01/09/20 23:59 23:59 23:59 23:59 Intake Total 1474 Balance 1474 - Lab Results Fish Bones: 01/07/20 12:00 01/07/20 13:20
[2020-01-09] MEDS: LACTATED RINGERS 1,000 ML IV SCH ×2 (10:37→20:54)
[2020-01-09] MEDS: OXYTOCIN/SODIUM CHLORIDE 500 ML IV SCH ×2 (10:37→11:02)
[2020-01-09] MEDS ORDERED: CITRIC ACID/SODIUM CITRATE 15 ML UDC PO ONE ×2 (11:52→11:57)
--- NOTE | 2020-01-09 13:41 | PROVIDER PROGRESS NOTE ---
Subjective - Subjective Subjective: AROM clear and copious with double set-up in OR and fundal pressure and performed during a contraction. Uncomplicated. On pitocin now. Hope for cervical change. reassuring wellbeing. Objective - Vital Signs/Intake & Output Intake & Output: Intake & Output 01/06/20 01/07/20 01/08/20 01/09/20 23:59 23:59 23:59 23:59 Intake Total 1474 0 Balance 1474 0 - Lab Results Fish Bones: 01/07/20 12:00 01/07/20 13:20
[2020-01-09] MEDS ORDERED: ROPIVACAINE 0.2% 200 MG/100 ML BAG EP ONE ×2 (15:23→20:28)
[2020-01-09] MEDS ORDERED: diphenhydrAMINE INJ 50 MG/ML VIAL IVP PRN (15:51)
[2020-01-09] MEDS ORDERED: NALOXONE 0.4 MG/ML VIAL IVP PRN (15:51)
[2020-01-09] MEDS ORDERED: NALBUPHINE 10 MG/ML AMP IVP PRN (15:51)
[2020-01-09] MEDS ORDERED: ePHEDrine 50 MG/ML VIAL IVP PRN (15:51)
[2020-01-09] MEDS ORDERED: METOCLOPRAMIDE 10 MG/2 ML VIAL IVP PRN (15:51)
[2020-01-09] MEDS ORDERED: ROPIVACAINE 0.2% 200 MG/100 ML BAG EP PRN (15:51)
[2020-01-09] MEDS ORDERED: ONDANSETRON 4 MG/2 ML VIAL IVP PRN (15:51)
[2020-01-09] MEDS ORDERED: LACTATED RINGERS 500 ML IV ONE (16:00)
[2020-01-09] MEDS ORDERED: fentaNYL 100 MCG/2 ML VIAL ONE (16:19)
--- NOTE | 2020-01-09 16:21 | ANESTHESIA PROCEDURE NOTE ---
Anesthesia Epidural Template - Patient Report Patient Reports: positive: Inadequate control (sensory T-10@R, T-12/L1 at left and pt c/o new sharp pain at left with contractions.) - Plan Plan: positive: Other (Bolus 8cc 1%Lidocaine with 100mcg Fentanyl with pt lying on Left side. Awaiting relief for pina placement. Will continue to assess.)
--- NOTE | 2020-01-09 16:44 | PROVIDER PROGRESS NOTE ---
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 Objective - Vital Signs/Intake & Output Intake & Output: Intake & Output 01/06/20 01/07/20 01/08/20 01/09/20 23:59 23:59 23:59 23:59 Intake Total 1474 0 Balance 1474 0 - Lab Results Fish Bones: 01/07/20 12:00 01/07/20 13:20
--- NOTE | 2020-01-09 17:16 | ANESTHESIA PROCEDURE NOTE ---
Anesthesia Epidural Template - Patient Report Patient Reports: positive: Pain controlled (Pt sitting up in bed, smiling, watching TV.Slight pressure with contractions at left, not painful. VSS. Converted epidural to PCEA 4mg q10 if needed.)
[2020-01-09] MEDS: HYDROCORTISONE 1% CREAM 28 GM TUBE TOP SCH ×2 (18:05→18:07)
[2020-01-09] MEDS: SODIUM CHLORIDE FLUSH 0.9% 10 ML SYRINGE IVP SCH ×4 (18:06→18:09)
--- NOTE | 2020-01-09 20:23 | ANESTHESIA PROCEDURE NOTE ---
Anesthesia Epidural Template - Patient Report Patient Reports: positive: Inadequate control (L sided hot spot has returned after full dilation and increased contractions. T-10 sensory present, B LE heavy. Epidural dosed with 10cc 1% Lidocaine. Pt repositoned on to far left per her request for comfort. Pump remains at 12cc q50. Pt states relief of pain after 10 mins) - Plan Plan: positive: Continue current management
[2020-01-09] MEDS ORDERED: FAMOTIDINE 20 MG/2 ML SYRINGE IVP PRN (22:15)
[2020-01-09] MEDS: METHYLERGONOVINE 0.2 MG/ML VIAL IM PRN (23:58)
[2020-01-10] MEDS: METHYLERGONOVINE 0.2 MG/ML VIAL IM PRN (00:33)
[2020-01-10] MEDS ORDERED: LIDOCAINE MPF 2%-EPI 1:200000 10 ML VIAL IM ONE (00:42)
[2020-01-10] MEDS ORDERED: MIDAZOLAM 2 MG/2 ML VIAL IVP ONE (00:42)
[2020-01-10] MEDS ORDERED: PROPOFOL 200 MG/20 ML VIAL IVP ONE (00:42)
[2020-01-10] MEDS ORDERED: KETAMINE 500 MG/10 ML VIAL IVP ONE (00:42)
[2020-01-10] MEDS ORDERED: ONDANSETRON ODT 4 MG TABLET TL PRN (01:47)
[2020-01-10] MEDS ORDERED: HYDROCORTISONE 1% CREAM 28 GM TUBE PR PRN (01:47)
[2020-01-10] MEDS ORDERED: diphenhydrAMINE 25 MG CAPSULE PO PRN (01:47)
[2020-01-10] MEDS ORDERED: SIMETHICONE CHEW 80 MG TABLET PO PRN (01:47)
[2020-01-10] MEDS ORDERED: ATROPINE ABBOJECT 1 MG/10 ML SYRINGE IVP PRN (01:51)
[2020-01-10] MEDS ORDERED: ePHEDrine 50 MG/ML VIAL IVP PRN (01:51)
[2020-01-10] MEDS ORDERED: NALOXONE 0.4 MG/ML VIAL IVP PRN (01:51)
[2020-01-10] MEDS ORDERED: fentaNYL 100 MCG/2 ML VIAL IVP PRN (01:51)
[2020-01-10] MEDS ORDERED: MORPHINE 2 MG/ML CARPUJECT IVP PRN (01:51)
[2020-01-10] MEDS ORDERED: LANOLIN 7 GM OINTMENT TOP PRN (01:51)
[2020-01-10] MEDS ORDERED: ONDANSETRON 4 MG/2 ML VIAL IVP PRN (01:51)
--- NOTE | 2020-01-10 01:53 | ANESTHESIA POST OP EVALUATION ---
Anesthesia Post Eval - Post Anesthesia Eval Vitals: Last Vital Signs Temp 37.1 C 01/10/20 01:44 Pulse 85 01/10/20 01:44 Resp 18 01/10/20 01:44 BP 137/84 H 01/10/20 01:44 Pulse Ox 99 01/09/20 01:36 CV Function Including HR & BP: positive: Stable Pain Control: positive: Satisfactory Nausea & Vomiting: positive: Negative Mental Status: positive: Baseline Respiratory Status: Airway Patent Hydration Status: Satisfactory
[2020-01-10] MEDS ORDERED: LACTATED RINGERS 1,000 ML IV SCH ×2 (02:00)
[2020-01-10] MEDS ORDERED: diphenhydrAMINE INJ 50 MG/ML VIAL IVP PRN (02:06)
[2020-01-10] MEDS ORDERED: ACETAMINOPHEN 1,000 MG/100 ML 100 ML IV ONE (02:06)
--- NOTE | 2020-01-10 02:20 | PROVIDER PROGRESS NOTE ---
Subjective - Subjective Subjective: Patient developed a fever 5min after starting her 1st unit of PRBC. No other distress. Tylenol and benadryl now. Transfusion stopped. Patient's vitals are stable--HR 99, BP normal. Her color is better and her UOP is excellent. Will hold on any blood products for now and will reevaluate based on VS, ambulation, and CBC. Objective - Vital Signs/Intake & Output Vital Signs: Vital Signs x48h Temp Pulse Resp BP 01/10/20 02:10 83 20 127/79 01/10/20 02:05 100.6 F H 75 20 133/76 H 01/10/20 02:00 100.9 F H 77 18 132/75 H 01/10/20 01:44 98.8 F 85 18 137/84 H Intake & Output: Intake & Output 01/07/20 01/08/20 01/09/20 01/10/20 23:59 23:59 23:59 23:59 Intake Total 1474 1000 20 Output Total 275 Balance 1474 725 20 - Lab Results Fish Bones: 01/07/20 12:00 01/07/20 13:20 Other Labs: Lab Results x24hrs 01/10/20 01/10/20 Range/Units 00:30 00:30 Blood Type A NEGATIVE A NEGATIVE Antibody Screen NEGATIVE Crossmatch IS Only See Detail
[2020-01-10] MEDS ORDERED: OXYTOCIN/SODIUM CHLORIDE 500 ML IV PRN (02:24)
[2020-01-10] MEDS: IBUPROFEN 600 MG TABLET PO SCH ×3 (05:41→18:25)
[2020-01-10] MEDS: HYDROmorphone 0.5 MG/0.5 ML SYRINGE IVP PRN ×2 (05:48→17:27)
--- NOTE | 2020-01-10 06:39 | OPERATIVE REPORT ---
DATE OF SERVICE: 01/10/2020 Physician: Sheridan Hawkins MD PREOPERATIVE DIAGNOSIS: hemorrhage. POSTOPERATIVE DIAGNOSIS: hemorrhage. PROCEDURE PERFORMED: Suction dilation and curettage and placement of a Bakri balloon. SURGEON: Sheridan Hawkins MD WOODWORKING SHOP HAND: None. ANESTHESIA: Epidural and MAC. ESTIMATED BLOOD LOSS INTRAOPERATIVE: 50 mL. TOTAL EBL: 1300 mL. INTRAVENOUS FLUIDS: 500 mL. URINE OUTPUT: 260 mL, clear. COUNTS: Correct x2. COMPLICATIONS: None apparent. DISPOSITION: Stable to recovery room. PROPHYLAXIS: Sequential compression devices to bilateral lower extremities. SPECIMENS: None. COUNSELING: The patient had just had a spontaneous vaginal delivery and had a hemorrhage of unknown etiology in her delivery room. She lost 1200 mL there and received uterotonics but persist ed in having a slow trickle of bleeding and so the decision was made to do an emergent D-and-C. The patient was verbally consented for this. We verbally reviewed the risks of surgery including but not limited to bleeding, infection, trauma to local organs and anesthesia complications. DESCRIPTION OF PROCEDURE: The patient was brought to the operating room, where she was placed in low lithotomy in [facility]. Her epidural was bolused and she received her sedation. She was pr epped and draped in the usual sterile fashion. A Rush catheter was placed. A speculum was placed a nd the cervix was grasped with a ring forceps. The cervix did not appear to have any lacerations. T here were no occult lacerations or bleeding in the lower genital tract. A D-and-C was performed with a 10 mm suction curette with no products of conception removed. A Bakri balloon was then placed in the uterine cavity and inflated with 240 mL of saline. Her fundus was firm and 2 cm below the umbili cus prior to the Bakri placement after it was at the umbilicus. The patient had a post-procedure ult rasound that revealed an empty uterus except for the Bakri balloon in the lower uterine segment. TD: 01/10/2020 01:59
--- NOTE | 2020-01-10 06:45 | OPERATIVE REPORT ---
DATE OF SERVICE: 01/09/2020 Physician: Sheridan Hawknis MD PREDELIVERY DIAGNOSES 1. Intrauterine at 38 weeks. 2. Crohn disease flare. POSTDELIVERY DIAGNOSES 1. Status post spontaneous vaginal delivery. 2. hemorrhage. 3. Avulsion of the left labia minora and a left vaginal sulcal laceration. PHYSICIAN: Sheridan Hawkins MD VIDEOGRAPHER: None. ANESTHESIA: Epidural and then lidocaine for the laceration repair. ESTIMATED BLOOD LOSS: 1200 mL COUNTS: Correct. DISPOSITION: To the operating room. FINDINGS: Liveborn male, Apgars 9 and 10. Weight is pending. Clear amniotic fluid. LABOR COURSE: The patient was admitted for an induction of labor due to a Crohn flare. It was a long induction with a cervical ripening balloon, followed by Pitocin, followed by misoprostol, followed by Pitocin. Her tracing was reassuring throughout her labor and, once she had an artificial rupture of membranes, she experienced excellent cervical change. She progressed to complete. SECOND STAGE: The patient pushed effectively for about 2 hours to deliver OA, over an intact perineum. There was a double nuchal cord that was easily reduced. The shoulders and body were easily delivered, and the baby was placed on mom's abdomen for warming, drying and stimulation. The cord was left intact until it stopped pulsating. Then, it was clamped x2 and cut. Cord blood was obtained. The cord was then drained. During the period of time prior to the placental delivery, patient was having a fair amount of bleeding. This evolved into a hemorrhage. Patient had good fundal tone throughout the hemorrhage. Part of the hemorrhage was due to the left vaginal sulcal laceration. The other component of the hemorrhage is placental site bleeding. She received 2 doses of Methergine, 1 dose of Hemabate, 1 dose of Cytotec, and continuous with Pitocin. She received a second IV, and a type and cross was performed. The hemorrhage was slow and steady, and so, while it was being managed, I repaired her laceration. Before that, the placenta delivered spontaneously and intact with a 3-vessel cord. It appeared normal. During the hemorrhage. I did do an ultrasound that revealed blood in the uterus and some shag in the endometrium, consistent with possible retained products of conception, but it did not have the classic appearance for this. The patient did have a similar appearance of her ultrasound following the D and C. Her sulcal laceration was oversewn with 2 [id number] of 2-0 Vicryl, with excellent hemostasis resulting. She had her left labia minora reapproximated with interrupted sutures of 4-0 Vicryl, with yarsanism of normal anatomy. As her bleeding is an ongoing, steady trickle and she may have retained products and she needs an examination of her cervix to rule out laceration, the decision was made to bring her to the operating room for a D and C. This procedure was uncomplicated and a Bakri was placed. She will receive 1 unit of blood in her recovery room and then we will recheck her blood count in the morning. TD: 01/10/2020 02:07 ROLANDO
[2020-01-10 07:09] LABS: BASOPHILS % (AUTO) 0.3 %; HGB - HEMOGLOBIN 9.5 g/dL (12.0-16.0); LYMPHOCYTES % (AUTO) 7.5 %; MEAN CORPUSCULAR HEMOGLOBIN 27.1 pg (27.0-31.0); MEAN CORPUSCULAR HGB CONC 32.3 g/dL (32.0-36.0); MEAN PLATELET VOLUME 11.1 fL (7.9-10.8); NEUTROPHILS % (AUTO) 86.4 %; PLT - PLATELET COUNT 167 10^3/uL (130-450); RED CELL DISTRIBUTION WIDTH 13.1 % (12.0-15.0); WHITE BLOOD COUNT 20.3 x10^3/uL (4.8-10.8)
[2020-01-10 07:39] LABS: ABNORMAL LYMPHS % (MANUAL) 0 %
[2020-01-10 07:44] LABS: BAND NEUTROPHILS % (MANUAL) 6 %; LYMPHOCYTES % (MANUAL) 5 %; METAMYELOCYTES % (MANUAL) 1 %; MONOCYTES # (MANUAL) 0.4 10^3/uL (0.0-1.0)
[2020-01-10 07:46] LABS: PLATELET ESTIMATE, MANUAL NORMAL (130-450,000) (NORMAL); PLATELET MORPHOLOGY NORMAL APPEARANCE (NORMAL); RBC MORPHOLOGY (MULTIPLE) NORMAL APPEARANCE (NORMAL)
[2020-01-10 07:47] LABS: DIFFERENTIAL COMMENT MANUAL DIFFERENTIAL
--- NOTE | 2020-01-10 08:50 | PROVIDER PROGRESS NOTE ---
Subjective - Subjective Subjective: Eating, ambulating, latching well. Feels pretty well overall. Some vulvar discomfort. AVSS, excellent UOP Alert, cuddling baby, good skin color, NAD Abd soft, nt/nd Fundus firm, NT, at umbilicus Trace LE edema bilat Hct 29 34yo P1 PPD#0 s/p at term, long IOL for crohn's flare, 1200cc PPH, bakri in situ. No further heavy bleeding and tolerating anemia well. Will remove an IV and her pina. Plan to deflate bakri later today. Otherwise routine care. Objective - Vital Signs/Intake & Output Vital Signs: Vital Signs x48h Temp Pulse Pulse Resp BP BP Pulse Ox 01/10/20 05:24 98.4 F 75 16 101/58 L 96 01/10/20 04:58 99.3 F 01/10/20 04:30 85 18 110/67 01/10/20 04:00 75 16 119/74 01/10/20 03:30 76 20 130/69 100 01/10/20 03:00 77 18 122/73 100 01/10/20 02:45 82 18 121/70 98 01/10/20 02:32 98.2 F 81 18 119/92 H 99 01/10/20 02:20 99.5 F 97 20 134/74 H 01/10/20 02:15 83 23 127/79 95 01/10/20 02:10 101.7 F H 76 21 133/76 H 97 01/10/20 02:05 100.9 F H 78 26 H 132/75 H 97 01/10/20 02:00 100.9 F H 84 26 H 127/79 97 01/10/20 01:55 80 80 H 133/75 H 96 01/10/20 01:50 98.8 F 81 22 137/84 H 98 01/10/20 01:44 98.8 F 85 18 137/84 H Intake & Output: Intake & Output 01/07/20 01/08/20 01/09/20 01/10/20 23:59 23:59 23:59 23:59 Intake Total 1474 1000 730 Output Total 275 1115 Balance 1474 725 -385 - Lab Results Fish Bones: 01/10/20 07:01 01/07/20 13:20 Other Labs: Lab Results x24hrs 01/10/20 01/10/20 01/10/20 Range/Units 07:01 07:01 00:30 WBC 20.3 H (4.8-10.8) x10^3/uL RBC 3.50 L (4.20-5.40) 10^6/uL Hgb 9.5 L (12.0-16.0) g/dL Hct 29.4 L (37.0-47.0) % MCV 84.0 (81.0-99.0) fL MCH 27.1 (27.0-31.0) pg MCHC 32.3 (32.0-36.0) g/dL RDW 13.1 (12.0-15.0) % Plt Count 167 (130-450) 10^3/uL MPV 11.1 H (7.9-10.8) fL Neut # (Auto) Not Reportable Lymph # (Auto) Not Reportable Mora # (Auto) Not Reportable Eos # (Auto) Not Reportable Baso # (Auto) Not Reportable Absolute Nucleated RBC Not Reportable Total Counted 100 Band Neuts % (Manual) 6 (0 - 10) % Abnorm Lymph % (Manual) 0 % Metamyelocytes % 1 H ( - 0) % Nucleated RBC % Not Reportable Neutrophils # (Manual) 18.7 H (1.5-6.6) 10^3/uL Lymphocytes # (Manual) 1.0 L (1.5-3.5) 10^3/uL Monocytes # (Manual) 0.4 (0.0-1.0) 10^3/uL Eosinophils # (Manual) 0.0 (0-0.7) 10^3/uL Basophils # (Manual) 0.0 (0-0.1) 10^3/uL Differential Comment MANUAL DIFFERENTIAL WBC Morphology 1+ TOXIC GRANULATION (NORMAL) Platelet Estimate NORMAL (130-450,000) (NORMAL) Platelet Morphology NORMAL APPEARANCE (NORMAL) RBC Morph Micro Appear NORMAL APPEARANCE (NORMAL) Blood Type A NEGATIVE A NEGATIVE Antibody Screen Crossmatch IS Only 01/10/20 Range/Units 00:30 WBC (4.8-10.8) x10^3/uL RBC (4.20-5.40) 10^6/uL Hgb (12.0-16.0) g/dL Hct (37.0-47.0) % MCV (81.0-99.0) fL MCH (27.0-31.0) pg MCHC (32.0-36.0) g/dL RDW (12.0-15.0) % Plt Count (130-450) 10^3/uL MPV (7.9-10.8) fL Neut # (Auto) Lymph # (Auto) Mora # (Auto) Eos # (Auto) Baso # (Auto) Absolute Nucleated RBC Total Counted Band Neuts % (Manual) (0 - 10) % Abnorm Lymph % (Manual) % Metamyelocytes % ( - 0) % Nucleated RBC % Neutrophils # (Manual) (1.5-6.6) 10^3/uL Lymphocytes # (Manual) (1.5-3.5) 10^3/uL Monocytes # (Manual) (0.0-1.0) 10^3/uL Eosinophils # (Manual) (0-0.7) 10^3/uL Basophils # (Manual) (0-0.1) 10^3/uL Differential Comment WBC Morphology (NORMAL) Platelet Estimate (NORMAL) Platelet Morphology (NORMAL) RBC Morph Micro Appear (NORMAL) Blood Type A NEGATIVE Antibody Screen NEGATIVE Crossmatch IS Only See Detail
[2020-01-10] MEDS: ACETAMINOPHEN 325 MG TABLET PO PRN ×2 (09:23→16:25)
[2020-01-10] MEDS: DOCUSATE SODIUM 100 MG CAPSULE PO SCH ×2 (09:24→20:58)
--- NOTE | 2020-01-10 13:04 | PROVIDER PROGRESS NOTE ---
Subjective - Subjective Subjective: Bleeding is stable. 80cc out of the 240cc fluid in the bakri was removed. Tolerated well, no uptick in bleeding. Will deflate more later this evening. Objective - Vital Signs/Intake & Output Vital Signs: Vital Signs x48h Temp Pulse Resp BP Pulse Ox 01/10/20 11:37 98.1 F 81 16 105/61 96 01/10/20 07:45 98.2 F 75 17 100/63 99 01/10/20 05:24 98.4 F 75 16 101/58 L 96 Intake & Output: Intake & Output 01/07/20 01/08/20 01/09/20 01/10/20 23:59 23:59 23:59 23:59 Intake Total 1474 1000 1730 Output Total 275 1565 Balance 1474 725 165 - Lab Results Fish Bones: 01/10/20 07:01 01/07/20 13:20 Other Labs: Lab Results x24hrs 01/10/20 01/10/20 01/10/20 Range/Units 07:01 07:01 00:30 WBC 20.3 H (4.8-10.8) x10^3/uL RBC 3.50 L (4.20-5.40) 10^6/uL Hgb 9.5 L (12.0-16.0) g/dL Hct 29.4 L (37.0-47.0) % MCV 84.0 (81.0-99.0) fL MCH 27.1 (27.0-31.0) pg MCHC 32.3 (32.0-36.0) g/dL RDW 13.1 (12.0-15.0) % Plt Count 167 (130-450) 10^3/uL MPV 11.1 H (7.9-10.8) fL Neut # (Auto) Not Reportable Lymph # (Auto) Not Reportable Kerr # (Auto) Not Reportable Eos # (Auto) Not Reportable Baso # (Auto) Not Reportable Absolute Nucleated RBC Not Reportable Total Counted 100 Band Neuts % (Manual) 6 (0 - 10) % Abnorm Lymph % (Manual) 0 % Metamyelocytes % 1 H ( - 0) % Nucleated RBC % Not Reportable Neutrophils # (Manual) 18.7 H (1.5-6.6) 10^3/uL Lymphocytes # (Manual) 1.0 L (1.5-3.5) 10^3/uL Monocytes # (Manual) 0.4 (0.0-1.0) 10^3/uL Eosinophils # (Manual) 0.0 (0-0.7) 10^3/uL Basophils # (Manual) 0.0 (0-0.1) 10^3/uL Differential Comment MANUAL DIFFERENTIAL WBC Morphology 1+ TOXIC GRANULATION (NORMAL) Platelet Estimate NORMAL (130-450,000) (NORMAL) Platelet Morphology NORMAL APPEARANCE (NORMAL) RBC Morph Micro Appear NORMAL APPEARANCE (NORMAL) Blood Type A NEGATIVE A NEGATIVE Weak D (Du) WEAK-D NEGATIVE Antibody Screen ALTA, IgG Specific Not Reportable ALTA, Polyspecific NEGATIVE ALTA, C3d Specific Not Reportable Maternal Bleed NEGATIVE (NEGATIVE) Crossmatch IS Only 01/10/20 01/07/20 Range/Units 00:30 12:00 WBC (4.8-10.8) x10^3/uL RBC (4.20-5.40) 10^6/uL Hgb (12.0-16.0) g/dL Hct (37.0-47.0) % MCV (81.0-99.0) fL MCH (27.0-31.0) pg MCHC (32.0-36.0) g/dL RDW (12.0-15.0) % Plt Count (130-450) 10^3/uL MPV (7.9-10.8) fL Neut # (Auto) Lymph # (Auto) Kerr # (Auto) Eos # (Auto) Baso # (Auto) Absolute Nucleated RBC Total Counted Band Neuts % (Manual) (0 - 10) % Abnorm Lymph % (Manual) % Metamyelocytes % ( - 0) % Nucleated RBC % Neutrophils # (Manual) (1.5-6.6) 10^3/uL Lymphocytes # (Manual) (1.5-3.5) 10^3/uL Monocytes # (Manual) (0.0-1.0) 10^3/uL Eosinophils # (Manual) (0-0.7) 10^3/uL Basophils # (Manual) (0-0.1) 10^3/uL Differential Comment WBC Morphology (NORMAL) Platelet Estimate (NORMAL) Platelet Morphology (NORMAL) RBC Morph Micro Appear (NORMAL) Blood Type A NEGATIVE A NEGATIVE Weak D (Du) Antibody Screen NEGATIVE NEGATIVE ALTA, IgG Specific Not Reportable Not Reportable ALTA, Polyspecific NEGATIVE NEGATIVE ALTA, C3d Specific Not Reportable Not Reportable Maternal Bleed (NEGATIVE) Crossmatch IS Only See Detail
--- NOTE | 2020-01-10 17:26 | PROVIDER PROGRESS NOTE ---
Subjective - Subjective Subjective: No new problems, no uptick in bleeding since partial deflation of balloon. Bakri drained and entire catheter removed. Tolerated well, will watch VB. Objective - Vital Signs/Intake & Output Vital Signs: Vital Signs x48h Temp Pulse Resp BP Pulse Ox 01/10/20 16:20 98.2 F 64 16 97/56 L 100 01/10/20 11:37 98.1 F 81 16 105/61 96 Intake & Output: Intake & Output 01/07/20 01/08/20 01/09/20 01/10/20 23:59 23:59 23:59 23:59 Intake Total 1474 1000 1730 Output Total 275 2165 Balance 1474 725 -435 - Lab Results Fish Bones: 01/10/20 07:01 01/07/20 13:20 Other Labs: Lab Results x24hrs 01/10/20 01/10/20 01/10/20 Range/Units 07:01 07:01 00:30 WBC 20.3 H (4.8-10.8) x10^3/uL RBC 3.50 L (4.20-5.40) 10^6/uL Hgb 9.5 L (12.0-16.0) g/dL Hct 29.4 L (37.0-47.0) % MCV 84.0 (81.0-99.0) fL MCH 27.1 (27.0-31.0) pg MCHC 32.3 (32.0-36.0) g/dL RDW 13.1 (12.0-15.0) % Plt Count 167 (130-450) 10^3/uL MPV 11.1 H (7.9-10.8) fL Neut # (Auto) Not Reportable Lymph # (Auto) Not Reportable [place]kes # (Auto) Not Reportable Eos # (Auto) Not Reportable Baso # (Auto) Not Reportable Absolute Nucleated RBC Not Reportable Total Counted 100 Band Neuts % (Manual) 6 (0 - 10) % Abnorm Lymph % (Manual) 0 % Metamyelocytes % 1 H ( - 0) % Nucleated RBC % Not Reportable Neutrophils # (Manual) 18.7 H (1.5-6.6) 10^3/uL Lymphocytes # (Manual) 1.0 L (1.5-3.5) 10^3/uL Monocytes # (Manual) 0.4 (0.0-1.0) 10^3/uL Eosinophils # (Manual) 0.0 (0-0.7) 10^3/uL Basophils # (Manual) 0.0 (0-0.1) 10^3/uL Differential Comment MANUAL DIFFERENTIAL WBC Morphology 1+ TOXIC GRANULATION (NORMAL) Platelet Estimate NORMAL (130-450,000) (NORMAL) Platelet Morphology NORMAL APPEARANCE (NORMAL) RBC Morph Micro Appear NORMAL APPEARANCE (NORMAL) Blood Type A NEGATIVE A NEGATIVE Weak D (Du) WEAK-D NEGATIVE Antibody Screen ALTA, IgG Specific Not Reportable ALTA, Polyspecific NEGATIVE ALTA, C3d Specific Not Reportable Maternal Bleed NEGATIVE (NEGATIVE) Crossmatch IS Only 01/10/20 01/07/20 Range/Units 00:30 12:00 WBC (4.8-10.8) x10^3/uL RBC (4.20-5.40) 10^6/uL Hgb (12.0-16.0) g/dL Hct (37.0-47.0) % MCV (81.0-99.0) fL MCH (27.0-31.0) pg MCHC (32.0-36.0) g/dL RDW (12.0-15.0) % Plt Count (130-450) 10^3/uL MPV (7.9-10.8) fL Neut # (Auto) Lymph # (Auto) Wilkes # (Auto) Eos # (Auto) Baso # (Auto) Absolute Nucleated RBC Total Counted Band Neuts % (Manual) (0 - 10) % Abnorm Lymph % (Manual) % Metamyelocytes % ( - 0) % Nucleated RBC % Neutrophils # (Manual) (1.5-6.6) 10^3/uL Lymphocytes # (Manual) (1.5-3.5) 10^3/uL Monocytes # (Manual) (0.0-1.0) 10^3/uL Eosinophils # (Manual) (0-0.7) 10^3/uL Basophils # (Manual) (0-0.1) 10^3/uL Differential Comment WBC Morphology (NORMAL) Platelet Estimate (NORMAL) Platelet Morphology (NORMAL) RBC Morph Micro Appear (NORMAL) Blood Type A NEGATIVE A NEGATIVE Weak D (Du) Antibody Screen NEGATIVE NEGATIVE ALTA, IgG Specific Not Reportable Not Reportable ALTA, Polyspecific NEGATIVE NEGATIVE ALTA, C3d Specific Not Reportable Not Reportable Maternal Bleed (NEGATIVE) Crossmatch IS Only See Detail
[2020-01-10] MEDS ORDERED: RHO(D) IMMUNE GLOBULIN 300 MCG SYRINGE IM ONE (19:28)
[2020-01-11] MEDS: IBUPROFEN 600 MG TABLET PO SCH ×2 (00:16→06:10)
[2020-01-11] MEDS: ACETAMINOPHEN 325 MG TABLET PO PRN ×2 (00:17→06:12)
[2020-01-11 12:05] VITALS: BP 111/64
--- NOTE | 2020-01-11 14:16 | Discharge Plan ---
Discharge Plan Problem Reviewed?: Yes Disposition: Home, Self Care Condition: Good Diet: Regular Activity Restrictions: vaginal rest x6w Shower Restrictions: No Driving Restrictions: No No Smoking: If you smoke, Please STOP! Call for help. Follow-up with: Sheridan Hawkins MD [Provider Admit Priv/Credential] -
--- NOTE | 2020-01-11 15:55 | DISCHARGE SUMMARY ---
Physician: Sheridan Hawkins MD DATE OF ADMISSION: 01/07/2020 DATE OF DISCHARGE: 01/11/2020 ADMISSION DIAGNOSES 1. Intrauterine at 38 weeks. 2. Crohn's disease with an active flare. DISCHARGE DIAGNOSES 1. Status post spontaneous vaginal delivery at term. 2. hemorrhage. 3. Allergic blood transfusion reaction. OPERATIONS/PROCEDURES 1. Spontaneous vaginal delivery on 01/09/2020. 2. Dilation and curettage on 01/10/2020. HOSPITAL COURSE: The patient was admitted for induction of labor due to her Crohn's flare at term. She received Pitocin and misoprostol, and then Pitocin and AROM. The patient progressed to complete and pushed effectively to deliver within about 2 hours. She had a lot of problems with hot spots of uncovered pain with her epidural. She had an avulsion of her left labia minora that took some time to repair, and she did not tell me that she was feeling poking pain with this, even though I asked her to. She then had a hemorrhage and then the D and C. The entire experience was rather traumatizing for her because of the ongoing pain. She has undergone debriefing with all the nurses and doctors involved and feels like she has a good understanding of her . She does plan to have another child soon. Her hemorrhage was due to a vaginal focal bleed and placental site bleeding. She never had atony. Her hemorrhage was managed by Hemabate, oxytocin, Methergine, misoprostol, D and C, and a Bakri balloon. Her total EBL was around 1200 mL. Her Bakri was deflated the following day with no heavy bleeding following this. Her post-bleed hematocrit was 29, but this is likely before she collaborated. She also had an allergic REACTION TO BLOOD. The patient has been significantly anemic in the past with her Crohn disease, and she felt extremely anemic and was asking for blood while on her way to the operating room for the D and C. As her bleeding was ongoing and was over a liter, this was very reasonable, and so a blood transfusion was started; however, 5 minutes into the transfusion, her temperature had increase by 1 degree Celsius and so her transfusion was stopped. Due to her normal vital signs at the time, the transfusion was abandoned. She tolerated her anemia well and did not require transfusion in the future. She will be discharged with iron. By day #2, she was requesting discharge home. She was eating, ambulating, and urinating without difficulty. She was well with a good latch. Her mood was a bit labile, she was upset because of her baby not passing a hearing test, but she was appropriate and coping well. She did not have any heavy bleeding. She was tolerating her cramping and vulvar pain well. Her Crohn's flare felt improved after her dose of Stelara. DISCHARGE EXAMINATION: Afebrile with normal vital signs. Alert and smiling, and in no apparent distress. Her abdomen was soft, nontender, and nondistended. Fundus firm and at the umbilicus. No lower extremity clubbing, cyanosis, or edema. DISCHARGE DISPOSITION: Home. CONDITION: Good. PLAN: Follow up in [address] Hawkins. MEDICATIONS: Start iron; otherwise, continue home medications. TD: 01/11/2020 14:27 ROLANDO
--- NOTE | 2020-01-11 15:58 | Labor Flowsheet ---
Labor Flowsheet Datetime Report Generated by CPN: 01/11/2020 15:58 Datetime: 01/11/2020 11:56 VITAL SIGNS NBP Sys/Rosibel/Mean (mmHg): 111 : 64 : 75 Pulse: 74 LaborFlag: Labor Datetime: 01/10/2020 05:25 SpO2 (%): 96 Datetime: 01/09/2020 23:36 Stage 2 Comments: Viable baby boy born @ 2335 Datetime: 01/09/2020 23:30 UTERINE ACTIVITY Monitor Mode: External Frequency (min): 2-5 Quality: Strong Duration (sec): 60-130 Pattern: Normal: <= 5 Contractions in 10 Minutes Resting Tone (Palpate): Relaxed Pitocin Checklist: No More than 1 Late Deceleration Occurred in Past 30 Minutes; No More than 5 [place] rine Contractions in 10 Minutes for any 20 Minute Interval; Uterus Palpates Soft between Contractions ASSESSMENT A Monitor Mode: Telemetry FHR Baseline Rate : 145 Variability: Moderate 6-25 bpm Accelerations: None Decelerations: Late; Variable Category: Category II Oxygen Method: Room Air Datetime: 01/09/2020 23:15 Comments: pt pushing Datetime: 01/09/2020 23:05 MEDICATIONS Pitocin (milliunits): Increased to @ 11 Datetime: 01/09/2020 22:58 Temperature (C): 37.0 Datetime: 01/09/2020 22:45 Pushing Position: Pushing with Contractions Pushing Progress: Descent with Pushing Datetime: 01/09/2020 22:15 Actions for Decelerations: Other STAGE 2 Pushing: Coached on Pushing Datetime: 01/09/2020 21:33 COMMUNICATION Communication: Call/Page Placed to Provider Communication Comments: SHEETER OPERATOR called per pt request- will be in shortly. Datetime: 01/09/2020 21:20 Monitor Interventions for FHR: Ultrasound Adjusted Patient Position/Activity: Right Lateral Patient Care Comments: pillows in between legs Datetime: 01/09/2020 19:58 Provider Notified (Name): Shruthi Notification Reason: Status Update; Uterine Activity; Pain Datetime: 01/09/2020 19:19 Pain Presence: Intermittent Pain Type: Contraction Pain Location: Abdomen Pain Assessment Comments: "hot spot" L hip. and upper L abdomen feeling uncomfortable MATERNAL ASSESSMENT Level of Consciousness: Alert Headache: Denies Breath Sounds, Left: Clear and Equal Breath Sounds, Right: Clear and Equal Nausea/Vomiting: Denies RUQ Epigastric Pain: Denies Datetime: 01/09/2020 18:49 VAGINAL EXAM Dilatation (cm): 10.0 Effacement (%): 100 Station: -1 Exam by: Reyna EVANS/Natalia RN Datetime: 01/09/2020 17:59 Anesthesia Level Check: T9 Anesthesia Comments: hot spot left side 4/10 Datetime: 01/09/2020 17:53 Monitor Interventions for UA: [place] Adjusted Datetime: 01/09/2020 16:30 Contraction Comments: toco not tracing well, RN at bedside Datetime: 01/09/2020 16:21 Vaginal Bleeding: Scant Cervix, Position: Midposition Datetime: 01/09/2020 16:20 I/O Interventions: Rush Cath Inserted Datetime: 01/09/2020 15:45 Epidural Procedure: Completed Epidural Procedure Other: Pump Started Datetime: 01/09/2020 15:22 PROCEDURE TIME OUT Procedure Verify: Correct Patient Identity; Correct Side and Site are Marked; Accurate Procedure Co nsent Form; Agreement on Procedure to be Done; Correct Patient Position; Relevant Images and Results are Properly Labeled and Displayed; Addressed Need to Administer Antibiotics or Fluids for Irrigation ; Safety Precautions Based on Patient History or Medication Use ANESTHESIA Anesthesia Plans: Epidural Epidural Positioning: Sitting Datetime: 01/09/2020 13:22 Medication Comments: restarted at 2 units Datetime: 01/09/2020 12:14 Hygiene: Underpad Changed Datetime: 01/09/2020 11:56 Membrane Status: Ruptured Membranes Rupture Method: Artificial Amniotic Fluid Color: Clear Amniotic Fluid Amount: Moderate Amniotic Fluid Odor: Normal Membrane Comments: Dr Anaya Datetime: 01/09/2020 09:54 Respirations: 18 Datetime: 01/09/2020 05:09 Cervical Ripening Agents: Cytotec @ Datetime: 01/09/2020 05:04 Vaginal Exam Comments: Ballotable Datetime: 01/09/2020 05:03 DTR's/Clonus: DTRs 2+; No Clonus Datetime: 01/09/2020 05:00 Resting Tone IUP (mmHg): Datetime: 01/09/2020 04:37 Pain Coping: Sleeping Datetime: 01/09/2020 01:41 PAIN Pain Scale: 4 Datetime: 01/09/2020 01:29 PATIENT CARE IV/Blood Work: IV Started Datetime: 01/09/2020 01:26 Vital Sign Comments: IV removed Datetime: 01/08/2020 21:33 TEACHING Instructional Method: Verbal Plan of Care: Plan of Care Discussed; Labor Labor/Induction: Labor Stages; Cervical Ripening; Induction Teaching Comments: Discussed plan of care Datetime: 01/08/2020 19:15 Temperature Route: Oral Datetime: 01/08/2020 17:15 Stage of : Labor Datetime: 01/08/2020 17:03 Provider Reviewed Strip: Yes Datetime: 01/08/2020 08:00 FHR Baseline Changes: No Baseline Change Datetime: 01/08/2020 05:58 Comfort Measures: Breathing/Relaxation Datetime: 01/08/2020 05:30 Vibroacoustic Stim: Datetime: 01/08/2020 00:39 Pain Management: Pain Scale/Goals; Comfort Measures Datetime: 01/07/2020 20:49 Membranes Ruptured Date/Time: 01/09/2020 11:56 Datetime: 01/07/2020 19:49 Cervix, Consistency: Soft
== END 2020-01-11 15:40 | disposition home or self-care (01) | DRG 768 ==
LOC: WFO 10:53 → FBP 10:57 → WFO 13:03 → FBP 13:04 → OBSVTOIN 20:26
PROVIDERS: ADMIT Obstetrics & Gynecology; ATTEND Obstetrics & Gynecology
PROC: 10E0XZZ Delivery of Products of Conception, External Approach (ICD-10-PCS; principal; 2020-01-09)
PROC: 10907ZC Drainage of Amniotic Fluid, Therapeutic from Products of Conception, Via Natural or Artificial Opening (ICD-10-PCS; 2020-01-09)
PROC: 0HQ9XZZ Repair Perineum Skin, External Approach (ICD-10-PCS; 2020-01-09)
PROC: 0UQGXZZ Repair Vagina, External Approach (ICD-10-PCS; 2020-01-09)
PROC: 0W3R7ZZ Control Bleeding in Genitourinary Tract, Via Natural or Artificial Opening (ICD-10-PCS; 2020-01-10)
PROC: 30233N1 Transfusion of Nonautologous Red Blood Cells into Peripheral Vein, Percutaneous Approach (ICD-10-PCS; 2020-01-10)
PROC: 10D07Z6 Extraction of Products of Conception, Vacuum, Via Natural or Artificial Opening (ICD-10-PCS; 2020-01-10)
DX: O99.62 Diseases of the digestive system complicating childbirth (principal); Z37.0 Single live birth; K50.90 Crohn's disease, unspecified, without complications; O70.0 First degree perineal laceration during delivery; O72.1 Other immediate postpartum hemorrhage; O69.81X0 Labor and delivery complicated by cord around neck, without compression, not applicable or unspecified; Z3A.38 38 weeks gestation of pregnancy; R50.9 Fever, unspecified; Y92.238 Other place in hospital as the place of occurrence of the external cause; O99.02 Anemia complicating childbirth; D63.8 Anemia in other chronic diseases classified elsewhere; R50.84 Febrile nonhemolytic transfusion reaction
CPT/HCPCS: 36415; 80053; 83033; 85025; 86850; 86900; 86901; 86920; 87040; 87205; A9270; J0131; J1170; J1200; J2210; J7120; 86880

== ENCOUNTER 2020-01-14 09:47 | Outpatient (CLI) | payer OTHER | END 2020-01-14 10:50 | disposition home or self-care (01) | LOC: WFO 09:47 → FBP 09:49 → WFO 10:50 | PROVIDERS: ATTEND Pediatrics | DX: Z39.1 Encounter for care and examination of lactating mother (principal) | CPT/HCPCS: 99403 ==

== ENCOUNTER 2020-02-20 12:00 | Outpatient (CLI) | payer OTHER ==
[2020-02-20 12:13] LABS: MEAN CORPUSCULAR HEMOGLOBIN 26.3 pg (27.0-31.0); MEAN CORPUSCULAR HGB CONC 31.6 g/dL (32.0-36.0); MEAN CORPUSCULAR VOLUME 83.2 fL (81.0-99.0); MEAN PLATELET VOLUME 10.3 fL (7.9-10.8); RED BLOOD COUNT 4.95 10^6/uL (4.20-5.40); RED CELL DISTRIBUTION WIDTH 13.6 % (12.0-15.0); WHITE BLOOD COUNT 6.7 x10^3/uL (4.8-10.8)
== END 2020-02-20 12:01 | disposition home or self-care (01) ==
LOC: LAB 12:00
PROVIDERS: ATTEND Obstetrics & Gynecology
DX: O72.1 Other immediate postpartum hemorrhage (principal)
CPT/HCPCS: 36415; 85027

== ENCOUNTER 2021-04-27 06:46 | Emergency (ER) | payer OTHER ==
[2021-04-27 08:14] LABS: BILIRUBIN,URINE NEGATIVE (NEGATIVE); GLUCOSE, URINE (UA) NEGATIVE (NEGATIVE); KETONES,URINE (UA) NEGATIVE (NEGATIVE); LEUKOCYTE ESTERASE, URINE SMALL (NEGATIVE); NITRITE,URINE NEGATIVE (NEGATIVE); OCCULT BLOOD,URINE TRACE-LYSE (NEGATIVE); PH,URINE 6.5 PH (5.0-7.5); PROTEIN,URINE NEGATIVE (NEGATIVE); UROBILINOGEN,URINE 0.2 (NORMAL) E.U./dL (NORMAL)
[2021-04-27 08:15] LABS: BASOPHILS # (AUTO) 0.1 10^3/uL (0.0-0.1); BASOPHILS % (AUTO) 0.4 %; EOSINOPHILS # (AUTO) 0.1 10^3/uL (0.0-0.7); HGB - HEMOGLOBIN 14.1 g/dL (12.0-16.0); LYMPHOCYTES # (AUTO) 1.9 10^3/uL (1.5-3.5); LYMPHOCYTES % (AUTO) 16.6 %; MEAN CORPUSCULAR HEMOGLOBIN 28.9 pg (27.0-31.0); MEAN CORPUSCULAR HGB CONC 34.4 g/dL (32.0-36.0); MEAN PLATELET VOLUME 10.2 fL (7.9-10.8); MONOCYTES # (AUTO) 0.5 10^3/uL (0.0-1.0); MONOCYTES % (AUTO) 4.7 %; NEUTROPHILS # (AUTO) 8.9 10^3/uL (1.5-6.6); PLT - PLATELET COUNT 198 10^3/uL (130-450); RED BLOOD COUNT 4.88 10^6/uL (4.20-5.40); RED CELL DISTRIBUTION WIDTH 12.7 % (12.0-15.0); WHITE BLOOD COUNT 11.5 x10^3/uL (4.8-10.8)
[2021-04-27 08:29] LABS: BILIRUBIN,TOTAL 0.6 mg/dL (0.2-1.0); CALCIUM 9.9 mg/dL (8.5-10.3); CREATININE 0.6 mg/dL (0.4-1.0); POTASSIUM 3.8 mmol/L (3.5-5.0); TOTAL PROTEIN 7.9 g/dL (6.7-8.2)
--- NOTE | 2021-04-27 08:30 | ED Physician Documentation ---
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 Review of Systems Constitutional: denies: Fever Eyes: denies: Decreased vision Ears: denies: Ear pain Nose: reports: Rhinorrhea / runny nose, Congestion Throat: denies: Sore throat Cardiac: denies: Chest pain / pressure, Palpitations Respiratory: reports: Cough. denies: Dyspnea GI: reports: Abdominal Pain. denies: Nausea, Vomiting : reports: Vaginal bleeding. denies: Dysuria, Frequency Skin: denies: Rash Musculoskeletal: denies: Neck pain, Back pain, Extremity pain Neurologic: denies: Generalized weakness, Focal weakness, Numbness PD PAST MEDICAL HISTORY - Past Medical History Past Medical History: Yes Cardiovascular: None Respiratory: None Neuro: None Endocrine/Autoimmune: None GI: Ulcerative colitis, Crohn's disease GEAR TECHNICIAN: None : None HEENT: None Psych: None Musculoskeletal: None Derm: None - Past Surgical History Past Surgical History: No - Present Medications Home Medications: Ambulatory Orders Medication Instructions Recorded Confirmed Dicyclomine [Bentyl] 20 mg PO QID PRN #15 capsule 06/17/19 04/27/21 Pnv,Calcium 72/Iron/Folic Acid 1 tab ORAL DAILY 04/27/21 04/27/21 [ Plus Tablet] Ustekinumab [Stelara] 90 mg IM ONCE 04/27/21 04/27/21 - Allergies Allergies/Adverse Reactions: Allergies Allergy/AdvReac Type Severity Reaction Status Date / Time latex Allergy Intermediate Itching Verified 04/27/21 06:53 Sulfa (Sulfonamide Allergy Unknown Verified 04/27/21 06:53 Antibiotics) tomato Allergy Cramps Verified 04/27/21 06:53 - Social History Does the pt smoke?: No Smoking Status: Never smoker Does the pt drink ETOH?: No Does the pt have substance abuse?: No - Immunizations Immunizations are current?: Yes - POLST Patient has POLST: No POLST Status: Full Code PD ED PE NORMAL - Vitals Vital signs reviewed: Yes (hypertension ) - General General: Alert and oriented X 3, No acute distress, Well developed/nourished - HEENT HEENT: Atraumatic, PERRL, EOMI - Neck Neck: Supple, no meningeal sign, No bony TTP - Cardiac Cardiac: RRR, No murmur - Respiratory Respiratory: No respiratory distress, Clear bilaterally - Abdomen Abdomen: Normal bowel sounds, Soft, Non tender, Non distended, No organomegaly - Back Back: No CVA TTP, No spinal TTP - Derm Derm: Normal color, Warm and dry, No rash - Extremities Extremities: No deformity, No edema - Neuro Neuro: Alert and oriented X 3, senior security analyst 2-12 intact, No motor deficit, No sensory deficit, Normal speech Eye Opening: Spontaneous Motor: Obeys Commands Verbal: Oriented GCS Score: 15 - Psych Psych: Normal mood, Normal affect Results - Vitals Vitals: Vital Signs - 24 hr 04/27/21 04/27/21 04/27/21 06:47 07:41 09:51 Temperature 36.8 C 36.8 C 36.6 C Heart Rate 76 64 66 Respiratory 18 18 16 Rate Blood Pressure 131/73 H 107/73 110/73 O2 Saturation 99 98 99 Oxygen O2 Source Room air - Labs Labs: Laboratory Tests 04/27/21 04/27/21 04/27/21 07:50 08:05 08:05 WBC 11.5 H RBC 4.88 Hgb 14.1 Hct 41.0 MCV 84.0 MCH 28.9 MCHC 34.4 RDW 12.7 Plt Count 198 MPV 10.2 Neut # (Auto) 8.9 H Lymph # (Auto) 1.9 Meeker # (Auto) 0.5 Eos # (Auto) 0.1 Baso # (Auto) 0.1 Absolute Nucleated RBC 0.00 Nucleated RBC % 0.0 Sodium Potassium Chloride Carbon Dioxide Anion Gap BUN Creatinine Estimated GFR (MDRD) Glucose Calcium Total Bilirubin AST ALT Alkaline Phosphatase Total Protein Albumin Globulin Albumin/Globulin Ratio Lipase HCG, Quant 33447.00 Urine Color STRAW Urine Clarity CLEAR Urine pH 6.5 Ur Specific [place] <=1.005 Urine Protein NEGATIVE Urine Glucose (UA) NEGATIVE Urine Ketones NEGATIVE Urine Occult Blood TRACE-LYSE Urine Nitrite NEGATIVE Urine Bilirubin NEGATIVE Urine Urobilinogen 0.2 (NORMAL) Ur Leukocyte Esterase SMALL H Urine RBC 0-5 Urine WBC 0-3 Urine WBC Clumps NONE SEEN Ur Squamous Epith Cells RARE Squamous Urine Bacteria Moderate H Ur Microscopic Review INDICATED Urine Culture Comments INDICATED 04/27/21 08:05 WBC RBC Hgb Hct MCV MCH MCHC RDW Plt Count MPV Neut # (Auto) Lymph # (Auto) Meeker # (Auto) Eos # (Auto) Baso # (Auto) Absolute Nucleated RBC Nucleated RBC % Sodium 136 Potassium 3.8 Chloride 102 Carbon Dioxide 22 Anion Gap 12.0 BUN 16 Creatinine 0.6 Estimated GFR (MDRD) 114 Glucose 89 Calcium 9.9 Total Bilirubin 0.6 AST 17 ALT 19 Alkaline Phosphatase 45 Total Protein 7.9 Albumin 4.0 Globulin 3.9 Albumin/Globulin Ratio 1.0 Lipase 24 HCG, Quant Urine Color Urine Clarity Urine pH Ur Specific [place] Urine Protein Urine Glucose (UA) Urine Ketones Urine Occult Blood Urine Nitrite Urine Bilirubin Urine Urobilinogen Ur Leukocyte Esterase Urine RBC Urine WBC Urine WBC Clumps Ur Squamous Epith Cells Urine Bacteria Ur Microscopic Review Urine Culture Comments - Rads (name of study) ob u/s Radiology: Prelim report reviewed, EMP read indepedently, See rad report PD MEDICAL DECISION MAKING - ED course Complexity details: reviewed results, re-evaluated patient, considered differential, d/w patient ED course: 36-year-old female with vaginal bleeding and cramping has a viable intrauterine . A quantitative hCG is obtained for future potential evaluation of miscarriage. The patient is given odds of 98% chance of carrying this to term. Departure - Departure Disposition: 01 Home, Self Care Clinical Impression: Threatened affecting intrauterine Condition: Stable Instructions: ED Miscarriage Poss Follow-Up: Your, OB doctor [Other] Comments: Vianca today it looks like there is an intrauterine measuring about 6 weeks 3 days and the quantitative hCG is 66,332. A viable fetus under these circumstances indicates a good likelihood that you will carry this to term. Increasing bleeding and pain are a concern and the recommendation is for an early follow up with your market intelligence consultant doctor. Discharge Date/Time: 04/27/21 09:52
[2021-04-27 08:45] LABS: CLARITY,URINE CLEAR (CLEAR)
[2021-04-27 08:46] LABS: BACTERIA,URINE Moderate /HPF (None Seen); RBC,URINE 0-5 /HPF (0-5); SQUAMOUS EPITHELIAL CELL,UR RARE Squamous (<= Few); WBC CLUMPS,URINE NONE SEEN; WBC,URINE 0-3 /HPF (0-5)
[2021-04-27 09:51] VITALS: BP 110/73
--- NOTE | 2021-04-27 10:24 | Ultrasound Report ---
PROCEDURE: OB First Trimester INDICATIONS: abd pain early preg OUTSIDE/PRIOR DATING DATA: Last menstrual period (LMP): 03/17/2021. LMP-based estimated date of delivery (ABELINO): 12/22/2021. First dating scan (date and location): 04/27/2021. Estimated date of delivery (ABELINO) from first dating scan: 12/18/2021. The below data below was generated using the ultrasound derived ABELINO of 12/18/2021 TECHNIQUE: Real-time scanning was performed of the fetus and maternal pelvic organs, with image documentation. COMPARISON: None. FINDINGS: Embryo: There is an intrauterine with a gestational sac, yolk sac, and pole identifi ed. The crown-rump length measures up to 0.6 cm corresponding to a gestational age of 6 weeks 3 days. There is heart motion with a rate of 1 23 bpm. Measurement variability in dating: +/- 4 weeks by LMP, +/- 7 days by mean sac diameter (use before 6 weeks gestation if crown-rump length not able to be measured), +/- 5 days by crown-rump length (6-12 weeks gestation). Maternal organs: There is a thick-walled cyst within the right ovary measuring up to 3.4 x 2.5 x 3.2 cm with internal septations as well as eccentric hypoechoic internal components. No internal vascular ity and color Doppler interrogation. There is mild peripheral flow noted. Findings are consistent wit h a corpus luteal cyst. Left ovary appears normal in size and demonstrates no discrete cystic or lynnette d mass. No adnexal masses. There is a small amount of free fluid adjacent to the right ovary. IMPRESSION: 1. Single living intrauterine with calculated gestational age of 6 weeks 3 days correspondi ng to an estimated delivery date of 12/18/2021. 2. Thick-walled cyst in the right ovary likely represents a corpus luteal cyst. Reviewed by: Vazquez Martin MD on 04/27/2021 10:23 AM PST Approved by: Vazquez Martin MD on 04/27/2021 10:23 AM PST Station ID: [id number]
--- NOTE | 2021-04-27 10:25 | Ultrasound Report ---
PROCEDURE: OB Transvaginal INDICATIONS: abdominal pain early preg OUTSIDE/PRIOR DATING DATA: Last menstrual period (LMP): 03/17/2021. LMP-based estimated date of delivery (ABELINO): 12/22/2021. First dating scan (date and location): 04/27/2021. Estimated date of delivery (ABELINO) from first dating scan: 12/18/2021. The below data below was generated using the ultrasound derived ABELINO of 12/18/2021 TECHNIQUE: Real-time transabdominal and transvaginal scanning was performed of the fetus and maternal pelvic org ans, with image documentation. COMPARISON: None. FINDINGS: Embryo: There is an intrauterine with a gestational sac, yolk sac, and pole identifi ed. The crown-rump length measures up to 0.6 cm corresponding to a gestational age of 6 weeks 3 days. There is heart motion with a rate of 1 23 bpm. Measurement variability in dating: +/- 4 weeks by LMP, +/- 7 days by mean sac diameter (use before 6 weeks gestation if crown-rump length not able to be measured), +/- 5 days by crown-rump length (6-12 weeks gestation). Maternal organs: There is a thick-walled cyst within the right ovary measuring up to 3.4 x 2.5 x 3.2 cm with internal septations as well as eccentric hypoechoic internal components. No internal vascular ity and color Doppler interrogation. There is mild peripheral flow noted. Findings are consistent wit h a corpus luteal cyst. Left ovary appears normal in size and demonstrates no discrete cystic or lynnette d mass. No adnexal masses. There is a small amount of free fluid adjacent to the right ovary. IMPRESSION: 1. Single living intrauterine with calculated gestational age of 6 weeks 3 days correspondi ng to an estimated delivery date of 12/18/2021. 2. Thick-walled cyst in the right ovary likely represents a corpus luteal cyst. Reviewed by: Vazquez Martin MD on 04/27/2021 10:24 AM PST Approved by: Vazquez Martin MD on 04/27/2021 10:24 AM PST Station ID: [id number]
--- NOTE | 2021-04-29 16:53 | ED Physician Documentation ---
ED Addendum - Addendum Addendum: 04/29/21 16:52 Urine culture came back positive for E. coli. Macrobid 100 mg p.o. twice daily x5 days was sent electronically to the [facility] pharmacy. Departure - Departure Disposition: 01 Home, Self Care Clinical Impression: Threatened affecting intrauterine UTI (urinary tract infection) Qualifiers: Urinary tract infection type: acute cystitis Hematuria presence: without hematuria Qualified Code(s): N30.00 - Acute cystitis without hematuria Condition: Stable Instructions: ED Miscarriage Poss Follow-Up: Your, OB doctor [Other] Prescriptions: Nitrofurantoin [Macrobid] 100 mg PO BID #10 cap Comments: Vianca today it looks like there is an intrauterine measuring about 6 weeks 3 days and the quantitative hCG is 66,332. A viable fetus under these circumstances indicates a good likelihood that you will carry this to term. Increasing bleeding and pain are a concern and the recommendation is for an early follow up with your assistant coach doctor. Discharge Date/Time: 04/27/21 09:52
== END 2021-04-27 09:52 | disposition home or self-care (01) ==
LOC: ED 06:46
DX: O20.0 Threatened abortion (principal); O23.11 Infections of bladder in pregnancy, first trimester; B96.20 Unspecified Escherichia coli [E. coli] as the cause of diseases classified elsewhere; Z3A.01 Less than 8 weeks gestation of pregnancy
CPT/HCPCS: 36415; 80053; 81001; 81003; 83690; 84702; 85025; 87086; 87181; 99282; 99284